=== PATIENT | female | born 1945 | race Two or more races ===

== ENCOUNTER 2020-08-09 09:25 | Outpatient (REF) | payer MEDICARE, SELFPAY ==
[2020-08-09 10:48] LABS: MANUAL DIFF FLAG NO
[2020-08-09 10:53] LABS: Basophils Absolute Auto 0.1 X10*3/uL (0.0-0.2); Basophils Percent Auto 0.5 % (0-2); Eosinophils Absolute Auto 0.1 X10*3/uL (0.0-0.4); Eosinophils Percent Auto 0.8 % (0-4); Hematocrit 32.3 % (37-47); Hemoglobin 10.2 g/dl (12.0-16.0); Imm Gran Abs Auto 0.07 X10*3/uL (0.00-0.03); Imm Gran Pct Auto 0.7 % (0.0-0.4); Lymphocytes Absolute Auto 2.1 X10*3/uL (1.2-4.9); Lymphocytes Percent Auto 21.4 % (20-40); Mean Corpuscular HGB Conc 31.6 g/dl (31.0-35.0); Mean Corpuscular Hemoglobin 29.1 pg (27.0-33.0); Mean Platelet Volume 9.4 fL (9.4-12.3); Monocytes Absolute Auto 0.6 X10*3/uL (0.1-1.2); Monocytes Percent Auto 6.3 % (2-11); Neutrophils Absolute Auto 6.8 X10*3/uL (2.0-8.3); Neutrophils Percent Auto 70.3 % (45-73); Platelet Count 414 X10*3/uL (160-400); Red Blood Count 3.51 X10*6/uL (4.20-5.50); Red Cell Distribution Width 13.2 % (11.0-16.0); White Blood Count 9.7 X10*3/uL (4.8-10.8)
[2020-08-09 11:19] LABS: Alanine Aminotransferase 21 U/L (0-31); Albumin Level 3.9 g/dL (3.5-5.0); Alkaline Phosphatase 67 U/L (39-117); Anion Gap 13 (12-20); Aspartate Amino Transferase 10 U/L (5-31); Bilirubin Total 0.3 mg/dL (0.0-1.0); Blood Urea Nitrogen 35 mg/dL (9-16); Calcium 9.3 mg/dL (8.4-10.2); Carbon Dioxide 24 mmol/L (22-29); Chloride 106 mmol/L (96-108); Cholesterol 153 mg/dL; Estimated Glomerular Filt Rate 41; Glucose Fasting 133 mg/dL (60-99); HDL Cholesterol 50 mg/dL; LDL Cholesterol Calculated 84 mg/dl; Potassium 4.2 mmol/l (3.3-5.1); Sodium 139 mmol/L (135-145); Total Protein 6.2 g/dL (6.5-8.0); Triglycerides 96 mg/dL
[2020-08-09 11:43] LABS: Vitamin D 25-OH Total 44.1 ng/mL (>30)
[2020-08-09 12:07] LABS: Folate > 20.0 ng/mL (> or = 4.0); Vitamin B12 380 pg/mL (200-900)
== END 2020-08-09 09:26 | disposition home or self-care (01) ==
LOC: HO.LAB 09:25
PROVIDERS: PCP Internal Medicine; Visit Provider Internal Medicine Hypertension Specialist
DX: E11.22 Type 2 diabetes mellitus with diabetic chronic kidney disease (principal); I12.9 Hypertensive chronic kidney disease with stage 1 through stage 4 chronic kidney disease, or unspecified chronic kidney disease; N18.30 Chronic kidney disease, stage 3 unspecified; E78.00 Pure hypercholesterolemia, unspecified; E53.8 Deficiency of other specified B group vitamins; E55.9 Vitamin D deficiency, unspecified
CPT/HCPCS: 36415; 80053; 80061; 82306; 82607; 82746; 85025

== ENCOUNTER 2020-08-17 13:29 | Emergency (ER) | payer MEDICARE, SELFPAY ==
[2020-08-17 13:43] VITALS: BP 154/58; BP 176/90; PULSE 104; PULSE 112; RESP 17; TEMP 37.1; BMI 38.9
--- NOTE | 2020-08-17 13:43 | ED_ITS ---
HPI - Chest Pain General Chief Complaint: Chest Pain Stated Complaint: chest pain, anxiety Time Seen by Provider: 08/17/20 13:43 Source: patient and EMS Mode of arrival: ambulatory Limitations: no limitations History of Present Illness HPI narrative: patient with no known coronary artery disease with history of hypertension diabetes, noticed pain in the left chest around 07:00 o'clock when she woke up lasted for 2- 3 minutes without any diaphoresis nausea vomiting or shortness breath patient had similar pain in the past with anxiety today she did not have much anxiety, pain was dull aching pain complaint: chest pain and chest heaviness Onset (ago): hour(s) (7) Prior episodes: Yes Onset: during rest Pain location: left chest Pain radiation: none Severity: mild Quality: aching Relieving factors: nothing Exacerbating factors: nothing Treatment prior to arrival: none Related Data Home Medications Medication Instructions Recorded Confirmed cholecalciferol (vitamin D3) 25 25 mcg PO DAILY 08/07/20 mcg (1,000 unit) tablet furosemide 20 mg tablet 20 mg PO DAILY 08/07/20 linagliptin 5 mg tablet 5 mg PO DAILY 08/07/20 metformin 500 mg tablet,extended 1,000 mg PO BEDTIME 08/07/20 release 24 hr montelukast 10 mg tablet 10 mg PO DAILY 08/07/20 Allergies Allergy/AdvReac Type Severity Reaction Status Date / Time fish derived [FISH] Allergy Unknown RASH, Unverified 07/26/20 15:57 ITCHY linagliptin [Tradjenta] AdvReac Unknown rash Verified 06/21/20 00:00 Review of Systems Review of Systems: REVIEW OF SYSTEMS: Pertinent positives and negatives are stated above in the history. GEN: no fevers, chills, fatigue HEENT: no nasal congestion, sore throat, ear pain NEURO: no headache, dizziness, focal weakness PULM: no cough, shortness of breath CV: no palpitations, LE edema ABD: no abdominal pain, nausea, vomiting, diarrhea : no dysuria, urgency, frequency SKIN: no rash ROS otherwise negative x 10 PMFSH Past Medical History Medical History Anxiety Asthma CHF (congestive heart failure) Depression Diabetes mellitus, type 2 Hypertension Renal insufficiency Surgical History H/O: hysterectomy Family History Family History Father No problems noted. Mother No problems noted. Social History Social History Alcohol intake: never Use of substances other than those prescribed or required for medical reasons: No Any prior treatment program specific to substance use: No Advance Directives: Yes Advance Directives on File: Yes Advance Directives Date on File: 11/09/00 Physical Exam Vital Signs and I&O and Narrative: Vital Signs and I&O: Vital Signs Temp 98.8 F 08/17/20 13:43 Pulse 104 H 08/17/20 13:43 Resp 17 08/17/20 13:43 BP 154/58 H 08/17/20 13:43 Intake & Output 08/16/20 08/17/20 08/17/20 18:59 06:59 18:59 Weight 84.395 kg Body Mass Index 38.9 Appearance: Alert. Oriented X3. No acute distress. Eyes: Pupils equal, round and reactive to light. ENT: Pharynx normal. Neck: Normal inspection. Neck supple. CVS: Normal heart rate and rhythm. Pulses normal. Respiratory: No respiratory distress. Breath sounds normal. Abdomen: Soft and nontender. Skin: Skin warm and dry. Normal skin color. Normal skin turgor. Extremities: No lower extremity edema. No lower extremity edema. Neuro: Oriented X 3. No motor deficit. No sensory deficit. Course Course Course Narrative: patient with history of anxiety and chest pain which happened in the past similar kind of pain came here for left chest pain lasted only for few minutes high sensitive troponin is negative normal EKG. Patient advised to follow-up with her primary care doctor chest pain likely from anxiety MDM - Chest Pain Differential Diagnosis Differential diagnosis: Likely stable angina, atypical chest pain and chest pain Lab Data Result diagrams: 08/17/20 14:17 08/17/20 14:17 Labs: Lab Results 08/17/20 08/17/20 08/17/20 Range/Units 14:17 14:17 14:17 WBC 10.0 (4.8-10.8) X10*3/uL RBC 3.63 L (4.20-5.50) X10*6/uL Hgb 10.5 L (12.0-16.0) g/dl Hct 33.5 L (37-47) % MCV 92.3 (80-98) fL MCH 28.9 (27.0-33.0) pg MCHC 31.3 (31.0-35.0) g/dl RDW 13.0 (11.0-16.0) % Plt Count 406 H (160-400) X10*3/uL MPV 9.2 L (9.4-12.3) fL Immature Gran % (Auto) 0.7 H (0.0-0.4) % Neut % (Auto) 68.8 (45-73) % Lymph % (Auto) 21.0 (20-40) % [place] % (Auto) 8.4 (2-11) % Eos % (Auto) 0.6 (0-4) % Baso % (Auto) 0.5 (0-2) % Lymph # (Auto) 2.1 (1.2-4.9) X10*3/uL [place] # (Auto) 0.8 (0.1-1.2) X10*3/uL Eos # (Auto) 0.1 (0.0-0.4) X10*3/uL Baso # (Auto) 0.1 (0.0-0.2) X10*3/uL Abs Immat Gran (auto) 0.07 H (0.00-0.03) X10*3/uL Absolute Neuts (auto) 6.9 (2.0-8.3) X10*3/uL Absolute Nucleated RBC 0.000 (0.0-0.012) X10*3/uL Nucleated RBC % (auto) 0.0 (0.0-0.2) /100WBC Hold Blue Top SEE NOTE Sodium 139 (135-145) mmol/L Potassium 4.5 (3.3-5.1) mmol/l Chloride 104 (96-108) mmol/L Carbon Dioxide 23 (22-29) mmol/L Anion Gap 17 (12-20) BUN 38 H (9-16) mg/dL Creatinine 1.46 H (0.5-1.4) mg/dL Estim Creat Clear Calc 30.1 Estimated GFR 35 Random Glucose 134 H (60-115) mg/dL Calcium 9.1 (8.4-10.2) mg/dL Troponin I High Sens (<3.5-17.0) ng/L 08/17/20 Range/Units 14:17 WBC (4.8-10.8) X10*3/uL RBC (4.20-5.50) X10*6/uL Hgb (12.0-16.0) g/dl Hct (37-47) % MCV (80-98) fL MCH (27.0-33.0) pg MCHC (31.0-35.0) g/dl RDW (11.0-16.0) % Plt Count (160-400) X10*3/uL MPV (9.4-12.3) fL Immature Gran % (Auto) (0.0-0.4) % Neut % (Auto) (45-73) % Lymph % (Auto) (20-40) % [place] % (Auto) (2-11) % Eos % (Auto) (0-4) % Baso % (Auto) (0-2) % Lymph # (Auto) (1.2-4.9) X10*3/uL [place] # (Auto) (0.1-1.2) X10*3/uL Eos # (Auto) (0.0-0.4) X10*3/uL Baso # (Auto) (0.0-0.2) X10*3/uL Abs Immat Gran (auto) (0.00-0.03) X10*3/uL Absolute Neuts (auto) (2.0-8.3) X10*3/uL Absolute Nucleated RBC (0.0-0.012) X10*3/uL Nucleated RBC % (auto) (0.0-0.2) /100WBC Hold Blue Top Sodium (135-145) mmol/L Potassium (3.3-5.1) mmol/l Chloride (96-108) mmol/L Carbon Dioxide (22-29) mmol/L Anion Gap (12-20) BUN (9-16) mg/dL Creatinine (0.5-1.4) mg/dL Estim Creat Clear Calc Estimated GFR Random Glucose (60-115) mg/dL Calcium (8.4-10.2) mg/dL Troponin I High Sens 7.5 (<3.5-17.0) ng/L ECG Data ECG #1: Attestation: I personally reviewed and interpreted this ECG as follows: ECG interpretation date: 08/17/20 ECG interpretation time: 13:58 Prior ECG tracings: not available for review Interpretation: EKGRate: 96 Rhythm: sinus Moseley: normal Normal P waves. Normal TREE. Normal QRS complex. ST T wave : no acute change qTC: normal normal EKG Scores Heart Score History: -0- slightly suspicious ECG: -0- normal Age: -2- > or = 65 Risk factory: -1- 1 or 2 risk factors ( hypertension, diabetes) Troponin: -0- < or = normal limit Score: 3 Risk: 1.7%
--- NOTE | 2020-08-17 13:44 | XR_ITS ---
EXAMINATION: XR CHEST CLINICAL INFORMATION: Chest pain COMPARISON: None TECHNIQUE: Frontal view of the chest was obtained. FINDINGS: The cardiac and mediastinal contours are normal. The lungs are clear. There is no pleural effusion or pneumothorax. There are degenerative changes of the spine. IMPRESSION: No evidence for acute disease in the chest.
--- NOTE | 2020-08-17 13:45 | ECG_ITS ---
Test Reason : CHEST PAIN Blood Pressure : / mmHG Vent. Rate : 096 BPM Atrial Rate : 096 BPM P-R Int : 148 ms QRS Dur : 074 ms QT Int : 336 ms P-R-T Axes : 059 033 034 degrees QTc Int : 424 ms Normal sinus rhythm Normal ECG When compared with ECG of 02-JUN-2017 08:59, Premature atrial complexes are no longer Present Referred By: Dylan Cosme Electronically Signed By:VISHAL MARQUEZ MD
[2020-08-17 14:21] LABS: MANUAL DIFF FLAG NO
[2020-08-17 14:26] LABS: Basophils Absolute Auto 0.1 X10*3/uL (0.0-0.2); Basophils Percent Auto 0.5 % (0-2); Eosinophils Absolute Auto 0.1 X10*3/uL (0.0-0.4); Eosinophils Percent Auto 0.6 % (0-4); Hematocrit 33.5 % (37-47); Hemoglobin 10.5 g/dl (12.0-16.0); Imm Gran Abs Auto 0.07 X10*3/uL (0.00-0.03); Imm Gran Pct Auto 0.7 % (0.0-0.4); Lymphocytes Absolute Auto 2.1 X10*3/uL (1.2-4.9); Mean Corpuscular HGB Conc 31.3 g/dl (31.0-35.0); Mean Corpuscular Hemoglobin 28.9 pg (27.0-33.0); Mean Corpuscular Volume 92.3 fL (80-98); Mean Platelet Volume 9.2 fL (9.4-12.3); Monocytes Absolute Auto 0.8 X10*3/uL (0.1-1.2); Monocytes Percent Auto 8.4 % (2-11); Neutrophils Absolute Auto 6.9 X10*3/uL (2.0-8.3); Neutrophils Percent Auto 68.8 % (45-73); Platelet Count 406 X10*3/uL (160-400); Red Blood Count 3.63 X10*6/uL (4.20-5.50)
[2020-08-17 14:48] LABS: Anion Gap 17 (12-20); Blood Urea Nitrogen 38 mg/dL (9-16); Calcium 9.1 mg/dL (8.4-10.2); Carbon Dioxide 23 mmol/L (22-29); Chloride 104 mmol/L (96-108); Creatinine Clr Calc Pharmacy 30.1; Estimated Glomerular Filt Rate 35; Glucose Random 134 mg/dL (60-115); Potassium 4.5 mmol/l (3.3-5.1); Sodium 139 mmol/L (135-145)
[2020-08-17 14:55] LABS: Troponin-I High Sensitivity 7.5 ng/L (<3.5-17.0)
[2020-08-17] MEDS: Aspirin 81 MG TAB.CHEW 162 MG PO (14:57)
[2020-08-17 16:36] VITALS: BP 143/59; PULSE 98; RESP 20; O2SAT 99
== END 2020-08-17 16:38 | disposition home or self-care (01) ==
PROVIDERS: Emergency Provider Internal Medicine; PCP Internal Medicine
DX: R07.9 Chest pain, unspecified (principal); F41.1 Generalized anxiety disorder; F43.0 Acute stress reaction; Z79.899 Other long term (current) drug therapy
CPT/HCPCS: 36415; 71045; 80048; 84484; 85025; 93005; 99284

== ENCOUNTER → 2020-08-28 11:28 | Outpatient (BNVA) | payer MEDICARE, SELFPAY | PROVIDERS: PCP Internal Medicine; Referring Provider Internal Medicine; Visit Provider Internal Medicine | DX: J44.9 Chronic obstructive pulmonary disease, unspecified (principal); G47.33 Obstructive sleep apnea (adult) (pediatric); R53.1 Weakness; E66.9 Obesity, unspecified; Z79.899 Other long term (current) drug therapy | CPT/HCPCS: 99213 ==

== ENCOUNTER 2020-10-03 10:01 | Outpatient (REF) | payer MEDICARE, SELFPAY ==
--- NOTE | 2020-10-03 | MM_ITS ---
EXAMINATION: MM SCREENING DIGITAL MAMMOGRAPHY, BILATERAL CLINICAL INFORMATION: Screening. Asymptomatic. The lifetime risk of breast cancer based on the Tyrer-Cuzick Model is 3%. COMPARISON: Mammography: 05/16/2019, 01/22/2017, 07/24/2015 TECHNIQUE: Digital mammography is performed in craniocaudal and mediolateral oblique views along with computer-aided detection (CAD). Additional bilateral exaggerated CC views are provided. FINDINGS: There are scattered areas of fibroglandular density (ACR BI-RADS breast composition Category b). There are no significant masses, abnormal calcifications, or other abnormalities. No developing density. No significant changes from prior studies. MM/MM screening mammo BI IMPRESSION: There are no significant changes from prior exams. ASSESSMENT: BI-RADS 1: Negative RECOMMENDATION: Routine annual mammography screening. This patient's information was entered into a reminder system with a target due date for their next mammogram.
== END 2020-10-03 10:02 | disposition home or self-care (01) ==
LOC: HO.MAMMO 10:01
PROVIDERS: PCP Internal Medicine; Visit Provider Internal Medicine
DX: Z12.31 Encounter for screening mammogram for malignant neoplasm of breast (principal)
CPT/HCPCS: 77067

== ENCOUNTER 2020-10-09 15:02 | Outpatient (REF) | payer MEDICARE, SELFPAY ==
[2020-10-13 14:32] LABS: Triiodothyronine T3 Reverse 22 ng/dL (8-25)
== END 2020-10-09 15:03 | disposition home or self-care (01) ==
LOC: HO.LAB 15:02
PROVIDERS: PCP Internal Medicine; Visit Provider Psychiatry & Neurology Neurology
DX: R25.1 Tremor, unspecified (principal)
CPT/HCPCS: 84436; 84482

== ENCOUNTER → 2020-12-19 11:18 | Outpatient (BNVA) | payer MEDICARE, SELFPAY | PROVIDERS: PCP Internal Medicine; Visit Provider Internal Medicine | DX: Z13.89 Encounter for screening for other disorder (principal) | CPT/HCPCS: Q3014 ==

== ENCOUNTER → 2021-01-31 08:23 | Outpatient (BNVA) | payer MEDICARE, SELFPAY | PROVIDERS: PCP Internal Medicine; Visit Provider Internal Medicine | DX: J44.9 Chronic obstructive pulmonary disease, unspecified (principal); G47.33 Obstructive sleep apnea (adult) (pediatric); E66.9 Obesity, unspecified | CPT/HCPCS: 99212 ==

== ENCOUNTER 2021-03-05 09:00 | Outpatient (RCR) | payer MEDICARE, SELFPAY ==
--- NOTE | 2021-02-12 10:02 | MHC.OT.OEV ---
[address] [phone] F: [phone] Occupational Therapy Evaluation Diagnosis: Left elbow pain s/p contusion Date of Onset: 12/10/20 Date of Surgery: Attending Provider: Dr Jones Prescribed Treatment: Eval and Treat MD Follow Up Appointment: History of Current Condition: Pt bumped her left elbow a couple months ago and presents w/ persistant pain. 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 Living Situation, Family and/or Social Support: Lives alone, family nearby Current Level of Function and Occupation Self Care, Employment, Leisure: Pt limited at baseline w/ minimal active participation in care Still able to cut food and eat, using right hand for most basic tasks Sleep: No change in sleep due to elbow Driving: N/A Vision: Balance: Pain Assessment Pain Score: 8 Pain Scale Used: Numeric (0 - 10) Pain Location and Description: Left posterior elbow, tender, sharp 8/10 resting/constant Aggravating Factors: Moving the arm Alleviating Factors: Tylenol w/ some relief Skin and Soft Tissue Assessment Skin and Soft Tissue: Comments: Edema Excess adipose tissue Nerve assessment Ulnar Nerve: WFL Median Nerve: B/L Impaired Radial Nerve: WFL Comments: Sensory Assessment Temperature: Light Touch: Proprioception: Vibration: Comments: Denies sesnory changes or numbness/tingling Edema Assessment Upper Extremity: Lower Extremity: Comments: Dexterity Assessment Dexterity: Comments: Special Tests Comments: AROM(PROM) Strength Cervical Cervical Flexion: Cervical Extension: Cervical Lateral Flexion: Cervical Rotation: Comments: Shoulder Flexion: R 85 L 75 Extension: Abduction: Internal Rotation: External Rotation: Comments: Flexion: Extension: Abduction: Internal Rotation: External Rotation: Comments: Elbow Flexion: R 150 L 115 Extension: R 0 L 15 Pronation: Supination: Comments: Pulling pain in elbow w/ flexion Flexion: Extension: Pronation: Supination: Comments: Wrist Flexion: Extension: Ulnar Deviation: Radial Deviation: Comments: Flexion: Extension: Ulnar Deviation: Radial Deviation: Comments: Thumb Thumb CMC Flexion: Thumb MCP Flexion: Thumb IP Flexion: Radial Abduction: Palmar Abduction: Perry (Kapandji 0-10): Comments: Digits Index MCP: PIP: DIP: Long MCP: PIP: DIP: Ring MCP: PIP: DIP: Small MCP: PIP: DIP: Comments: WFL Gross Grasp: R 18lb L 15lb Lateral Pinch: Two-Point Pinch: Three-Jaw Anderson: Comments: Patient Education Primary Language: Residential Treatment Specialist Required: Yes Current Knowledge: Understands information with skills for self-management Teaching Method: Demonstration Handouts Verbal Education Needs Identified on Evaluation: ADL's Disease Information Exercise Pain Safety How did patient/family demonstrate learning? Patient verbalizes Barriers to Learning: None Readiness for Learning: Accepting Who was educated? Patient Caregiver Comments: Plan of Care Assessment: 75 yo female presents w/ persistent left elbow pain after bumping her elbow a couple months ago. 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 She reports no significant ADL limitations due to high needs at baseline, but does have decreased elbow ROM. Strength and shoulder ROM are limited bilaterally. She reports high resting pain in posterior elbow, tender to touch and increases w/ elbow range. She will benefit from brief course of OT for HEP to increase range and strength and educate on joint protection to allow for healing elbow s/p contusion. STG Duration: 3 weeks Short Term Goals: Ind w/ HEP B/L shoulder flex >100 degrees B/L gross grasp >20lb Full elbow extension <3/10 resting pain Good awareness of joint protection of left elbow LTG Duration: Coupon Manifest Clerk Goals: Frequency and Duration: The patient will be seen 1x/wk for 3 weeks Treatment Plan: Therapeutic Exercise Therapeutic Activity Home Exercise Program Patient Education Edema Control Ultrasound MHP Cold Packs Soft Tissue Mobilization Electronically Signed By: Korin Arce OTR/L Reviewed/agree with student documentation: N/A Therapist: Please sign and return to therapist, Thank you for your referral.
--- NOTE | 2021-03-05 09:57 | MHC.OT.DC ---
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 Goals met Pt with mild elbow edema and low pain at night, otherwise pt reports being at her prior level of function I anticipate continued improvement with elbow protection techniques and use of Ktape for pain and edema. Pain free during day,low pain at night. Electronically Signed By: Sapna Santos OT CHT CLT Reviewed/agree with student documentation: N/A Therapist: Please Sign and return to therapist, thank you for your referral.
== END 2021-03-05 09:58 | disposition other institution (70) ==
LOC: HO.OT 09:00
PROVIDERS: PCP Internal Medicine; Visit Provider Internal Medicine
DX: M25.522 Pain in left elbow (principal)
CPT/HCPCS: 97035; 97110; 97140; 97165

== ENCOUNTER 2021-04-03 09:00 | Outpatient (RCR) | payer MEDICARE, SELFPAY ==
[2021-03-25 09:00] VITALS: BP 155/67; PULSE 91
--- NOTE | 2021-05-03 10:02 | MHC.PT.DC ---
[facility] [place] Office [place] Office [place] Office [address] [phone] F: [phone] F: [phone] F: [phone] F: [phone] Physical Therapy Discharge Report Diagnosis: LOW BACK PAIN Date of Surgery: NA Date of Evaluation: 03/25/21 Date of Discharge: Treatments to Date: 2 Cancellations to Date: 0 No Shows to Date: 1 Discharge Status: Discharge Summary: AT LAST ATTENDED VISIT, TREATING THERAPIST REPORTS: 04/03/2021 Meena arrived today stating she feels okay. Great difficulty noted with sit -> stand -> sit -> supine. Mat exercises were difficult for Meena, quad sets increased R knee pain. She put forth a lot of effort into the exercises, muscle activation was palpated. Hip ABD and brace marching were best tolerated for mat exercises. Sitting exercises were tolerated much better. PT Called Meena's to discuss the possibility of home PT d/t Meena expressing how difficult coming to outpatient PT was for her. Continue per tolerance. FOLLOWING TREATMENT IT WAS DISCUSSED THAT PERHAPS HOME CARE WOULD BE MORE APPROPRIATE TO WHICH FAMILY AGREED AND HAS PURSUED. SHE IS DCeD FROM OUR SERVICES AT THIS TIME. Electronically signed by: CLARA BECK PT, DPT Please sign and return to therapist. Thank you for your referral.
== END 2021-04-03 15:00 | disposition home or self-care (01) ==
LOC: HO.PT 09:00
PROVIDERS: Visit Provider Internal Medicine
DX: M54.9 Dorsalgia, unspecified (principal)
CPT/HCPCS: 97110; 97161; 97535

== ENCOUNTER → 2021-06-05 09:42 | Outpatient (BNVA) | payer MEDICARE, SELFPAY | PROVIDERS: PCP Internal Medicine; Visit Provider Internal Medicine | DX: J44.9 Chronic obstructive pulmonary disease, unspecified (principal); G47.33 Obstructive sleep apnea (adult) (pediatric); E66.9 Obesity, unspecified; Z79.899 Other long term (current) drug therapy | CPT/HCPCS: 99212 ==

== ENCOUNTER → 2021-10-08 10:16 | Outpatient (BNVA) | payer MEDICARE, SELFPAY | PROVIDERS: PCP Internal Medicine; Visit Provider Internal Medicine | DX: J44.9 Chronic obstructive pulmonary disease, unspecified (principal); R06.02 Shortness of breath; E11.9 Type 2 diabetes mellitus without complications; I10 Essential (primary) hypertension; E78.00 Pure hypercholesterolemia, unspecified; E66.9 Obesity, unspecified; E55.9 Vitamin D deficiency, unspecified; G47.33 Obstructive sleep apnea (adult) (pediatric); F41.8 Other specified anxiety disorders; Z88.8 Allergy status to other drugs, medicaments and biological substances; Z91.013 Allergy to seafood; Z79.84 Long term (current) use of oral hypoglycemic drugs | CPT/HCPCS: 99212 ==

== ENCOUNTER 2022-03-19 09:48 | Outpatient (REF) | payer OTHER, SELFPAY ==
[2022-03-19 10:59] LABS: COVID-19 Test Positive (Negative)
== END 2022-03-19 09:49 | disposition home or self-care (01) ==
LOC: HO.LAB 09:48
PROVIDERS: Visit Provider Internal Medicine
DX: Z20.822 Contact with and (suspected) exposure to COVID-19 (principal)
CPT/HCPCS: 87635; C9803

== ENCOUNTER 2022-03-28 09:08 | Inpatient (IN) | payer OTHER, SELFPAY ==
[2022-03-28] VITALS (9 sets, daily range): BP systolic 143–192; BP diastolic 51–95; PULSE 101–140; RESP 18–32; TEMP 36.4–36.9; O2SAT 93–99; BMI 30.2
--- NOTE | ~2022-03-28 | NM_ITS ---
EXAMINATION: PULMONARY PERFUSION STUDY CLINICAL INFORMATION: Shortness of breath, elevated d-dimer COMPARISON: No previous lung scan is available for comparison. Radiographs of the chest dated 03/28/2022, the same date as this lung scan, are available for comparison. TECHNIQUE: Following the intravenous administration of 3.8 mCi Tc-99m MAA an 8-view perfusion study was performed using a dual detector gamma scintillation camera. No ventilation images were obtained. FINDINGS: Perfusion images: No segmental perfusion defects are present. There is minimal heterogeneity present bilaterally. There is mild blunting of the right costophrenic angle, best visualized on the VILLATORO and LPO views. No additional focal anatomic appearing perfusion defects are present. The cardiac silhouette is mildly dilated. The contemporaneous chest radiographs show bilateral small pleural effusions and pulmonary vascular congestion and cardiomegaly. NM/NM pul perfusion IMPRESSION: Very low probability of pulmonary embolism.
--- NOTE | ~2022-03-28 | XR_ITS ---
EXAMINATION: XR CHEST CLINICAL INFORMATION: Shortness of breath. COMPARISON: 08/17/2020 chest radiograph. TECHNIQUE: 2 views of the chest were obtained. FINDINGS: Increased pulmonary vascular markings with very small bilateral pleural effusions. The heart is mildly enlarged. The mediastinal structures are unremarkable. XR/XR chest 2V IMPRESSION: Mild CHF and very small bilateral pleural effusions.
--- NOTE | 2022-03-28 09:59 | ECG_ITS ---
Test Reason : diff breathing Blood Pressure : / mmHG Vent. Rate : 111 BPM Atrial Rate : 111 BPM P-R Int : 152 ms QRS Dur : 082 ms QT Int : 328 ms P-R-T Axes : 058 065 042 degrees QTc Int : 446 ms Sinus tachycardia Otherwise normal ECG When compared with ECG of 17-AUG-2020 13:58, No significant change was found Referred By: Sofi Anderson Electronically Signed By:MAN HAZEL
--- NOTE | 2022-03-28 09:59 | PC.NURSE ---
provider with nurse and senior wealth advisor at bedside. She ran out of nebulizer 2 days ago and pharm did not have script ready. Unsure if she has high BP.
--- NOTE | 2022-03-28 10:03 | ED.ASTHMA ---
HPI - Asthma General Chief Complaint: Asthma Stated Complaint: Difficulty breathing Time Seen by Provider: 03/28/22 09:59 Source: patient, family (son) and diplomatic interpreter Mode of arrival: ambulatory Limitations: language barrier History of Present Illness HPI Narrative: Patient is a 76 year old female presenting to the emergency department today with increased shortness of breath/difficulty breathing. Patient states that she tested COVID-19 positive 10 days ago and has been having increasing shortness of breath over the last 48 hours. Patient states that she ran out of her nebulizer 2 days ago as well. Patient denies any dizziness, lightheadedness, abdominal pain, nausea, vomiting, fever, chills, blurry vision, double vision, loss of vision, chest pain, back pain, night sweats, pain with urination, increased urinary frequency, increased urinary urgency, blood in her urine or stool, syncope or a near syncopal episode, recent trauma or falls, bowel incontinence, bladder incontinence, bowel retention, bladder retention, or any other complaints at this time. Patient states that she has a history of asthma but denies any cardiac history. MD complaint: shortness of breath Onset (ago): day(s) Severity: mild Context: recent URI (COVID-19) Associated symptoms: none Treatments Prior to Arrival: inhaled bronchodilator Related Data Current Asthma Therapy: inhaled bronchodilator Home Medications Medication Instructions Recorded Confirmed fluticasone 250 mcg-salmeterol 50 ea INHALATION 08/28/20 03/17/22 mcg/dose blistr powdr for inhalation alcohol swabs 0 pad TOPICAL 01/31/21 03/17/22 blood glucose control high and low #1 ea 01/31/21 03/17/22 solution blood sugar diagnostic #10 ea 01/31/21 03/17/22 blood-glucose meter #1 ea 01/31/21 03/17/22 lancets 30 gauge #100 ea 01/31/21 03/17/22 lancing device #1 ea 01/31/21 03/17/22 Previous Rx's Medication Instructions Recorded atorvastatin 80 mg tablet 80 mg PO DAILY 90 Days #90 tab 07/10/21 furosemide 20 mg tablet 20 mg PO DAILY 90 Days #90 tab 07/10/21 lidocaine 5 % topical patch 1 patch TOPICAL DAILY 30 Days #30 09/03/21 ea aspirin 81 mg chewable tablet 81 mg PO DAILY 30 Days #30 tab 10/08/21 lisinopril 10 mg tablet 10 mg PO DAILY 90 Days #90 tab 01/31/22 albuterol sulfate 2.5 mg (3 mL) INHALATION Q6H PRN 02/20/22 30 Days #360 ml cholecalciferol (vitamin D3) 25 25 mcg PO DAILY 90 Days #90 tab 02/24/22 mcg (1,000 unit) tablet montelukast 10 mg tablet 10 mg PO DAILY 90 Days #90 tab 02/24/22 albuterol sulfate 90 mcg/actuation 1 puff PO Q6H 30 Days #8.5 g 03/03/22 aerosol inhaler diphenhydramine HCl 25 mg capsule 25 mg PO TID PRN 30 Days #90 cap 03/25/22 (Banophen) metformin 500 mg tablet,extended 1,000 mg PO BEDTIME 90 Days #180 03/25/22 release 24 hr tab Allergies Allergy/AdvReac Type Severity Reaction Status Date / Time fish derived [FISH] Allergy Mild RASH, Verified 03/28/22 09:22 ITCHY, SWELLING linagliptin [Tradjenta] AdvReac Mild rash Verified 03/28/22 09:22 Review of Systems Constitutional: Constitutional: Reports no additional constitutional complaints, Denies chills, Denies fever(s) and Denies night sweats Eyes: Eyes: Reports no additional eye complaints, Denies blurry vision, Denies change in vision, Denies diplopia, Denies eye discharge, Denies loss of vision and Denies eye pain ENT: Denies dizziness Cardiovascular: Cardiovascular: Reports no additional cardiovascular complaints, Denies chest pain, Denies lightheadedness, Denies Loss of Consciousness, Reports dyspnea and Reports dyspnea on exertion Respiratory: Respiratory: Reports dyspnea and Reports dyspnea on exertion Gastrointestinal: Gastrointestinal: Reports no additional gastrointestinal complaints, Denies abdominal pain, Denies melena, Denies hematochezia, Denies change in bowel habits and Denies change in stool character Genitourinary: Genitourinary: Denies hematuria, Denies urinary frequency, Denies dysuria, Denies urinary incontinence, Denies urinary hesitancy and Denies urinary urgency Musculoskeletal: Musculoskeletal: Reports no additional musculoskeletal complaints, Denies numbness and Denies tingling Neurologic: Denies dizziness, Denies loss of vision, Denies numbness and Denies tingling Psychiatric: Psychiatric: Reports no additional psychiatric complaints Endocrine: Endocrine: Reports no additional endocrine complaints Hematologic/Lymphatic: Hematologic/Lymphatic: Reports no additional hematologic/lymphatic complaints Allergic/Immunologic: Allergic/Immunologic: Reports no additional allergic/immunologic complaints [facility] Past Medical History Attestation statement: The following information was validated with the patient. Source: old records reviewed Medical History Anemia, normocytic normochromic Anxiety Asthma Back pain CHF (congestive heart failure) COPD (chronic obstructive pulmonary disease) Depression Diabetes mellitus Diabetes mellitus, type 2 Essential hypertension Hypertension Hypovitaminosis D Left elbow pain Leg weakness Obesity (BMI 30-39.9) Obstructive sleep apnea syndrome Polyuria Pure hypercholesterolemia Renal insufficiency Tachycardia Wheelchair bound Surgical History H/O: hysterectomy History of tubal ligation Family History Family History Father Cancer Mother Diabetes Daughter Myocardial infarction Social History Social History Housing: Apartment Alcohol intake: never Patient Tobacco Use Status: Never used Tobacco e-Cigarette/Vaping Use: Never Used Second Hand Smoke Exposure: No Advance Directives: Yes Advance Directives Information Provided: Yes Advance Directives on File: No Advance Directives Date on File: 11/09/00 service: No Current occupational status: disabled Cognitive needs: Yes Hearing needs: No Vision needs: No Physical Exam Vital Signs: Vital Signs: Last Vital Signs Temp 97.8 F 03/28/22 11:17 Pulse 124 H 03/28/22 15:41 Resp 32 H 03/28/22 15:41 BP 162/85 H 03/28/22 15:41 Pulse Ox 98 03/28/22 15:51 BMI result Body Mass Index 30.2 Const: General: cooperative, no acute distress, alert and awake Nutritional Appearance: well nourished Orientation/consciousness: patient oriented x3 Limitations: no limitations HEENT: Head: Yes normal to inspection and Yes atraumatic Ears: hearing grossly normal bilaterally and external ears normal General nose exam: Normal external nose present, no nasal discharge noted and no epistaxis Face and sinus: Yes normal facial exam, No abrasion and No laceration Mouth: Normal oral and palatal mucosa present, no drooling and no muffled voice Eyes: General: appearance normal, both eyes and all related structures Periorbital: periorbital findings normal Eyelids: Yes eyelids normal Conjunctivae: conjunctivae normal Pupils: Equal, round and reactive pupils present EOM: EOMs intact bilaterally Neck: Neck: Yes normal visual inspection, Yes full ROM and Yes no lymphadenopathy Chest: Chest palpation & inspection: normal inspection of the chest Resp: Effort & Inspection: able to speak in complete sentences and labored Auscultation: diminished lung sounds Cardio: Rate: tachycardic Rhythm: regular rhythm GI: Inspection: Yes normal to inspection Neuro: General: patient oriented x3 and moves all extremities Cranial nerves: Yes Equal, round and reactive pupils present Cognition (Neuro): normal cognition Motor exam (neuro): 5/5 motor strength present throughout Sensory Exam: Normal double simultaneous stimulation for sensation Coordination: [id number] test normal Extrem: General: Yes normal to inspection, Yes full ROM and Yes capillary refill normal Psych: Appearance: grossly normal Mental Status: mental status grossly normal Affect: normal affect Attitude: cooperative Thought process: Normal thought process present Thought content: Normal thought content present Insight: Good insight present (Psych) MDM - Asthma MDM Narrative Medical decision making narrative: Patient is a 76 year old female presenting to the emergency department today with shortness of breath. Patient's physical exam showed diminished lung sounds throughout with mild labored breathing. Patient's blood work showed an elevated d dimer at 932 and an elevated BNP of 662. Patient's magnesium was somewhat decreased at 1.5. Patient's COVID-19 test was still positive however, she was positive 9 days ago. Patient's EKG was unremarkable. Patient's chest x-ray showed evidence of CHF and very small bilateral pleural effusions. Patient's VQ scan showed low probability of pulmonary embolism. I explained my physical exam findings as well as all test results to the patient and the patient's son. I answered all questions asked by the patient and the patient's son. Patient received IV Lasix, magnesium, a duoneb, and decadron. I spoke to Rosalinda Darling who agreed to hospital admission. Patient and her son verbalized agreement and understanding with this treatment plan and admission. Differential Diagnosis Differential diagnosis: Likely Acute exacerbation and COPD exacerbation Medical Records Attestation: I reviewed the patient's medical records. Lab Data Attestation: I reviewed the patient's lab results. Result diagrams: 03/28/22 11:17 03/28/22 11:17 Labs: Lab Results 03/28/22 03/28/22 03/28/22 Range/Units 10:26 10:26 11:17 WBC 8.2 (4.8-10.8) X10*3/uL RBC 3.13 L (4.20-5.50) X10*6/uL Hgb 9.1 L (12.0-16.0) g/dl Hct 29.0 L (37.0-47.0) % MCV 92.7 (80.0-98.0) fL MCH 29.1 (27.0-33.0) pg MCHC 31.4 (31.0-35.0) g/dl RDW 12.6 (11.0-16.0) % Plt Count 367 (160-400) X10*3/uL MPV 9.2 L (9.4-12.3) fL Immature Gran % (Auto) 1.0 H (0.0-0.4) % Neut % (Auto) 72.9 (45-73) % Lymph % (Auto) 19.8 L (20-40) % [place] % (Auto) 5.4 (2-11) % Eos % (Auto) 0.5 (0-4) % Baso % (Auto) 0.4 (0-2) % Lymph # (Auto) 1.6 (1.2-4.9) X10*3/uL [place] # (Auto) 0.4 (0.1-1.2) X10*3/uL Eos # (Auto) 0.0 (0.0-0.4) X10*3/uL Baso # (Auto) 0.0 (0.0-0.2) X10*3/uL Abs Immat Gran (auto) 0.08 H (0.00-0.03) X10*3/uL Absolute Neuts (auto) 6.0 (2.0-8.3) x10*3/uL Absolute Nucleated RBC 0.000 (0.0-0.012) X10*3/uL Nucleated RBC % (auto) 0.0 (0.0-0.2) /100WBC PT (9.9-13.0) SEC INR (0.9-1.1) APTT (24.1-38.0) SEC D-Dimer High Sensitivty NG/ML VBG pH (7.32-7.43) VBG pCO2 mmHg VBG pO2 mmHg VBG HCO3 (22-26) mmol/L VBG O2 Saturation % VBG Base Excess mmol/L Sodium (135-145) mmol/L Potassium (3.3-5.1) mmol/L Chloride (96-108) mmol/L Carbon Dioxide (22-29) mmol/L Anion Gap (12-20) BUN (9-16) mg/dL Creatinine (0.5-1.4) mg/dL Estim Creat Clear Calc Estimated GFR Random Glucose (60-115) mg/dL Lactic Acid (0.5-2.0) mmol/L Calcium (8.4-10.2) mg/dL Magnesium (1.6-2.6) mg/dL Total Bilirubin (0.0-1.0) mg/dL AST (5-31) U/L ALT (0-31) U/L Alkaline Phosphatase (39-117) U/L Troponin I High Sens (<3.5-17.0) ng/L B-Natriuretic Peptide (<100) pg/mL Total Protein (6.5-8.0) g/dL Albumin (3.5-5.0) g/dL COVID-19 (RUDDY) Positive A (Negative) COVID-19 Clin Com See Note Influenza Type A (NAMRATA) Negative (Negative) Influenza Type B (NAMRATA) Negative (Negative) Influenza A & B Note See Note 03/28/22 03/28/22 03/28/22 Range/Units 11:17 11:17 11:17 WBC (4.8-10.8) X10*3/uL RBC (4.20-5.50) X10*6/uL Hgb (12.0-16.0) g/dl Hct (37.0-47.0) % MCV (80.0-98.0) fL MCH (27.0-33.0) pg MCHC (31.0-35.0) g/dl RDW (11.0-16.0) % Plt Count (160-400) X10*3/uL MPV (9.4-12.3) fL Immature Gran % (Auto) (0.0-0.4) % Neut % (Auto) (45-73) % Lymph % (Auto) (20-40) % [place] % (Auto) (2-11) % Eos % (Auto) (0-4) % Baso % (Auto) (0-2) % Lymph # (Auto) (1.2-4.9) X10*3/uL [place] # (Auto) (0.1-1.2) X10*3/uL Eos # (Auto) (0.0-0.4) X10*3/uL Baso # (Auto) (0.0-0.2) X10*3/uL Abs Immat Gran (auto) (0.00-0.03) X10*3/uL Absolute Neuts (auto) (2.0-8.3) x10*3/uL Absolute Nucleated RBC (0.0-0.012) X10*3/uL Nucleated RBC % (auto) (0.0-0.2) /100WBC PT 11.5 (9.9-13.0) SEC INR 1.0 (0.9-1.1) APTT 30.5 (24.1-38.0) SEC D-Dimer High Sensitivty 932 NG/ML VBG pH (7.32-7.43) VBG pCO2 mmHg VBG pO2 mmHg VBG HCO3 (22-26) mmol/L VBG O2 Saturation % VBG Base Excess mmol/L Sodium 138 (135-145) mmol/L Potassium 4.6 (3.3-5.1) mmol/L Chloride 107 (96-108) mmol/L Carbon Dioxide 24 (22-29) mmol/L Anion Gap 12 (12-20) BUN 34 H (9-16) mg/dL Creatinine 1.63 H (0.5-1.4) mg/dL Estim Creat Clear Calc 24.2 Estimated GFR 31 Random Glucose 144 H (60-115) mg/dL Lactic Acid 1.6 (0.5-2.0) mmol/L Calcium 9.2 (8.4-10.2) mg/dL Magnesium 1.5 L (1.6-2.6) mg/dL Total Bilirubin 0.2 (0.0-1.0) mg/dL AST 13 (5-31) U/L ALT 19 (0-31) U/L Alkaline Phosphatase 69 (39-117) U/L Troponin I High Sens (<3.5-17.0) ng/L B-Natriuretic Peptide (<100) pg/mL Total Protein 6.2 L (6.5-8.0) g/dL Albumin 3.7 (3.5-5.0) g/dL COVID-19 (RUDDY) (Negative) COVID-19 Clin Com Influenza Type A (NAMRATA) (Negative) Influenza Type B (NAMRATA) (Negative) Influenza A & B Note 03/28/22 03/28/22 03/28/22 Range/Units 11:18 11:22 14:16 WBC (4.8-10.8) X10*3/uL RBC (4.20-5.50) X10*6/uL Hgb (12.0-16.0) g/dl Hct (37.0-47.0) % MCV (80.0-98.0) fL MCH (27.0-33.0) pg MCHC (31.0-35.0) g/dl RDW (11.0-16.0) % Plt Count (160-400) X10*3/uL MPV (9.4-12.3) fL Immature Gran % (Auto) (0.0-0.4) % Neut % (Auto) (45-73) % Lymph % (Auto) (20-40) % [place] % (Auto) (2-11) % Eos % (Auto) (0-4) % Baso % (Auto) (0-2) % Lymph # (Auto) (1.2-4.9) X10*3/uL [place] # (Auto) (0.1-1.2) X10*3/uL Eos # (Auto) (0.0-0.4) X10*3/uL Baso # (Auto) (0.0-0.2) X10*3/uL Abs Immat Gran (auto) (0.00-0.03) X10*3/uL Absolute Neuts (auto) (2.0-8.3) x10*3/uL Absolute Nucleated RBC (0.0-0.012) X10*3/uL Nucleated RBC % (auto) (0.0-0.2) /100WBC PT (9.9-13.0) SEC INR (0.9-1.1) APTT (24.1-38.0) SEC D-Dimer High Sensitivty NG/ML VBG pH 7.35 (7.32-7.43) VBG pCO2 41 mmHg VBG pO2 38 mmHg VBG HCO3 22 (22-26) mmol/L VBG O2 Saturation 54.0 % VBG Base Excess -2.5 mmol/L Sodium (135-145) mmol/L Potassium (3.3-5.1) mmol/L Chloride (96-108) mmol/L Carbon Dioxide (22-29) mmol/L Anion Gap (12-20) BUN (9-16) mg/dL Creatinine (0.5-1.4) mg/dL Estim Creat Clear Calc Estimated GFR Random Glucose (60-115) mg/dL Lactic Acid (0.5-2.0) mmol/L Calcium (8.4-10.2) mg/dL Magnesium (1.6-2.6) mg/dL Total Bilirubin (0.0-1.0) mg/dL AST (5-31) U/L ALT (0-31) U/L Alkaline Phosphatase (39-117) U/L Troponin I High Sens 31.4 H 41.3 H (<3.5-17.0) ng/L B-Natriuretic Peptide 662 H (<100) pg/mL Total Protein (6.5-8.0) g/dL Albumin (3.5-5.0) g/dL COVID-19 (RUDDY) (Negative) COVID-19 Clin Com Influenza Type A (NAMRATA) (Negative) Influenza Type B (NAMRATA) (Negative) Influenza A & B Note Imaging Data Chest x-ray: Attestation: I personally reviewed and interpreted this imaging study as follows: My impression: CHF exacerbation. Radiologist's impression: EXAMINATION: XR CHEST CLINICAL INFORMATION: Shortness of breath. COMPARISON: 08/17/2020 chest radiograph. TECHNIQUE: 2 views of the chest were obtained. FINDINGS: Increased pulmonary vascular markings with very small bilateral pleural effusions. The heart is mildly enlarged. The mediastinal structures are unremarkable. XR/XR chest 2V IMPRESSION: Mild CHF and very small bilateral pleural effusions. Dictated By: Bryan Sr MD Signed By: Electronically signed by Bryan Sr MD 03/28/22 1216 VQ Scan: Attestation: I personally reviewed and interpreted this imaging study as follows: Radiologist's impression: EXAMINATION: PULMONARY PERFUSION STUDY CLINICAL INFORMATION: Shortness of breath, elevated d-dimer COMPARISON: No previous lung scan is available for comparison. Radiographs of the chest dated 03/28/2022, the same date as this lung scan, are available for comparison. TECHNIQUE: Following the intravenous administration of 3.8 mCi Tc-99m MAA an 8-view perfusion study was performed using a dual detector gamma scintillation camera. No ventilation images were obtained. FINDINGS: Perfusion images: No segmental perfusion defects are present. There is minimal heterogeneity present bilaterally. There is mild blunting of the right costophrenic angle, best visualized on the VILLATORO and LPO views. No additional focal anatomic appearing perfusion defects are present. The cardiac silhouette is mildly dilated. The contemporaneous chest radiographs show bilateral small pleural effusions and pulmonary vascular congestion and cardiomegaly. NM/NM pul perfusion IMPRESSION: Very low probability of pulmonary embolism. Dictated By: Kameron Bruce MD Signed By: Electronically signed by Kameron Bruce MD 03/28/22 1601 ECG Data Attestation: I personally reviewed and interpreted this ECG as follows: ECG interpretation date: 03/28/22 ECG interpretation time: 10:03 Prior ECG tracings: available for review Interpretation: Vent. Rate: 111 BPM ? ? Atrial Rate: 111 BPM P-R Int: 152 ms? QRS Dur: 082 ms QT Int: 328 ms ? ? ? P-R-T Axes: 058 065 042 degrees QTc Int: 446 ms ? Sinus tachycardia Otherwise normal ECG When compared with ECG of 17-AUG-2020 13:58 No significant change was found Electronically Signed By:MILTON HAZEL Dictated By: Milton Hazel MD Signed By: Electronically signed by Milton Hazel MD 03/28/22 1506 Critical Care Time Critical Care Time Critical Care Time: Yes Total Critical Care Time: 30 Attestation: I spent 30 minutes of Critical Care Time with this patient. This does not include time spent on separately reported billable procedures. Discharge Plan Discharge Clinical Impression: COPD (chronic obstructive pulmonary disease), CHF exacerbation Patient Disposition: Admitted As Inpatient Prescriptions: No Action atorvastatin 80 mg tablet 80 mg PO DAILY 90 Days Qty: 90 3RF furosemide 20 mg tablet 20 mg PO DAILY 90 Days Qty: 90 3RF lidocaine 5 % adhesive patch,medicated 1 patch topical DAILY 30 Days Qty: 30 1RF Rx Instructions: leave on most painful area for up to 12 hrs aspirin 81 mg tablet,chewable 81 mg PO DAILY 30 Days Qty: 30 11RF lisinopril 10 mg tablet 10 mg PO DAILY 90 Days Qty: 90 0RF albuterol sulfate 2.5 mg /3 mL (0.083 %) solution for nebulization 2.5 mg inhalation Q6H PRN (Reason: bronchospasm) 30 Days Qty: 360 0RF montelukast 10 mg tablet 10 mg PO DAILY 90 Days Qty: 90 3RF cholecalciferol (vitamin D3) 25 mcg (1,000 unit) tablet 25 mcg PO DAILY 90 Days Qty: 90 3RF albuterol sulfate 90 mcg/actuation HFA aerosol inhaler 1 puff PO Q6H 30 Days Qty: 8.5 2RF metformin 500 mg tablet extended release 24 hr 1,000 mg PO BEDTIME 90 Days Qty: 180 3RF diphenhydramine HCl [Banophen] 25 mg capsule 25 mg PO TID PRN (Reason: for allergies) 30 Days Qty: 90 1RF fluticasone propion-salmeterol 250-50 mcg/dose blister with device inhalation 0RF (DME) lancets 30 gauge misc See Rx Instructions ea topical BID Qty: 100 0RF Rx Instructions: As directed alcohol swabs Pads, Medicated 0 pad topical 0RF (DME) FreeStyle Lite Strips Strip See Rx Instructions strip Not Applicable BID Qty: 10 0RF Rx Instructions: As directed (DME) blood-glucose meter Kit See Rx Instructions ea .ROUTE .MEDSUPPLY Qty: 1 0RF Rx Instructions: As directed (DME) lancing device Misc See Rx Instructions ea topical .MEDSUPPLY Qty: 1 0RF Rx Instructions: As directed (DME) FreeStyle Control Solution See Rx Instructions ea .ROUTE .MEDSULY Qty: 1 0RF Rx Instructions: As directed Print Language: [place]
[2022-03-28] MEDS: Albuterol/Iprat 2.5/0.5MG 3 ML AMPUL.NEB INHALE (10:29)
[2022-03-28] MEDS: dexAMETHasone sod phosphate 10 MG/ML VIAL IVPUSH (10:41)
[2022-03-28 10:59] LABS: COVID-19 Test Positive (Negative); IDNOW Serial# 16C4AD1C
[2022-03-28 11:19] LABS: IDNOW Serial# 9DB6401D; Influenza A Negative (Negative); Influenza B2 Negative (Negative)
[2022-03-28 11:24] LABS: MANUAL DIFF FLAG NO
[2022-03-28 11:27] LABS: Venous Blood Gas Refer to POC result
[2022-03-28 11:27] LABS: Basophils Percent Auto 0.4 % (0-2); Eosinophils Percent Auto 0.5 % (0-4); Hemoglobin 9.1 g/dl (12.0-16.0); Imm Gran Abs Auto 0.08 X10*3/uL (0.00-0.03); Lymphocytes Absolute Auto 1.6 X10*3/uL (1.2-4.9); Lymphocytes Percent Auto 19.8 % (20-40); Mean Corpuscular HGB Conc 31.4 g/dl (31.0-35.0); Mean Corpuscular Hemoglobin 29.1 pg (27.0-33.0); Mean Corpuscular Volume 92.7 fL (80.0-98.0); Mean Platelet Volume 9.2 fL (9.4-12.3); Monocytes Absolute Auto 0.4 X10*3/uL (0.1-1.2); Monocytes Percent Auto 5.4 % (2-11); Neutrophils Percent Auto 72.9 % (45-73); Platelet Count 367 X10*3/uL (160-400); Red Blood Count 3.13 X10*6/uL (4.20-5.50); Red Cell Distribution Width 12.6 % (11.0-16.0); White Blood Count 8.2 X10*3/uL (4.8-10.8)
[2022-03-28 11:28] LABS: VBG Base Excess -2.5 mmol/L; VBG HCO3 22 mmol/L (22-26); VBG pCO2 41 mmHg; VBG pH 7.35 (7.32-7.43); VBG pO2 38 mmHg
[2022-03-28 11:33] LABS: Prothrombin Time 11.5 SEC (9.9-13.0)
[2022-03-28 11:35] LABS: D Dimer High Sensitivity 932 NG/ML
[2022-03-28 11:36] LABS: Partial Thromboplastin Time 30.5 SEC (24.1-38.0)
[2022-03-28 11:39] LABS: Lactic Acid 1.6 mmol/L (0.5-2.0)
[2022-03-28 11:46] LABS: Alanine Aminotransferase 19 U/L (0-31); Albumin Level 3.7 g/dL (3.5-5.0); Alkaline Phosphatase 69 U/L (39-117); Anion Gap 12 (12-20); Aspartate Amino Transferase 13 U/L (5-31); Bilirubin Total 0.2 mg/dL (0.0-1.0); Blood Urea Nitrogen 34 mg/dL (9-16); Calcium 9.2 mg/dL (8.4-10.2); Carbon Dioxide 24 mmol/L (22-29); Chloride 107 mmol/L (96-108); Creatinine Clr Calc Pharmacy 24.2; Estimated Glomerular Filt Rate 31; Glucose Random 144 mg/dL (60-115); Magnesium 1.5 mg/dL (1.6-2.6); Potassium 4.6 mmol/L (3.3-5.1); Sodium 138 mmol/L (135-145); Total Protein 6.2 g/dL (6.5-8.0)
[2022-03-28 11:48] LABS: B Type Natriuretic Peptide 662 pg/mL (<100); Troponin-I High Sensitivity 31.4 ng/L (<3.5-17.0)
[2022-03-28] MEDS: Magnesium Sulfate/H2O 2 GM/50 ML PIGGYBACK IV (12:06)
[2022-03-28 14:49] LABS: Troponin-I High Sensitivity 41.3 ng/L (<3.5-17.0)
--- NOTE | 2022-03-28 15:42 | PC.NURSE ---
pt a&ox3, tachycardic, dyspnea - RR 29-35, some labored resp effort noted, O2 @ 93% RA. pt denies any pain at this time, c/o sob. no new orders at this time.
[2022-03-28] MEDS: Furosemide 40 MG/4 ML VIAL IVPUSH (16:20)
--- NOTE | 2022-03-28 16:24 | PC.NURSE ---
medicated per provider order.
--- NOTE | 2022-03-28 17:04 | P.HPHOSP_ITS ---
History of Present Illness Date of Service: 03/28/22 Chief Complaint: shortness of breath a 76 years old lady with PMH of CHF, COPD, diabetes, HTN, CKD among others who presents to the hospital complaining of worsening shortness of breath for the last 2 days. The patient reported that she got COVID positive more than 10 days ago and has been feeling of since then with increased weakness but for the last 2 days she has been feeling more short of breath associated with dyspnea on exertion with no fever, chills, chest pain, nausea, vomiting, change in bowel habit or urinary symptoms. The patient reporting that she has been eating fairly okay but less than normal. Had the been taking her medications until she ran out of her nebulizer 2 days ago. In the emergency she was found to have elevated BNP with associated CXR showing increased markings and mild pleural effusions. Admitted for further evaluation and treatment. Review of Systems Review of Systems: No fever, chills But reports generalized weakness No chest pain, palpitation increase shortness of breath and dyspnea on exertion No abdominal pain, nausea or vomiting No urinary symptoms No any rash or wounds [facility] Medical History Anemia, normocytic normochromic Anxiety Asthma Back pain CHF (congestive heart failure) COPD (chronic obstructive pulmonary disease) Depression Diabetes mellitus Diabetes mellitus, type 2 Essential hypertension Hypertension Hypovitaminosis D Left elbow pain Leg weakness Obesity (BMI 30-39.9) Obstructive sleep apnea syndrome Polyuria Pure hypercholesterolemia Renal insufficiency Tachycardia Wheelchair bound Family History Father Cancer Mother Diabetes Daughter Myocardial infarction Surgical History H/O: hysterectomy History of tubal ligation Social History Housing: Apartment Alcohol intake: never Patient Tobacco Use Status: Never used Tobacco e-Cigarette/Vaping Use: Never Used Second Hand Smoke Exposure: No Advance Directives: Yes Advance Directives Information Provided: Yes Advance Directives on File: No Advance Directives Date on File: 11/09/00 service: No Current occupational status: disabled Cognitive needs: Yes Hearing needs: No Vision needs: No Meds Allergies Allergy/AdvReac Type Severity Reaction Status Date / Time fish derived [FISH] Allergy Mild RASH, Verified 03/28/22 09:22 ITCHY, SWELLING linagliptin [Tradjenta] AdvReac Mild rash Verified 03/28/22 09:22 Active Medications: Current Medications Pharmacy Consult (Consult Rx Perform Med Rec) 1 each MISCELLANE ONCE PRN PRN Reason: Consult order Home Medications Medication Instructions Recorded Confirmed Last Taken Type blood glucose control high and low #1 01/31/21 03/17/22 Unknown History solution blood sugar diagnostic #10 01/31/21 03/17/22 Unknown History blood-glucose meter #1 01/31/21 03/17/22 Unknown History lancets 30 gauge #100 01/31/21 03/17/22 Unknown History lancing device #1 01/31/21 03/17/22 Unknown History atorvastatin 80 mg tablet 80 mg PO BEDTIME 03/28/22 03/28/22 03/27/22 History linagliptin 5 mg tablet (Tradjenta) 1 tab PO DAILY 03/28/22 03/28/22 03/28/22 History trazodone 50 mg tablet 1 tab PO BEDTIME 03/28/22 03/28/22 03/27/22 History Physical Exam Vital Signs and Narrative: Vital Signs: Last Vital Signs Temp 97.8 F 03/28/22 11:17 Pulse 124 H 03/28/22 15:41 Resp 32 H 03/28/22 15:41 BP 162/85 H 03/28/22 15:41 Pulse Ox 98 03/28/22 15:51 BMI result Body Mass Index 30.2 Const: Other: Constitutional : Alert, oriented, not in distress Neck : Normal inspection, Supple Cardiovascular : RRR, no JVP, trace bilateral lower extremity edema Respiratory : fair bilateral air entry, basal fine bilateral crackles, scattered wheezes, on oxygen supplement Gastrointestinal: soft, lax, Normal bowel sounds, Non tender Skin : Warm, Dry Neurological : Alert & oriented x3, No focal deficit , CN 2-12 within normal Results Labs CBC and Chem 7: 03/28/22 11:17 03/28/22 11:17 Labs: Laboratory Results - last 24 hr 03/28/22 03/28/22 03/28/22 10:26 10:26 11:17 MCV 92.7 MCH 29.1 MCHC 31.4 RDW 12.6 Plt Count 367 MPV 9.2 L Immature Gran % (Auto) 1.0 H Neut % (Auto) 72.9 Lymph % (Auto) 19.[address] [facility] % (Auto) 5.4 Eos % (Auto) 0.5 Baso % (Auto) 0.4 Lymph # (Auto) 1.6 [facility] # (Auto) 0.4 Eos # (Auto) 0.0 Baso # (Auto) 0.0 Abs Immat Gran (auto) 0.08 H Absolute Neuts (auto) 6.0 Absolute Nucleated RBC 0.000 Nucleated RBC % (auto) 0.0 PT INR APTT D-Dimer High Sensitivty VBG pH VBG pCO2 VBG pO2 VBG HCO3 VBG O2 Saturation VBG Base Excess Anion Gap Estim Creat Clear Calc Estimated GFR Random Glucose Lactic Acid Calcium Magnesium Total Bilirubin AST ALT Alkaline Phosphatase Troponin I High Sens B-Natriuretic Peptide Total Protein Albumin COVID-19 (RUDDY) Positive A COVID-19 Clin Com See Note Influenza Type A (NAMRATA) Negative Influenza Type B (NAMRATA) Negative Influenza A & B Note See Note 03/28/22 03/28/22 03/28/22 11:17 11:17 11:17 MCV MCH MCHC RDW Plt Count MPV Immature Gran % (Auto) Neut % (Auto) Lymph % (Auto) [facility] % (Auto) Eos % (Auto) Baso % (Auto) Lymph # (Auto) [facility] # (Auto) Eos # (Auto) Baso # (Auto) Abs Immat Gran (auto) Absolute Neuts (auto) Absolute Nucleated RBC Nucleated RBC % (auto) PT 11.5 INR 1.0 APTT 30.5 D-Dimer High Sensitivty 932 VBG pH VBG pCO2 VBG pO2 VBG HCO3 VBG O2 Saturation VBG Base Excess Anion Gap 12 Estim Creat Clear Calc 24.2 Estimated GFR 31 Random Glucose 144 H Lactic Acid 1.6 Calcium 9.2 Magnesium 1.5 L Total Bilirubin 0.2 AST 13 ALT 19 Alkaline Phosphatase 69 Troponin I High Sens B-Natriuretic Peptide Total Protein 6.2 L Albumin 3.7 COVID-19 (RUDDY) COVID-19 Clin Com Influenza Type A (NAMRATA) Influenza Type B (NAMRATA) Influenza A & B Note 03/28/22 03/28/22 03/28/22 11:18 11:22 14:16 MCV MCH MCHC RDW Plt Count MPV Immature Gran % (Auto) Neut % (Auto) Lymph % (Auto) [facility] % (Auto) Eos % (Auto) Baso % (Auto) Lymph # (Auto) [facility] # (Auto) Eos # (Auto) Baso # (Auto) Abs Immat Gran (auto) Absolute Neuts (auto) Absolute Nucleated RBC Nucleated RBC % (auto) PT INR APTT D-Dimer High Sensitivty VBG pH 7.35 VBG pCO2 41 VBG pO2 38 VBG HCO3 22 VBG O2 Saturation 54.0 VBG Base Excess -2.5 Anion Gap Estim Creat Clear Calc Estimated GFR Random Glucose Lactic Acid Calcium Magnesium Total Bilirubin AST ALT Alkaline Phosphatase Troponin I High Sens 31.4 H 41.3 H B-Natriuretic Peptide 662 H Total Protein Albumin COVID-19 (RUDDY) COVID-19 Clin Com Influenza Type A (NAMRATA) Influenza Type B (NAMRATA) Influenza A & B Note Imaging Radiologist's Impressions: Impressions Chest X-Ray 03/28/22 11:45 IMPRESSION: Mild CHF and very small bilateral pleural effusions. Pulmonary Perfusion Imaging 03/28/22 15:25 IMPRESSION: Very low probability of pulmonary embolism. Assessment and Plan (1) CHF exacerbation: Status: Acute (2) COPD (chronic obstructive pulmonary disease): Status: Acute (3) COVID-19 virus infection: Status: Acute Plan a 76 years old lady with PMH of CHF, COPD, diabetes, HTN, CKD among others who presents to the hospital complaining of worsening shortness of breath for the last 2 days. acute on chronic diastolic CHF exacerbation Elevated BNP above 600 CXR showing increased lung markings and effusions start Lasix enter intake and output COPD exacerbation 2/2 COVID-19 infection Not a candidate for any viral treatment at this point Start steroids IV Bronchodilators Wean oxygen supplement as tolerated CKD stage 4 Monitor BUN and creatinine Hypomagnesemia Magnesium of 1.5, replacement given to monitor HLD next Lyme continue statin Type 2 diabetes Hold oral medications SSI, diabetic diet DVT PPX Lovenox Patient will need at least 2 overnight hospital stay for treatment of CHF exacerbation and COPD monitoring her kidney function to decrease the chance of possible decompensation in to hypoxic respiratory failure. Quality Stroke Does the patient have a stroke diagnosis?: No VTE Prior VTE?: No VTE Risk Level:: Medical - moderate - high VTE Device Contraindication: Treatment Not Indicated VTE Drug Contraindication: N/A - Med Ordered
--- NOTE | 2022-03-28 17:07 | PHA.MEDREC ---
Pharmacy Consult ? Medication Reconciliation Pharmacy has completed the medication reconciliation. Patient uses [facility]. No longer on lisinopril. Thanks Jay
[2022-03-28] MEDS: Enoxaparin Sodium 30 MG/0.3 ML SYRINGE SUBCUT (17:51)
--- NOTE | 2022-03-28 17:54 | PC.NURSE ---
pt medicated per provider order, improved resp effort visualized and reported by pt.
[2022-03-28 19:44] LABS: Glucose, Whole Blood 153 mg/dL (60-115)
[2022-03-28] MEDS: methylPREDNISolone Sod Succ 40 MG/ML VIAL IVPUSH (19:50)
[2022-03-28] MEDS: traZODone HCL 50 MG TABLET PO (19:50)
[2022-03-28] MEDS: Atorvastatin Calcium 80 MG TABLET PO (19:50)
[2022-03-28] MEDS: Insulin Lispro 100 UNIT/ML 3 ML VIAL SUBCUT (19:51)
[2022-03-29 04:45] VITALS: BP 146/78; PULSE 94; RESP 19; O2SAT 100
[2022-03-29 07:42] LABS: Mean Corpuscular HGB Conc 32.1 g/dl (31.0-35.0); Mean Corpuscular Hemoglobin 29.7 pg (27.0-33.0); Mean Corpuscular Volume 92.4 fL (80.0-98.0); Mean Platelet Volume 9.9 fL (9.4-12.3); Platelet Count 349 X10*3/uL (160-400); Red Blood Count 3.03 X10*6/uL (4.20-5.50); Red Cell Distribution Width 12.3 % (11.0-16.0)
[2022-03-29 07:46] LABS: Glucose, Whole Blood 130 mg/dL (60-115)
[2022-03-29 08:03] LABS: Anion Gap 16 (12-20); Blood Urea Nitrogen 41 mg/dL (9-16); Calcium 9.4 mg/dL (8.4-10.2); Carbon Dioxide 22 mmol/L (22-29); Chloride 105 mmol/L (96-108); Estimated Glomerular Filt Rate 32; Glucose Random 145 mg/dL (60-115); Potassium 4.9 mmol/L (3.3-5.1); Sodium 138 mmol/L (135-145)
[2022-03-29 08:09] LABS: B Type Natriuretic Peptide 1165 pg/mL (<100)
[2022-03-29 08:54] LABS: Magnesium 1.9 mg/dL (1.6-2.6)
[2022-03-29 09:19] VITALS: BP 146/78; PULSE 94; O2SAT 100
[2022-03-29] MEDS: Cholecalciferol (Vitamin D3) 25 MCG TABLET PO (09:21)
[2022-03-29] MEDS: methylPREDNISolone Sod Succ 40 MG/ML VIAL IVPUSH ×2 (09:21→22:17)
[2022-03-29] MEDS: Furosemide 40 MG/4 ML VIAL IVPUSH ×2 (09:21→18:04)
[2022-03-29] MEDS: Aspirin 81 MG TAB.CHEW PO (09:21)
[2022-03-29 10:00] VITALS: BP 134/63; PULSE 103; RESP 28; TEMP 36.4; O2SAT 100
--- NOTE | 2022-03-29 12:15 | HO.PM.IMPN ---
Subjective Subjective Date of Service: 03/29/22 Interval History: seen and evaluated Feels mild improvement Still requiring oxygen supplement BNP increased overnight No other overnight events Review of Systems No fever, chills But reports generalized weakness No chest pain, palpitation still having shortness of breath and dyspnea on exertion No abdominal pain, nausea or vomiting No urinary symptoms No any rash or wounds Physical Exam Vital Signs: Vital Signs: Last Vital Signs Temp 97.5 F 03/29/22 10:00 Pulse 103 H 03/29/22 10:00 Resp 28 H 03/29/22 10:00 BP 134/63 03/29/22 10:00 Pulse Ox 100 03/29/22 10:00 BMI result Body Mass Index 30.2 Const: Other: Constitutional : Alert, oriented, not in distress Neck : Normal inspection, Supple Cardiovascular : RRR, no JVP, trace bilateral lower extremity edema Respiratory : fair bilateral air entry, basal fine bilateral crackles, scattered wheezes, on oxygen supplement Gastrointestinal: soft, lax, Normal bowel sounds, Non tender Skin : Warm, Dry Neurological : Alert & oriented x3, No focal deficit , CN 2-12 within normal Objective Data Active Medications Acetaminophen (Acetaminophen 325 Mg Tablet) 650 mg PO Q6H PRN PRN Reason: Pain, Mild (Pain Scale 1-3) Albuterol Sulfate (Albuterol Sulfate 90 Mcg 8 Gm Inhaler) 4 puff INHALE RQ4H WHILE AWAKE [facility] Last Admin: 03/29/22 11:38 Dose: Not Given Documented by: MARIN Non-Admin Reason: Med Not Available Albuterol Sulfate (Albuterol Sulfate (0.083%) 2.5 Mg/3 Ml Vial.Neb) 2.5 mg INHALE Q6H PRN PRN Reason: bronchospasm Aspirin (Aspirin 81 Mg Tab.Chew) 81 mg PO DAILY [facility] Last Admin: 03/29/22 09:21 Dose: 81 mg Documented by: KURT Atorvastatin Calcium (Atorvastatin Calcium 80 Mg Tablet) 80 mg PO BEDTIME [facility] Last Admin: 03/28/22 19:50 Dose: 80 mg Documented by: PHI Diphenhydramine HCl (Diphenhydramine Hcl 25 Mg Tablet) 25 mg PO TID PRN PRN Reason: for allergies Enoxaparin Sodium (Enoxaparin Sodium 30 Mg/0.3 Ml Syringe) 30 mg SUBCUT Q24H [facility] Last Admin: 03/28/22 17:51 Dose: 30 mg Documented by: NUBIA Furosemide (Furosemide 40 Mg/4 Ml Vial) 40 mg IVPUSH BID@0900,1800 [facility]; Protocol Last Admin: 03/29/22 11:00 Dose: Not Given Documented by: KURT Non-Admin Reason: Duplicate Order Insulin Human Lispro (Insulin Lispro 100 Unit/Ml 3 Ml Vial) 0 unit SUBCUT QIDACHS [facility]; Protocol Last Admin: 03/29/22 09:29 Dose: Not Given Documented by: KURT Non-Admin Reason: No Insulin Coverage Methylprednisolone Sodium Succinate (Methylprednisolone Sod Succ 40 Mg/Ml Vial) 40 mg IVPUSH Q12H [facility] Last Admin: 03/29/22 09:21 Dose: 40 mg Documented by: KURT Montelukast Sodium (Montelukast Sodium 10 Mg Tablet) 10 mg PO BEDTIME VANESSA Ondansetron HCl (Ondansetron Hcl 4 Mg/2 Ml Vial) 4 mg IVPUSH Q8H PRN PRN Reason: Nausea and Vomiting Pharmacy Consult (Consult Rx Perform Med Rec) 1 each MISCELLANE ONCE PRN PRN Reason: Consult order Trazodone HCl (Trazodone Hcl 50 Mg Tablet) 50 mg PO BEDTIME [facility] Last Admin: 03/28/22 19:50 Dose: 50 mg Documented by: PHI Vitamin D (Cholecalciferol (Vitamin D3) 25 Mcg Tablet) 25 mcg PO DAILY [facility] Last Admin: 03/29/22 09:21 Dose: 25 mcg Documented by: KURT Labs CBC & Chem 7: 03/29/22 07:05 03/29/22 07:05 Labs: Laboratory Results - last 24 hr 03/28/22 03/28/22 03/29/22 14:16 19:37 07:05 MCV MCH MCHC RDW Plt Count MPV Absolute Nucleated RBC Nucleated RBC % (auto) Anion Gap Estim Creat Clear Calc Estimated GFR POC Glucose 153 H Random Glucose Calcium Magnesium Troponin I High Sens 41.3 H B-Natriuretic Peptide 1165 H 03/29/22 03/29/22 03/29/22 07:05 07:05 07:39 MCV 92.4 MCH 29.7 MCHC 32.1 RDW 12.3 Plt Count 349 MPV 9.9 Absolute Nucleated RBC 0.000 Nucleated RBC % (auto) 0.0 Anion Gap 16 Estim Creat Clear Calc 25.0 Estimated GFR 32 POC Glucose 130 H Random Glucose 145 H Calcium 9.4 Magnesium 1.9 Troponin I High Sens B-Natriuretic Peptide Assessment and Plan (1) COVID-19 virus infection: Status: Acute (2) CHF exacerbation: Status: Acute (3) COPD (chronic obstructive pulmonary disease): Status: Acute Plan a 76 years old lady with PMH of CHF, COPD, diabetes, HTN, CKD among others who presents to the hospital complaining of worsening shortness of breath for the last 2 days. acute on chronic diastolic CHF exacerbation increased BNP above 1000 CXR showing increased lung markings and effusions increase Lasix to 40 mg b.i.d. enter intake and output COPD exacerbation 2/2 COVID-19 infection Not a candidate for any viral treatment at this point continue steroids IV Bronchodilators Wean oxygen supplement as tolerated CKD stage 4 Monitor BUN and creatinine Hypomagnesemia Magnesium improved to 1.9 to monitor HLD continue statin Type 2 diabetes Hold oral medications SSI, diabetic diet DVT PPX Lovenox Patient will need to stay overnight in hospital for treatment of CHF exacerbation and COPD monitoring her kidney function to decrease the chance of possible decompensation in to hypoxic respiratory failure. Quality Stroke Does the patient have a stroke diagnosis?: No VTE Prior VTE?: No VTE Risk Level:: Medical - moderate - high VTE Device Contraindication: Treatment Not Indicated VTE Drug Contraindication: N/A - Med Ordered
--- NOTE | 2022-03-29 13:22 | PC.NURSE ---
pt alert and oriented, vss, denies pain, pt satting 92-94% on r/a, she denies sob/headache/dizziness. non-productive cough noted. pt assisted to commode, lg bm. meds given as documented, no complaints.
[2022-03-29 13:37] LABS: Glucose, Whole Blood 142 mg/dL (60-115)
[2022-03-29 16:49] VITALS: BP 127/56; PULSE 104; RESP 20; TEMP 36.5
[2022-03-29 17:09] LABS: Glucose, Whole Blood 225 mg/dL (60-115)
[2022-03-29] MEDS: Enoxaparin Sodium 30 MG/0.3 ML SYRINGE SUBCUT (18:03)
[2022-03-29] MEDS: Insulin Lispro 100 UNIT/ML 3 ML VIAL SUBCUT (18:03)
--- NOTE | 2022-03-29 18:38 | PC.NURSE ---
report given to GISELE Recinos pt will be transferred to room 474
[2022-03-29] MEDS: Albuterol Sulfate 90 MCG 8 GM INHALER 4 PUFF INHALE (19:30)
[2022-03-29 19:31] VITALS: PULSE 106; RESP 18; O2SAT 98
[2022-03-29 21:47] VITALS: BP 133/68; PULSE 107; RESP 20; TEMP 36.7; O2SAT 98
[2022-03-29 21:54] LABS: Glucose, Whole Blood 155 mg/dL (60-115)
[2022-03-29] MEDS: Atorvastatin Calcium 80 MG TABLET PO (22:17)
[2022-03-29] MEDS: traZODone HCL 50 MG TABLET PO (22:17)
[2022-03-29] MEDS: Montelukast Sodium 10 MG TABLET PO (22:17)
[2022-03-30 03:22] VITALS: BP 138/69; PULSE 100; RESP 18; TEMP 36.6; O2SAT 96
[2022-03-30 06:57] LABS: Anion Gap 14 (12-20); Blood Urea Nitrogen 57 mg/dL (9-16); Calcium 9.1 mg/dL (8.4-10.2); Carbon Dioxide 23 mmol/L (22-29); Chloride 102 mmol/L (96-108); Creatinine Clr Calc Pharmacy 20.6; Estimated Glomerular Filt Rate 25; Glucose Random 196 mg/dL (60-115); Potassium 5.2 mmol/L (3.3-5.1); Sodium 134 mmol/L (135-145)
[2022-03-30 07:07] LABS: B Type Natriuretic Peptide 549 pg/mL (<100)
[2022-03-30 07:46] VITALS: BP 145/67; PULSE 89; RESP 18; TEMP 36.3; O2SAT 95
[2022-03-30 08:02] LABS: Glucose, Whole Blood 160 mg/dL (60-115)
[2022-03-30] MEDS: Aspirin 81 MG TAB.CHEW PO (09:09)
[2022-03-30] MEDS: Sodium Zirconium Cyclosilicate 10 GM POWD.PACK PO (09:09)
[2022-03-30] MEDS: Cholecalciferol (Vitamin D3) 25 MCG TABLET PO (09:10)
[2022-03-30] MEDS: Insulin Lispro 100 UNIT/ML 3 ML VIAL SUBCUT ×4 (09:14→21:37)
--- NOTE | 2022-03-30 09:14 | MHC.CM.PN ---
Patient is Covid (+) and unreachable by phone at neither room extension [phone] nor cell @ [phone]; CM spoke with Son/HCP/Jack @ [phone] and addressed IMM with him (original will be mailed certified letter to Jack and a copy has been placed on the chart). Patient lives alone in an apartment and she receives services from [facility], including a [employer] 8 hours/day. PT rec home with services; CM has initiated and will follow for dc planning. Patient has received Covid vax X3.Patient has been at [email or web address] [place] in the past for STR and was pleased with her stay there. Patient has a cane, walker and w/c and is about to get a motorized scooter. PCP is DR. Lisa Tadeo.
[2022-03-30] MEDS: methylPREDNISolone Sod Succ 40 MG/ML VIAL IVPUSH ×2 (09:15→21:37)
[2022-03-30 11:20] VITALS: BP 151/69; PULSE 90; RESP 18; TEMP 36.9; O2SAT 98
[2022-03-30 11:40] LABS: Glucose, Whole Blood 202 mg/dL (60-115)
--- NOTE | 2022-03-30 12:46 | HO.PM.IMPN ---
Subjective Subjective Date of Service: 03/30/22 Interval History: seen and evaluated Feels mild improvement Still requiring oxygen supplement BNP improved to 540 overnight Creatinine and potassium increased No other overnight events Review of Systems No fever, chills But reports generalized weakness No chest pain, palpitation improving shortness of breath and dyspnea on exertion No abdominal pain, nausea or vomiting No urinary symptoms No any rash or wounds Physical Exam Vital Signs: Vital Signs: Last Vital Signs Temp 98.4 F 03/30/22 11:20 Pulse 90 03/30/22 11:20 Resp 18 03/30/22 11:20 BP 151/69 H 03/30/22 11:20 Pulse Ox 98 03/30/22 11:20 BMI result Body Mass Index 30.2 Const: Other: Constitutional : Alert, oriented, not in distress Neck : Normal inspection, Supple Cardiovascular : RRR, no JVP, trace bilateral lower extremity edema Respiratory : fair bilateral air entry, basal fine bilateral crackles, scattered wheezes, on oxygen supplement Gastrointestinal: soft, lax, Normal bowel sounds, Non tender Skin : Warm, Dry Neurological : Alert & oriented x3, No focal deficit , CN 2-12 within normal Objective Data Active Medications Acetaminophen (Acetaminophen 325 Mg Tablet) 650 mg PO Q6H PRN PRN Reason: Pain, Mild (Pain Scale 1-3) Albuterol Sulfate (Albuterol Sulfate 90 Mcg 8 Gm Inhaler) 4 puff INHALE RQ4H WHILE AWAKE [facility] Last Admin: 03/30/22 10:43 Dose: Not Given Documented by: MATHIEU Non-Admin Reason: Med Not Available Albuterol Sulfate (Albuterol Sulfate (0.083%) 2.5 Mg/3 Ml Vial.Neb) 2.5 mg INHALE Q6H PRN PRN Reason: bronchospasm Aspirin (Aspirin 81 Mg Tab.Chew) 81 mg PO DAILY [facility] Last Admin: 03/30/22 09:09 Dose: 81 mg Documented by: VIVEK Atorvastatin Calcium (Atorvastatin Calcium 80 Mg Tablet) 80 mg PO BEDTIME [facility] Last Admin: 03/29/22 22:17 Dose: 80 mg Documented by: GARFIELD Diphenhydramine HCl (Diphenhydramine Hcl 25 Mg Tablet) 25 mg PO TID PRN PRN Reason: for allergies Enoxaparin Sodium (Enoxaparin Sodium 30 Mg/0.3 Ml Syringe) 30 mg SUBCUT Q24H [facility] Last Admin: 03/29/22 18:03 Dose: 30 mg Documented by: KURT Insulin Human Lispro (Insulin Lispro 100 Unit/Ml 3 Ml Vial) 0 unit SUBCUT QIDACHS [facility]; Protocol Last Admin: 03/30/22 12:16 Dose: 4 unit Documented by: VIVEK Methylprednisolone Sodium Succinate (Methylprednisolone Sod Succ 40 Mg/Ml Vial) 40 mg IVPUSH Q12H [facility] Last Admin: 03/30/22 09:15 Dose: 40 mg Documented by: VIVEK Montelukast Sodium (Montelukast Sodium 10 Mg Tablet) 10 mg PO BEDTIME [facility] Last Admin: 03/29/22 22:17 Dose: 10 mg Documented by: GARFIELD Ondansetron HCl (Ondansetron Hcl 4 Mg/2 Ml Vial) 4 mg IVPUSH Q8H PRN PRN Reason: Nausea and Vomiting Pharmacy Consult (Consult Rx Perform Med Rec) 1 each MISCELLANE ONCE PRN PRN Reason: Consult order Trazodone HCl (Trazodone Hcl 50 Mg Tablet) 50 mg PO BEDTIME [facility] Last Admin: 03/29/22 22:17 Dose: 50 mg Documented by: GARFIELD Vitamin D (Cholecalciferol (Vitamin D3) 25 Mcg Tablet) 25 mcg PO DAILY [facility] Last Admin: 03/30/22 09:10 Dose: 25 mcg Documented by: VIVEK Labs CBC & Chem 7: 03/29/22 07:05 03/30/22 05:56 Labs: Laboratory Results - last 24 hr 03/28/22 03/29/22 03/29/22 11:22 13:31 17:04 VBG pH 7.35 VBG pCO2 41 VBG pO2 38 VBG HCO3 22 VBG O2 Saturation 54.0 VBG Base Excess -2.5 Anion Gap Estim Creat Clear Calc Estimated GFR POC Glucose 142 H 225 H Random Glucose Calcium B-Natriuretic Peptide 03/29/22 03/30/22 03/30/22 21:51 05:56 05:56 VBG pH VBG pCO2 VBG pO2 VBG HCO3 VBG O2 Saturation VBG Base Excess Anion Gap 14 Estim Creat Clear Calc 20.6 Estimated GFR 25 POC Glucose 155 H Random Glucose 196 H Calcium 9.1 B-Natriuretic Peptide 549 H 03/30/22 03/30/22 07:46 11:35 VBG pH VBG pCO2 VBG pO2 VBG HCO3 VBG O2 Saturation VBG Base Excess Anion Gap Estim Creat Clear Calc Estimated GFR POC Glucose 160 H 202 H Random Glucose Calcium B-Natriuretic Peptide Microbiology Microbiology Results: Microbiology 03/28/22 11:17 Blood Culture - Preliminary Blood - Venous No growth after 24 hours. 03/28/22 11:17 Blood Culture - Preliminary Blood - Venous No growth after 24 hours. Assessment and Plan (1) COVID-19 virus infection: Status: Acute (2) CHF exacerbation: Status: Acute (3) Acute renal failure superimposed on stage 3 chronic kidney disease: Status: Acute Plan a 76 years old lady with PMH of CHF, COPD, diabetes, HTN, CKD among others who presents to the hospital complaining of worsening shortness of breath for the last 2 days. acute on chronic diastolic CHF exacerbation improved BNP to 500 feels better today hold Lasix for Mannie I enter intake and output Mannie I on CKD stage 3, hyperkalemia likely from Lasix usage Creatinine worsened 1.9 Creatinine high at 5.2 Give Kayexalate Hold nephrotoxic medications Monitor intake and output Follow BMP COPD exacerbation 2/ COVID-19 infection Not a candidate for any viral treatment at this point continue steroids IV Bronchodilators Wean oxygen supplement as tolerated CKD stage 4 Monitor BUN and creatinine Hypomagnesemia Magnesium improved to 1.9 to monitor HLD continue statin Type 2 diabetes Hold oral medications SSI, diabetic diet DVT PPX Lovenox Patient will need to stay overnight in hospital for treatment of CHF exacerbation and COPD monitoring her Worsening kidney function to decrease the chance of possible decompensation in to hypoxic respiratory failure and renal failure. Quality Stroke Does the patient have a stroke diagnosis?: No VTE Prior VTE?: No VTE Risk Level:: Medical - moderate - high VTE Device Contraindication: Treatment Not Indicated VTE Drug Contraindication: N/A - Med Ordered
[2022-03-30 13:40] LABS: Anion Gap 17 (12-20); Blood Urea Nitrogen 56 mg/dL (9-16); Calcium 8.8 mg/dL (8.4-10.2); Carbon Dioxide 20 mmol/L (22-29); Chloride 101 mmol/L (96-108); Creatinine Clr Calc Pharmacy 21.7; Estimated Glomerular Filt Rate 27; Glucose Random 236 mg/dL (60-115); Potassium 5.1 mmol/L (3.3-5.1); Sodium 133 mmol/L (135-145)
[2022-03-30 15:08] VITALS: BP 154/64; PULSE 105; RESP 20; TEMP 36.4; O2SAT 98
[2022-03-30] MEDS: Sodium Zirconium Cyclosilicate 5 GM POWD.PACK PO (15:52)
[2022-03-30 16:33] LABS: Glucose, Whole Blood 241 mg/dL (60-115)
[2022-03-30] MEDS: Enoxaparin Sodium 30 MG/0.3 ML SYRINGE SUBCUT (16:57)
[2022-03-30 19:09] VITALS: BP 151/65; PULSE 107; RESP 20; TEMP 36.9; O2SAT 98
[2022-03-30 20:47] LABS: Glucose, Whole Blood 247 mg/dL (60-115)
[2022-03-30] MEDS: traZODone HCL 50 MG TABLET PO (21:38)
[2022-03-30] MEDS: Atorvastatin Calcium 80 MG TABLET PO (21:38)
[2022-03-30] MEDS: Montelukast Sodium 10 MG TABLET PO (21:38)
[2022-03-30 23:17] VITALS: BP 142/75; PULSE 97; RESP 18; TEMP 36.4; O2SAT 96
[2022-03-31 03:00] VITALS: BP 156/82; PULSE 98; RESP 18; TEMP 36.5; O2SAT 98
[2022-03-31 07:32] LABS: Anion Gap 14 (12-20); Blood Urea Nitrogen 54 mg/dL (9-16); Calcium 9.2 mg/dL (8.4-10.2); Carbon Dioxide 23 mmol/L (22-29); Chloride 104 mmol/L (96-108); Creatinine Clr Calc Pharmacy 24.1; Estimated Glomerular Filt Rate 30; Glucose Random 184 mg/dL (60-115); Potassium 4.9 mmol/L (3.3-5.1); Sodium 136 mmol/L (135-145)
[2022-03-31 07:36] VITALS: BP 154/63; PULSE 98; RESP 18; TEMP 36.7; O2SAT 98
[2022-03-31] MEDS: Albuterol Sulfate 90 MCG 8 GM INHALER 4 PUFF INHALE ×2 (08:54→11:57)
[2022-03-31 09:00] VITALS: PULSE 67; RESP 20; O2SAT 95
[2022-03-31] MEDS: Aspirin 81 MG TAB.CHEW PO (10:01)
[2022-03-31] MEDS: Cholecalciferol (Vitamin D3) 25 MCG TABLET PO (10:01)
[2022-03-31] MEDS: Furosemide 40 MG TABLET PO (10:01)
[2022-03-31] MEDS: methylPREDNISolone Sod Succ 40 MG/ML VIAL IVPUSH (10:01)
--- NOTE | 2022-03-31 10:13 | P.CDIC_ITS ---
CDI Concurrent Query Documentation Clarification: PHYSICIAN'S DOCUMENTATION REQUEST Date of Query: 03/31/22 1013 Patient Name: Meena Good Admit Date: 03/28/22 Dear Doctor, A review of the medical record indicates additional documentation may be needed. Please review below and update the documentation accordingly. Clinical Indicators: Risk Factors/Clinical Indicators/Treatments PN: Diabetes Mellitus Type 2 POC glucose 202 247 Humalog SSI, Diabetic diet Please clarify the following regarding Diabetes Mellitus (DM): Specifics: * Hypoglycemia * Hyperglycemia * Uncontrolled, poorly controlled * No complications of DM * Other complication ? please specify * Unable to determine Use of terms such as suspected, likely, concern for, or probable (associated with a specific diagnosis that is being evaluated, monitored, or treated as if it exists) are acceptable and can be coded in the inpatient setting, when documented at the time of discharge. Thank you, Jewels Mari [facility], CDIS Extension: [phone] Please use your independent medical judgment in providing your response. THIS QUERY IS PART OF THE PERMANENT MEDICAL RECORD Provider Response: Other Other Diagnosis: type 2 diabetes with hyperglycemia
[2022-03-31 11:14] VITALS: BP 149/66; PULSE 99; RESP 18; TEMP 36.7; O2SAT 99
[2022-03-31 11:29] LABS: Glucose, Whole Blood 238 mg/dL (60-115)
[2022-03-31 11:42] VITALS: BP 149/66; PULSE 99; O2SAT 99
[2022-03-31 11:59] VITALS: PULSE 102; RESP 18; O2SAT 99
[2022-03-31] MEDS: Insulin Lispro 100 UNIT/ML 3 ML VIAL SUBCUT (12:14)
--- NOTE | 2022-03-31 12:39 | P.DS_ITS ---
DS: Providers Provider Date of Service: 03/31/22 Date of admission: 03/28/22 16:56 Primary care physician: Lisa Rojo MD DS: Diagnosis Discharge Diagnosis (1) COVID-19 virus infection: Status: Acute (2) CHF exacerbation: Status: Acute (3) Acute renal failure superimposed on stage 3 chronic kidney disease: Status: Acute (4) COPD (chronic obstructive pulmonary disease): Status: Acute DS: Summary Hospital Course Hospital Course: admission note HPI ?a 76 years old lady with PMH of CHF, COPD, diabetes, HTN, CKD among others who presents to the hospital complaining of worsening shortness of breath for the last 2 days.? The patient reported that she got COVID positive more than 10 days ago and has been feeling of since then with increased weakness but for the last 2 days she has been feeling more short of breath associated with dyspnea on exertion with no fever, chills, chest pain, nausea, vomiting, change in bowel habit or urinary symptoms. The patient reporting that she has been eating fairly okay but less than normal.? Had the been taking her medications until she ran out of her nebulizer 2 days ago. In the emergency she was found to have elevated BNP with associated CXR showing increased markings and mild pleural effusions.? Admitted for further evaluation and treatment. Hospital course The patient was admitted for evaluation of difficulty breathing. Treated for picture of CHF exacerbation with IV Lasix with good response as she was weaned down the oxygen supplement but developed mild worsening of kidney function With mild hyperkalemia that was monitored and followed with improvement back to baseline after holding the IV Lasix. She was also treated with bronchodilators and steroids for COPD exacerbation that was believed to be secondary to recent COVID-19 infection as the wheezes improved significantly and the patient was able to be taken off oxygen maintaining her O2 sat around 96%. to be discharged home on 3 more days of prednisone Advised to use her home nebulizer for the next 3 days around the clock To follow-up with PCP for further monitoring and adjustments of her heart failure medications. Time Spent with Patient Time attestation: Total time spent providing and/or coordinating discharge services: Discharge coordination time: Greater than 30 minutes Quality: Safe Use of Opioids Does Pt have an Active Cancer Diagnosis on the Problem List?: No Quality: Stroke Does the patient have a stroke diagnosis?: No Physical Exam Vital Signs: Vital Signs: Last Vital Signs Temp 98.1 F 03/31/22 11:14 Pulse 102 H 03/31/22 11:59 Resp 18 03/31/22 11:59 BP 149/66 H 03/31/22 11:42 Pulse Ox 99 03/31/22 11:42 BMI result Body Mass Index 30.2 Const: Other: Constitutional : Alert, oriented, not in distress Neck : Normal inspection, Supple Cardiovascular : RRR, no JVP, Nol lower extremity edema Respiratory : fair bilateral air entry, no crackles, clear with scattered wheezes, on room air Gastrointestinal: soft, lax, Normal bowel sounds, Non tender Skin : Warm, Dry Neurological : Alert & oriented x3, No focal deficit , CN 2-12 within normal DS: Data Data Completed and Pending Labs on day of discharge: Laboratory Results - last 24 hr 03/30/22 03/30/22 03/30/22 13:02 16:30 20:44 Sodium 133 L Potassium 5.1 Chloride 101 Carbon Dioxide 20 L Anion Gap 17 BUN 56 H Creatinine 1.82 H Estim Creat Clear Calc 21.7 Estimated GFR 27 POC Glucose 241 H 247 H Random Glucose 236 H Calcium 8.8 03/31/22 03/31/22 06:41 11:17 Sodium 136 Potassium 4.9 Chloride 104 Carbon Dioxide 23 Anion Gap 14 BUN 54 H Creatinine 1.64 H Estim Creat Clear Calc 24.1 Estimated GFR 30 POC Glucose 238 H Random Glucose 184 H Calcium 9.2 Preliminary micro results at discharge 03/28/22 11:17 Blood Culture - Preliminary Blood - Venous No growth after 48 hours. 03/28/22 11:17 Blood Culture - Preliminary Blood - Venous No growth after 48 hours. Discharge Plan Discharge Patient Disposition: Home Health Service Discharge Diagnosis: heart failure exacerbation COVID-19 infection kidney injury Referrals: [facility] [Other] - 1 Week Lisa Todd MD [Primary Care Provider] - 1 Week Discharge Medications: New prednisone 20 mg tablet 40 mg PO DAILY Qty: 6 0RF Continued furosemide 20 mg tablet 20 mg PO DAILY 90 Days Qty: 90 3RF aspirin 81 mg tablet,chewable 81 mg PO DAILY 30 Days Qty: 30 11RF montelukast 10 mg tablet 10 mg PO DAILY 90 Days Qty: 90 3RF cholecalciferol (vitamin D3) 25 mcg (1,000 unit) tablet 25 mcg PO DAILY 90 Days Qty: 90 3RF metformin 500 mg tablet extended release 24 hr 1,000 mg PO BEDTIME 90 Days Qty: 180 3RF diphenhydramine HCl [Banophen] 25 mg capsule 25 mg PO TID PRN (Reason: for allergies) 30 Days Qty: 90 1RF atorvastatin 80 mg tablet 80 mg PO BEDTIME 0RF trazodone 50 mg tablet 1 tab PO BEDTIME 0RF Tradjenta 5 mg tablet 1 tab PO DAILY 0RF albuterol sulfate 2.5 mg /3 mL (0.083 %) solution for nebulization 2.5 mg inhalation Q6H PRN (Reason: bronchospasm) 30 Days Qty: 360 0RF (DME) lancets 30 gauge misc See Rx Instructions ea topical BID Qty: 100 0RF Rx Instructions: As directed (DME) blood sugar diagnostic Strip See Rx Instructions strip Not Applicable BID Qty: 10 0RF Rx Instructions: As directed (DME) blood-glucose meter Kit See Rx Instructions ea .ROUTE .MEDSUPPLY Qty: 1 0RF Rx Instructions: As directed (DME) lancing device Misc See Rx Instructions ea topical .MEDSUPPLY Qty: 1 0RF Rx Instructions: As directed (DME) blood glucose control high,low Solution See Rx Instructions ea .ROUTE .MEDSUPPLY Qty: 1 0RF Rx Instructions: As directed Discharge Orders: Discharge Order (Routine); Ordered 03/31/22 Ordered By: Brenna Griffith Diet: advance to usual diet and low salt diet Activity on Discharge: As tolerated Stand Alone Forms: Patient Portal Discharge page Print Language: [place]anian Care Plan Goals: Read below Health Concerns: Read below Plan of Treatment: Read below Assessment: you were admitted to the hospital for evaluation of difficulty breathing. Treated for heart failure and COPD exacerbation with steroids, inhalers and water pills with good response over the course of hospital stay as your kidney function improved back to baseline. Continue prednisone for the next 3 days Use your nebulizers 4 times a day for the next 3 days Monitor your weight at home and report any changes to your PCP
--- NOTE | 2022-03-31 12:42 | MHC.CM.PN ---
IMM 03/31/22 FEMALE 76 DX SHORTNESS OF BREATH Per MD rounds discharge today. [facility] has been notified of discharge. They will resume services tomorrow. [facility] is not in [facility] [place] info has been faxed to the agency. Patient has arranged for transportation home.
== END 2022-03-31 14:00 | disposition home health service (06) | DRG 291 ==
LOC: HO.ED 16:35 → HO.EDOVER 17:06 → HO.IMC 03-29 18:15
PROVIDERS: Physician Assistant Medical; Admitting Provider Student in an Organized Health Care Education/Training Program; Emergency Provider Internal Medicine; PCP Internal Medicine; Visit Provider Student in an Organized Health Care Education/Training Program
DX: I13.0 Hypertensive heart and chronic kidney disease with heart failure and stage 1 through stage 4 chronic kidney disease, or unspecified chronic kidney disease (principal); I50.33 Acute on chronic diastolic (congestive) heart failure; U07.1 COVID-19; N18.4 Chronic kidney disease, stage 4 (severe); J44.1 Chronic obstructive pulmonary disease with (acute) exacerbation; E11.22 Type 2 diabetes mellitus with diabetic chronic kidney disease; E11.65 Type 2 diabetes mellitus with hyperglycemia; E83.42 Hypomagnesemia; E78.5 Hyperlipidemia, unspecified; Z99.3 Dependence on wheelchair; E87.5 Hyperkalemia; Z91.013 Allergy to seafood; Z88.8 Allergy status to other drugs, medicaments and biological substances; Z79.82 Long term (current) use of aspirin; Z79.51 Long term (current) use of inhaled steroids; Z79.84 Long term (current) use of oral hypoglycemic drugs; Z79.52 Long term (current) use of systemic steroids; Z79.899 Other long term (current) drug therapy
CPT/HCPCS: 36415; 71046; 78580; 80048; 80053; 82803; 82947; 83605; 83735; 83880; 84484; 85025; 85027; 85379; 85610; 85730; 87040; 87502; 87635; 93005; 94640; 96365; 96366; 96375; 97110; 97161; 99285; A9540; J1100; J1650; J1940; J2920; J3475

== ENCOUNTER → 2022-04-02 09:56 | Outpatient (BNVA) | payer OTHER, SELFPAY | PROVIDERS: PCP Internal Medicine; Visit Provider Internal Medicine | DX: J44.9 Chronic obstructive pulmonary disease, unspecified (principal); G47.33 Obstructive sleep apnea (adult) (pediatric); R29.898 Other symptoms and signs involving the musculoskeletal system; Z79.899 Other long term (current) drug therapy; Z86.16 Personal history of COVID-19 | CPT/HCPCS: 99212 ==

== ENCOUNTER → 2022-04-11 13:23 | Outpatient (REF) | payer OTHER, SELFPAY ==
--- NOTE | 2022-04-11 13:26 | ECG_ITS ---
Hook-up date: 2022-04-11 12:34:00 Duration: 47:59:00 Test Indications: TACHYCARDIA Medications: 882211 QRS complexes 4842 Ventricular ectopics which represent 1 % of total QRS comp. 70300 Supraventricular ectopics which represent 8 % of total QRS comp. * Paced QRS complexs which represent % of total QRS comp. VENTRICULAR ECTOPY 4797 Isolated 6 Bigeminal Cycles 21 Couplets 1 Runs 3 Beats in Runs 3 Beats LONGEST at 223 BPM at 10:25:09 2022-04-13 3 Beats FASTEST at 223 BPM at 10:25:09 2022-04-13 SUPRAVENTRICULAR ECTOPY 76087 Isolated 1272 Couplets 437 Runs 8658 Beats in Runs 1306 Beats LONGEST at 139 BPM at 21:54:50 2022-04-12 3 Beats FASTEST at 211 BPM at 16:09:12 2022-04-11 HEART RATES 81 MIN at 03:55:44 2022-04-12 104 AVG 221 MAX at 08:32:31 2022-04-13 LONGEST RR 0.8640 secs at 09:31:26 2022-04-13 S-T LEVELS Channel 1 - 128 mm at 12:34:00 2022-04-11 - 128 mm at 12:34:00 2022-04-11 Channel 2 - 128 mm at 12:34:00 2022-04-11 - 128 mm at 12:34:00 2022-04-11 Channel 3 - 128 mm at 03:15:31 -- - 128 mm at 03:15:31 Basic rhythm Normal sinus rhythm No long pause or profound bradycardia Frequent Premature ventricular complexes , 2% of total beats Frequent Premature atrial complexes Frequent bursts of SVEs, longest 1300 beats, could represnet AF No diary submitted Referred By: Lisa Rojo Overread By: MATRÍN ENCISO MD
== END ==
LOC: HO.CARD 13:23
PROVIDERS: PCP Internal Medicine; Visit Provider Internal Medicine
DX: R07.9 Chest pain, unspecified (principal); R00.0 Tachycardia, unspecified
CPT/HCPCS: 93225; 93226

== ENCOUNTER → 2022-04-29 13:17 | Outpatient (BNVA) | payer OTHER, SELFPAY | PROVIDERS: PCP Internal Medicine; Visit Provider Internal Medicine | DX: J44.9 Chronic obstructive pulmonary disease, unspecified (principal); G47.33 Obstructive sleep apnea (adult) (pediatric); E66.9 Obesity, unspecified | CPT/HCPCS: 99212 ==

== ENCOUNTER 2022-05-01 09:22 | Inpatient (IN) | payer OTHER, SELFPAY ==
[2022-05-01] VITALS (7 sets, daily range): BP systolic 104–157; BP diastolic 35–88; PULSE 105–122; RESP 17–26; TEMP 36.7–36.9; O2SAT 96–98; BMI 36.6
--- NOTE | ~2022-05-01 | XR_ITS ---
EXAMINATION: XR CHEST CLINICAL INFORMATION: Shortness of breath COMPARISON: 03/28/2022 and 08/17/2020 TECHNIQUE: 2 views of the chest were obtained. FINDINGS: Again seen are mild changes of CHF with interstitial prominence and tiny pleural effusions with improvement when compared to the 03/28/2022 study. No gross consolidations. Mild cardiac enlargement. XR/XR chest 2V IMPRESSION: Mild CHF, however improved when compared to 03/28/2022. On 08/17/2020, chest radiograph was essentially normal.
--- NOTE | ~2022-05-01 | NM_ITS ---
EXAMINATION: PULMONARY PERFUSION STUDY CLINICAL INFORMATION: Shortness of breath, elevated d-dimer. COMPARISON: The previous lung scan dated 03/28/2022 is available for comparison. Radiographs of the chest dated 05/01/2022, the same date as this lung scan, are available for comparison. TECHNIQUE: Following the intravenous injection of 4.0 mCi Tc-99m MAA, the lungs were imaged in the anterior and posterior, left and right lateral and HELDER, VILLATORO, LPO, and RPO projections using a gamma scintillation camera. FINDINGS: No segmental perfusion defects are present. There is very minimal heterogeneity in the distribution of activity in the lower lobes bilaterally. No focal anatomic appearing perfusion defects are present. The cardiac silhouette is prominent but probably not outside the limits of normal. Compared to the previous lung scan dated 03/28/2022, there has not been a significant change. The contemporaneous chest radiograph shows mild congestive heart failure and cardiomegaly. NM/NM pul perfusion IMPRESSION: Very low probability of pulmonary embolism.
--- NOTE | 2022-05-01 09:30 | ED_ITS ---
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 Patient states that over the last couple of days, she has had increasing shortness of breath. Patient states that she was admitted for this same problem last month. Patient's son states that the patient was seen by her PCP but was not given the steroids they said they'd give her. Patient denies any dizziness, lightheadedness, abdominal pain, nausea, vomiting, fever, chills, blurry vision, double vision, loss of vision, chest pain, back pain, night sweats, pain with urination, increased urinary frequency, increased urinary urgency, blood in her urine or stool, syncope or a near syncopal episode, recent trauma or falls, bowel incontinence, bladder incontinence, bowel retention, bladder retention, or any other complaints at this time. Onset (ago): day(s) Severity: moderate Severity scale (1-10): 5 Relieving factors: none Exacerbating factors: none Associated symptoms: shortness of breath Treatments prior to arrival: aspirin (from EMS) Related Data Home Medications Medication Instructions Recorded Confirmed blood glucose control high and low #1 01/31/21 04/02/22 solution blood sugar diagnostic #10 01/31/21 04/02/22 blood-glucose meter #1 01/31/21 04/02/22 lancets 30 gauge #100 01/31/21 04/02/22 lancing device #1 01/31/21 04/02/22 atorvastatin 80 mg tablet 80 mg PO BEDTIME 03/28/22 04/02/22 linagliptin 5 mg tablet (Tradjenta) 1 tab PO DAILY 03/28/22 04/02/22 trazodone 50 mg tablet 1 tab PO BEDTIME 03/28/22 04/02/22 fluticasone 250 mcg-salmeterol 50 1 inh inhalation BID 04/02/22 04/02/22 mcg/dose blistr powdr for inhalation (Advair Diskus) Previous Rx's Medication Instructions Recorded furosemide 20 mg tablet 20 mg PO DAILY 90 days #90 tabs 07/10/21 cholecalciferol (vitamin D3) 25 25 mcg PO DAILY 90 days #90 tabs 02/24/22 mcg (1,000 unit) tablet diphenhydramine HCl 25 mg capsule 25 mg PO TID PRN for allergies 30 03/25/22 (Banophen) days #90 caps albuterol sulfate 2.5 mg (3 mL) inhalation Q6H PRN 03/31/22 bronchospasm 30 days #360 mL metformin 500 mg tablet,extended 1,000 mg PO BEDTIME 90 days #180 04/21/22 release 24 hr tabs montelukast 10 mg tablet 10 mg PO DAILY 90 days #90 tabs 04/21/22 Allergies Allergy/AdvReac Type Severity Reaction Status Date / Time fish derived [FISH] Allergy Mild RASH, Verified 04/29/22 14:06 ITCHY, SWELLING linagliptin [Tradjenta] AdvReac Mild rash Verified 04/29/22 14:06 Review of Systems Constitutional: Constitutional: Reports no additional constitutional comp laints, Denies chills, Denies fever(s) and Denies night sweats Eyes: Eyes: Reports no additional eye complaints, Denies blurry vision, Denies change in vision, Denies diplopia, Denies eye discharge, Denies loss of vision and Denies eye pain ENT: Denies dizziness Cardiovascular: Cardiovascular: Reports no additional cardiovascular complaints, Denies chest pain, Denies lightheadedness, Denies Loss of Consciousness and Reports dyspnea Respiratory: Respiratory: Reports no additional respiratory complaints and Reports dyspnea Gastrointestinal: Gastrointestinal: Reports no additional gastrointestinal complaints, Denies abdominal pain, Denies melena, Denies hematochezia, Denies change in bowel habits and Denies change in stool character Genitourinary: Genitourinary: Denies hematuria, Denies urinary frequency, Denies dysuria, Denies urinary incontinence, Denies urinary hesitancy and Denies urinary urgency Musculoskeletal: Musculoskeletal: Reports no additional musculoskeletal complaints, Denies numbness and Denies tingling Neurologic: Denies dizziness, Denies loss of vision, Denies numbness and Denies tingling Psychiatric: Psychiatric: Reports no additional psychiatric complaints Endocrine: Endocrine: Reports no additional endocrine complaints Hematologic/Lymphatic: Hematologic/Lymphatic: Reports no additional hematologic/lymphatic complaints Allergic/Immunologic: Allergic/Immunologic: Reports no additional allergic/immunologic complaints PMFSH Past Medical History Attestation statement: The following information was validated with the patient. Source: old records reviewed Medical History Anxiety Asthma CHF (congestive heart failure) COPD (chronic obstructive pulmonary disease) Depression Diabetes mellitus, type 2 Hypertension Renal insufficiency Surgical History H/O: hysterectomy History of tubal ligation Family History Family History Father Cancer Mother Diabetes Daughter Myocardial infarction Social History Social History Household Members: None Housing: House Do you presently have visiting nurse or other home services: No Alcohol intake: never Patient Tobacco Use Status: Never used Tobacco e-Cigarette/Vaping Use: Never Used Second Hand Smoke Exposure: No Use of substances other than those prescribed or required for medical reasons: No Advance Directives: Yes Advance Directives on File: Yes Advance Directives Date on File: 11/09/00 service: No Current occupational status: disabled Cognitive needs: Yes Hearing needs: No Vision needs: No Physical Exam ED Vital Signs: Vital Signs - 24 hr 05/01/22 09:33 05/01/22 10:15 05/01/22 11:16 Temperature 98.2 F Pulse Rate 111 H 109 H 108 H Respiratory Rate 26 H 18 18 Blood Pressure 154/52 H 104/35 L Pulse Oximetry 98 98 Oxygen Delivery Method Room Air Room Air 05/01/22 14:03 Temperature 98.5 F Pulse Rate 108 H Respiratory Rate 20 Blood Pressure 124/46 L Pulse Oximetry 96 Oxygen Delivery Method Room Air BMI result Body Mass Index 36.6 Const General: cooperative, no acute distress, alert and awake Nutritional Appearance: well nourished Orientation/consciousness: patient oriented x3 Limitations: no limitations HENMT Head: Yes normal to inspection and Yes atraumatic Ears: hearing grossly normal bilaterally and external ears normal General nose exam: Normal external nose present, no nasal discharge noted and no epistaxis Face and sinus: Yes normal facial exam, No abrasion and No laceration Mouth: Normal oral and palatal mucosa present, no drooling and no muffled voice Eyes General: appearance normal, both eyes and all related structures Periorbital: periorbital findings normal Eyelids: Yes eyelids normal Conjunctivae: conjunctivae normal Pupils: Equal, round and reactive pupils present EOM: EOMs intact bilaterally Neck Neck: Yes normal visual inspection, Yes full ROM and Yes no lymphadenopathy Chest Chest palpation & inspection: normal inspection of the chest Resp Effort & Inspection: normal respiratory effort and able to speak in complete sentences Auscultation: diminished lung sounds Cardio Rate: tachycardic Rhythm: regular rhythm GI Inspection: Yes normal to inspection Neuro General: patient oriented x3 and moves all extremities Cranial nerves: Yes Equal, round and reactive pupils present Cognition (Neuro): normal cognition Motor exam (neuro): 5/5 motor strength present throughout Sensory Exam: Normal double simultaneous stimulation for sensation Coordination: [id number] test normal Extrem General: Yes normal to inspection, Yes full ROM and Yes capillary refill normal Psych Appearance: grossly normal Mental Status: mental status grossly normal Affect: normal affect Attitude: cooperative Thought process: Normal thought process present Thought content: Normal thought content present Insight: Good insight present (Psych) Medical Decision Making [facility] Narrative Medical decision making narrative: Patient is a 76 year old female presenting to the emergency department today with increased shortness of breath. Patient's physical exam showed bilateral diminished lung sounds and tachycardia. Patient's blood work showed an elevated BNP and d dimer with a decreased HGB of 8. Patient's kidney function is chronically poor, and thus her creatinine is chronically elevated. Patient's EKG was unremarkable. Patient's chest x-ray showed CHF. Patient's VQ scan was unremarkable. I explained my physical exam findings as well as all test results to the patient and the patient's son. I answered all questions asked by the patient and the patient's son. I spoke to Dr. Andino who agreed to hospital admission. Patient and the patient's son verbalized agreement and understanding with this treatment plan and admission. Differential Diagnosis Differential Diagnosis: SOB, CHF, anemia Medical Records Medical records reviewed: Yes I reviewed the patient's medical records. Lab Data Lab results reviewed: Yes I reviewed the patient's lab results. Result diagrams: 05/01/22 11:01 05/01/22 11:01 Labs: Lab Results 05/01/22 05/01/22 05/01/22 Range/Units 11:01 11:01 11:01 WBC 8.8 (4.8-10.8) X10*3/uL RBC 2.74 L (4.20-5.50) X10*6/uL Hgb 8.0 L (12.0-16.0) g/dl Hct 25.8 L (37.0-47.0) % MCV 94.2 (80.0-98.0) fL MCH 29.2 (27.0-33.0) pg MCHC 31.0 (31.0-35.0) g/dl RDW 13.3 (11.0-16.0) % Plt Count 367 (160-400) X10*3/uL MPV 9.5 (9.4-12.3) fL Immature Gran % (Auto) 1.1 H (0.0-0.4) % Neut % (Auto) 75.8 H (45-73) % Lymph % (Auto) 14.1 L (20-40) % [place] % (Auto) 7.7 (2-11) % Eos % (Auto) 0.7 (0-4) % Baso % (Auto) 0.6 (0-2) % Lymph # (Auto) 1.2 (1.2-4.9) X10*3/uL [place] # (Auto) 0.7 (0.1-1.2) X10*3/uL Eos # (Auto) 0.1 (0.0-0.4) X10*3/uL Baso # (Auto) 0.1 (0.0-0.2) X10*3/uL Abs Immat Gran (auto) 0.10 H (0.00-0.03) X10*3/uL Absolute Neuts (auto) 6.6 (2.0-8.3) x10*3/uL Absolute Nucleated RBC 0.000 (0.0-0.012) X10*3/uL Nucleated RBC % (auto) 0.0 (0.0-0.2) /100WBC D-Dimer High Sensitivty 1425 NG/ML VBG pH (7.32-7.43) VBG pCO2 mmHg VBG pO2 mmHg VBG HCO3 (22-26) mmol/L VBG O2 Saturation % VBG Base Excess mmol/L Sodium 136 (135-145) mmol/L Potassium 4.7 (3.3-5.1) mmol/L Chloride 108 (96-108) mmol/L Carbon Dioxide 19 L (22-29) mmol/L Anion Gap 14 (12-20) BUN 37 H (9-16) mg/dL Creatinine 1.60 H (0.5-1.4) mg/dL Estim Creat Clear Calc 27.3 Estimated GFR 31 Random Glucose 139 H (60-115) mg/dL Calcium 8.8 (8.4-10.2) mg/dL Magnesium 1.6 (1.6-2.6) mg/dL Total Bilirubin 0.2 (0.0-1.0) mg/dL AST 25 D (5-31) U/L ALT 28 (0-31) U/L Alkaline Phosphatase 60 (39-117) U/L Troponin I High Sens (<3.5-17.0) ng/L B-Natriuretic Peptide (<100) pg/mL Total Protein 6.3 L (6.5-8.0) g/dL Albumin 3.5 (3.5-5.0) g/dL Respiratory Panel Santos Adenovirus (Rapid PCR) (Not Detect.) B.pert (TEM-PCR) (Not Detect.) B.parapertussis DNA PCR (Not Detect.) C. pneumoniae DNA (PCR) (Not Detect.) Coronavirus OC43 (PCR) (Not Detect.) Coronavirus HKU1 (PCR) (Not Detect.) Coronavirus 229E (PCR) (Not Detect.) Coronavirus NL63 (PCR) (Not Detect.) Human Metapneumovir PCR (Not Detect.) Influenza A (RT-PCR) (Not Detect.) Influenza B (RT-PCR) (Not Detect.) M. pneumoniae (PCR) (Not Detect.) Parainfluenza 1 (PCR) (Not Detect.) Parainfluenza 2 (PCR) (Not Detect.) Parainfluenza 3 (PCR) (Not Detect.) Parainfluenza 4 (PCR) (Not Detect.) RSV (PCR) (Not Detect.) Entero/Rhino (PCR) (Not Detect.) SARS-CoV-2 RNA (RT-PCR) (Not Detect.) 05/01/22 05/01/22 05/01/22 Range/Units 11:01 11:01 11:40 WBC (4.8-10.8) X10*3/uL RBC (4.20-5.50) X10*6/uL Hgb (12.0-16.0) g/dl Hct (37.0-47.0) % MCV (80.0-98.0) fL MCH (27.0-33.0) pg MCHC (31.0-35.0) g/dl RDW (11.0-16.0) % Plt Count (160-400) X10*3/uL MPV (9.4-12.3) fL Immature Gran % (Auto) (0.0-0.4) % Neut % (Auto) (45-73) % Lymph % (Auto) (20-40) % [place] % (Auto) (2-11) % Eos % (Auto) (0-4) % Baso % (Auto) (0-2) % Lymph # (Auto) (1.2-4.9) X10*3/uL [place] # (Auto) (0.1-1.2) X10*3/uL Eos # (Auto) (0.0-0.4) X10*3/uL Baso # (Auto) (0.0-0.2) X10*3/uL Abs Immat Gran (auto) (0.00-0.03) X10*3/uL Absolute Neuts (auto) (2.0-8.3) x10*3/uL Absolute Nucleated RBC (0.0-0.012) X10*3/uL Nucleated RBC % (auto) (0.0-0.2) /100WBC D-Dimer High Sensitivty NG/ML VBG pH 7.41 (7.32-7.43) VBG pCO2 32 mmHg VBG pO2 58 mmHg VBG HCO3 21 L (22-26) mmol/L VBG O2 Saturation 87.0 % VBG Base Excess -2.9 mmol/L Sodium (135-145) mmol/L Potassium (3.3-5.1) mmol/L Chloride (96-108) mmol/L Carbon Dioxide (22-29) mmol/L Anion Gap (12-20) BUN (9-16) mg/dL Creatinine (0.5-1.4) mg/dL Estim Creat Clear Calc Estimated GFR Random Glucose (60-115) mg/dL Calcium (8.4-10.2) mg/dL Magnesium (1.6-2.6) mg/dL Total Bilirubin (0.0-1.0) mg/dL AST (5-31) U/L ALT (0-31) U/L Alkaline Phosphatase (39-117) U/L Troponin I High Sens 28.8 H (<3.5-17.0) ng/L B-Natriuretic Peptide 659 H (<100) pg/mL Total Protein (6.5-8.0) g/dL Albumin (3.5-5.0) g/dL Respiratory Panel Santos See Note Adenovirus (Rapid PCR) Not Detected (Not Detect.) B.pert (TEM-PCR) Not Detected (Not Detect.) B.parapertussis DNA PCR Not Detected (Not Detect.) C. pneumoniae DNA (PCR) Not Detected (Not Detect.) Coronavirus OC43 (PCR) Not Detected (Not Detect.) Coronavirus HKU1 (PCR) Not Detected (Not Detect.) Coronavirus 229E (PCR) Not Detected (Not Detect.) Coronavirus NL63 (PCR) Not Detected (Not Detect.) Human Metapneumovir PCR Not Detected (Not Detect.) Influenza A (RT-PCR) Not Detected (Not Detect.) Influenza B (RT-PCR) Not Detected (Not Detect.) M. pneumoniae (PCR) Not Detected (Not Detect.) Parainfluenza 1 (PCR) Not Detected (Not Detect.) Parainfluenza 2 (PCR) Not Detected (Not Detect.) Parainfluenza 3 (PCR) Not Detected (Not Detect.) Parainfluenza 4 (PCR) Not Detected (Not Detect.) RSV (PCR) Not Detected (Not Detect.) Entero/Rhino (PCR) Not Detected (Not Detect.) SARS-CoV-2 RNA (RT-PCR) Not Detected (Not Detect.) Imaging Data Chest x-ray: Attestation: I personally reviewed and interpreted this imaging study as follows: My impression: Evidence of CHF. Radiologist's impression: EXAMINATION: XR CHEST CLINICAL INFORMATION: Shortness of breath COMPARISON: 03/28/2022 and 08/17/2020 TECHNIQUE: 2 views of the chest were obtained. FINDINGS: Again seen are mild changes of CHF with interstitial prominence and tiny pleural effusions with improvement when compared to the 03/28/2022 study. No gross consolidations. Mild cardiac enlargement. XR/XR chest 2V IMPRESSION: Mild CHF, however improved when compared to 03/28/2022. On 08/17/2020, chest radiograph was essentially normal. Dictated By: Doc Estrada MD Signed By: Electronically signed by oDc Estrada MD 05/01/22 1058 Pulmonary Perfusion Imaging: Attestation: I personally reviewed and interpreted this imaging study as follows: My impression: No evidence of PE. Radiologist's impression: EXAMINATION: PULMONARY PERFUSION STUDY CLINICAL INFORMATION: Shortness of breath, elevated d-dimer. COMPARISON: The previous lung scan dated 03/28/2022 is available for comparison. Radiographs of the chest dated 05/01/2022, the same date as this lung scan, are available for comparison. TECHNIQUE: Following the intravenous injection of 4.0 mCi Tc-99m MAA, the lungs were imaged in the anterior and posterior, left and right lateral and KINYARWANDA, VILLATORO, LPO, and RPO projections using a gamma scintillation camera. FINDINGS: No segmental perfusion defects are present. There is very minimal heterogeneity in the distribution of activity in the lower lobes bilaterally. No focal anatomic appearing perfusion defects are present. The cardiac silhouette is prominent but probably not outside the limits of normal. Compared to the previous lung scan dated 03/28/2022, there has not been a significant change. The contemporaneous chest radiograph shows mild congestive heart failure and cardiomegaly. NM/NM pul perfusion IMPRESSION: Very low probability of pulmonary embolism. Dictated By: Kameron Bruce MD Signed By: Electronically signed by Kameron Bruce MD 05/01/22 1411 ECG Data Attestation: I personally reviewed and interpreted this ECG as follows: Prior ECG tracings: available for review Interpretation: Vent. Rate: 109 BPM ? ? Atrial Rate: 109 BPM P-R Int: 176 ms? QRS Dur: 080 ms QT Int: 338 ms ? ? ? P-R-T Axes: 058 061 049 degrees QTc Int: 455 ms ? Sinus tachycardia with occasional Premature ventricular complexes Otherwise normal ECG When compared with ECG of 28-MAR-2022 10:03, Premature ventricular complexes are now Present ? Electronically Signed By:FLORIAN ENCISO MD Dictated By: Florian Enciso MD Signed By: Electronically signed by Florian Enciso MD 05/01/22 1526 Discharge Plan Discharge Clinical Impression: CHF (congestive heart failure), COPD (chronic obstructive pulmonary disease), A nemia Patient Disposition: Admitted As Inpatient
--- NOTE | 2022-05-01 09:32 | ECG_ITS ---
Test Reason : chest pain Blood Pressure : / mmHG Vent. Rate : 109 BPM Atrial Rate : 109 BPM P-R Int : 176 ms QRS Dur : 080 ms QT Int : 338 ms P-R-T Axes : 058 061 049 degrees QTc Int : 455 ms Sinus tachycardia with occasional Premature ventricular complexes Otherwise normal ECG When compared with ECG of 28-MAR-2022 10:03, Premature ventricular complexes are now Present Referred By: Sofi Anderson Electronically Signed By:MARTÍN ENCISO MD
[2022-05-01] MEDS: dexAMETHasone sod phosphate 10 MG/ML VIAL IVPUSH (09:53)
[2022-05-01] MEDS: Albuterol/Iprat 2.5/0.5MG 3 ML AMPUL.NEB INHALE ×3 (10:13→23:28)
[2022-05-01 11:19] LABS: MANUAL DIFF FLAG NO
[2022-05-01 11:22] LABS: Basophils Absolute Auto 0.1 X10*3/uL (0.0-0.2); Basophils Percent Auto 0.6 % (0-2); Eosinophils Absolute Auto 0.1 X10*3/uL (0.0-0.4); Eosinophils Percent Auto 0.7 % (0-4); Hematocrit 25.8 % (37.0-47.0); Imm Gran Pct Auto 1.1 % (0.0-0.4); Lymphocytes Absolute Auto 1.2 X10*3/uL (1.2-4.9); Lymphocytes Percent Auto 14.1 % (20-40); Mean Corpuscular Hemoglobin 29.2 pg (27.0-33.0); Mean Corpuscular Volume 94.2 fL (80.0-98.0); Mean Platelet Volume 9.5 fL (9.4-12.3); Monocytes Absolute Auto 0.7 X10*3/uL (0.1-1.2); Monocytes Percent Auto 7.7 % (2-11); Neutrophils Absolute Auto 6.6 x10*3/uL (2.0-8.3); Neutrophils Percent Auto 75.8 % (45-73); Platelet Count 367 X10*3/uL (160-400); Red Blood Count 2.74 X10*6/uL (4.20-5.50); Red Cell Distribution Width 13.3 % (11.0-16.0); White Blood Count 8.8 X10*3/uL (4.8-10.8)
[2022-05-01 11:36] LABS: D Dimer High Sensitivity 1425 NG/ML
[2022-05-01 11:42] LABS: Venous Blood Gas Refer to POC result
[2022-05-01 11:43] LABS: B Type Natriuretic Peptide 659 pg/mL (<100); Troponin-I High Sensitivity 28.8 ng/L (<3.5-17.0)
[2022-05-01 11:44] LABS: Alanine Aminotransferase 28 U/L (0-31); Albumin Level 3.5 g/dL (3.5-5.0); Alkaline Phosphatase 60 U/L (39-117); Anion Gap 14 (12-20); Aspartate Amino Transferase 25 U/L (5-31); Bilirubin Total 0.2 mg/dL (0.0-1.0); Blood Urea Nitrogen 37 mg/dL (9-16); Calcium 8.8 mg/dL (8.4-10.2); Carbon Dioxide 19 mmol/L (22-29); Chloride 108 mmol/L (96-108); Creatinine Clr Calc Pharmacy 27.3; Estimated Glomerular Filt Rate 31; Glucose Random 139 mg/dL (60-115); Magnesium 1.6 mg/dL (1.6-2.6); Potassium 4.7 mmol/L (3.3-5.1); Sodium 136 mmol/L (135-145); Total Protein 6.3 g/dL (6.5-8.0)
[2022-05-01 11:44] LABS: VBG Base Excess -2.9 mmol/L; VBG HCO3 21 mmol/L (22-26); VBG pCO2 32 mmHg; VBG pH 7.41 (7.32-7.43); VBG pO2 58 mmHg
[2022-05-01 12:55] LABS: Adenovirus PCR Not Detected (Not Detect.); Bordetella parapertussis PCR Not Detected (Not Detect.); Bordetella pertussis PCR Not Detected (Not Detect.); Chlamydia pneumoniae PCR Not Detected (Not Detect.); Coronavirus 229E PCR Not Detected (Not Detect.); Coronavirus HKU1 PCR Not Detected (Not Detect.); Coronavirus NL63 PCR Not Detected (Not Detect.); Coronavirus OC43 PCR Not Detected (Not Detect.); Human metapneumovirus PCR Not Detected (Not Detect.); Influenza A PCR Not Detected (Not Detect.); Influenza B PCR Not Detected (Not Detect.); Mycoplasma pneumoniae PCR Not Detected (Not Detect.); Parainfluenza 1 PCR Not Detected (Not Detect.); Parainfluenza 2 PCR Not Detected (Not Detect.); Parainfluenza 3 PCR Not Detected (Not Detect.); Parainfluenza 4 PCR Not Detected (Not Detect.); RSV PCR Not Detected (Not Detect.); Rhino/Enterovirus PCR Not Detected (Not Detect.); SARS-CoV-2 PCR Not Detected (Not Detect.)
--- NOTE | 2022-05-01 16:19 | P.HPHOSP_ITS ---
History of Present Illness Date of Service: 05/01/22 Attending physician on admission: Carroll Andino Chief Complaint: shortness of breath 76-year-old female with past medical history of diastolic congestive heart failure, COPD, diabetes, hypertension, chronic kidney disease stage 3 presented to [facility] due to shortness of breath of few days duration patient was admitted to [facility] on March of 2022 and diagnosed to have COVID infection, patient was treated with steroids and bronchodilators with good response, as per patient shortness of breath started see since 4 days ago she described it as chest congestion associated with 1 episode of chest discomfort that occurred while resting and resolved no recurrence , c/o orthopnea, leg swelling,cough productive of yellow phlegm, she denies associated fever chills, she denies recent travel, no sick contacts, she is compliant with home medications, denies hematemesis, no melena in the emergency room noted to have hematocrit of 25.8 hemoglobin 8, stable kidney function blood sugar 1389 troponin 28.8 and BNP of 659 chest x-ray shows mild congestive heart failure , chronic since last admission, in the emergency room patient treated with 1 dose of Decadron and updraft, and now being admitted due to acute CHF exacerbation, Mild COPD exacerbation, worsening chronic anemia of inflammatory disease. Review of Systems Review of Systems: General no headache, no dizziness no fever chills. CVS no chest pain, no palpitation. Respiratory shortness of breath, productive cough Gastrointestinal no nausea no vomiting, no abdominal pain no urgency, no hematuria skin no rash Yes all other systems are reviewed and are negative [facility] Medical History Anxiety Asthma CHF (congestive heart failure) COPD (chronic obstructive pulmonary disease) Depression Diabetes mellitus, type 2 Hypertension Renal insufficiency Family History Father Cancer Mother Diabetes Daughter Myocardial infarction Surgical History H/O: hysterectomy History of tubal ligation Social History Household Members: None Housing: House Do you presently have visiting nurse or other home services: No Alcohol intake: never Patient Tobacco Use Status: Never used Tobacco e-Cigarette/Vaping Use: Never Used Second Hand Smoke Exposure: No Use of substances other than those prescribed or required for medical reasons: No Advance Directives: Yes Advance Directives on File: Yes Advance Directives Date on File: 11/09/00 service: No Current occupational status: disabled Cognitive needs: Yes Hearing needs: No Vision needs: No Meds Allergies Allergy/AdvReac Type Severity Reaction Status Date / Time fish derived [FISH] Allergy Mild RASH, Verified 04/29/22 14:06 ITCHY, SWELLING linagliptin [Tradjenta] AdvReac Mild rash Verified 04/29/22 14:06 Active Medications: Current Medications Acetaminophen (Acetaminophen 325 Mg Tablet) 650 mg PO Q6H PRN PRN Reason: Pain, Mild (Pain Scale 1-3) Albuterol/Ipratropium (Albuterol/Iprat 2.5/0.5mg 3 Ml Ampul.Neb) 3 ml INHALE RQ6H WHILE AWAKE VANESSA Epoetin Lee (Epoetin Lee 10,000 Unit/Ml Vial) 10,000 unit SUBCUT ONCE ONE Stop: 05/01/22 16:19 Guaifenesin/Dextromethorphan (Guaifenesin Dm 100/10/5 Ml 5 Ml Syrup) 10 ml PO Q8H VANESSA Heparin Sodium (Porcine) (Heparin Sodium,Porcine 5,000 Unit/Ml Vial) 5,000 unit SUBCUT Q8H COUNT INCLUDES THE [facility] Melatonin (Melatonin 3 Mg Tablet) 3 mg PO BEDTIME PRN PRN Reason: Insomnia Ondansetron HCl (Ondansetron Hcl 4 Mg/2 Ml Vial) 4 mg IVPUSH Q8H PRN PRN Reason: Nausea and Vomiting Sodium Chloride (0.9 % Sodium Chloride Flush 3 Ml Syringe) 3 ml IVFLUSH QSHIFT COUNT INCLUDES THE [facility] Home Medications Medication Instructions Recorded Confirmed Last Taken Type blood glucose control high and low #1 ea 01/31/21 04/02/22 03/28/22 History solution blood sugar diagnostic #10 ea 01/31/21 04/02/22 03/28/22 History blood-glucose meter #1 ea 01/31/21 04/02/22 03/28/22 History lancets 30 gauge #100 ea 01/31/21 04/02/22 03/28/22 History lancing device #1 ea 01/31/21 04/02/22 03/28/22 History atorvastatin 80 mg tablet 80 mg PO BEDTIME 03/28/22 04/02/22 03/27/22 History linagliptin 5 mg tablet (Tradjenta) 1 tab PO DAILY 03/28/22 04/02/22 03/28/22 History trazodone 50 mg tablet 1 tab PO BEDTIME 03/28/22 04/02/22 03/27/22 History fluticasone 250 mcg-salmeterol 50 1 inh inhalation BID 04/02/22 04/02/22 Unknown History mcg/dose blistr powdr for inhalation (Advair Diskus) aspirin 81 mg tablet,delayed 81 mg PO DAILY 05/01/22 05/01/22 Unknown History release montelukast 10 mg tablet 10 mg PO BEDTIME 05/01/22 05/01/22 Unknown History Physical Exam Vital Signs and Narrative: Vital Signs: Last Vital Signs Temp 98.5 F 05/01/22 14:03 Pulse 108 H 05/01/22 14:03 Resp 20 05/01/22 14:03 BP 124/46 L 05/01/22 14:03 Pulse Ox 96 05/01/22 14:03 O2 Del Method 05/01/22 14:03 BMI result Body Mass Index 36.6 Const: Other: General awake alert x3, no acute distress. HEENT;PERRLA, anicteric sclerae Neck supple no JVD. CVS regular rate rhythm, Respiratory lungs bibasilar crackles, few expiratory wheeze no use of accessory muscles Gastrointestinal abdomen soft, nontender, bowel sounds audible, no guarding , no rigidity. Extremities no pitting edema. Neuro nonfocal Skin no rash psych appropriate affect Results Labs CBC and Chem 7: 05/01/22 11:01 05/01/22 11:01 Labs: Laboratory Results - last 24 hr 05/01/22 05/01/22 05/01/22 11:01 11:01 11:01 MCV 94.2 MCH 29.2 MCHC 31.0 RDW 13.3 Plt Count 367 MPV 9.5 Immature Gran % (Auto) 1.1 H Neut % (Auto) 75.8 H Lymph % (Auto) 14.1 L [place] % (Auto) 7.7 Eos % (Auto) 0.7 Baso % (Auto) 0.6 Lymph # (Auto) 1.2 [place] # (Auto) 0.7 Eos # (Auto) 0.1 Baso # (Auto) 0.1 Abs Immat Gran (auto) 0.10 H Absolute Neuts (auto) 6.6 Absolute Nucleated RBC 0.000 Nucleated RBC % (auto) 0.0 D-Dimer High Sensitivty 1425 VBG pH VBG pCO2 VBG pO2 VBG HCO3 VBG O2 Saturation VBG Base Excess Anion Gap 14 Estim Creat Clear Calc 27.3 Estimated GFR 31 Random Glucose 139 H Calcium 8.8 Magnesium 1.6 Total Bilirubin 0.2 AST 25 D ALT 28 Alkaline Phosphatase 60 Troponin I High Sens B-Natriuretic Peptide Total Protein 6.3 L Albumin 3.5 Respiratory Panel [place] Adenovirus (Rapid PCR) B.pert (TEM-PCR) B.parapertussis DNA PCR C. pneumoniae DNA (PCR) Coronavirus OC43 (PCR) Coronavirus HKU1 (PCR) Coronavirus 229E (PCR) Coronavirus NL63 (PCR) Human Metapneumovir PCR Influenza A (RT-PCR) Influenza B (RT-PCR) M. pneumoniae (PCR) Parainfluenza 1 (PCR) Parainfluenza 2 (PCR) Parainfluenza 3 (PCR) Parainfluenza 4 (PCR) RSV (PCR) Entero/Rhino (PCR) SARS-CoV-2 RNA (RT-PCR) 05/01/22 05/01/22 05/01/22 11:01 11:01 11:40 MCV MCH MCHC RDW Plt Count MPV Immature Gran % (Auto) Neut % (Auto) Lymph % (Auto) [place] % (Auto) Eos % (Auto) Baso % (Auto) Lymph # (Auto) [place] # (Auto) Eos # (Auto) Baso # (Auto) Abs Immat Gran (auto) Absolute Neuts (auto) Absolute Nucleated RBC Nucleated RBC % (auto) D-Dimer High Sensitivty VBG pH 7.41 VBG pCO2 32 VBG pO2 58 VBG HCO3 21 L VBG O2 Saturation 87.0 VBG Base Excess -2.9 Anion Gap Estim Creat Clear Calc Estimated GFR Random Glucose Calcium Magnesium Total Bilirubin AST ALT Alkaline Phosphatase Troponin I High Sens 28.8 H B-Natriuretic Peptide 659 H Total Protein Albumin Respiratory Panel [place] See Note Adenovirus (Rapid PCR) Not Detected B.pert (TEM-PCR) Not Detected B.parapertussis DNA PCR Not Detected C. pneumoniae DNA (PCR) Not Detected Coronavirus OC43 (PCR) Not Detected Coronavirus HKU1 (PCR) Not Detected Coronavirus 229E (PCR) Not Detected Coronavirus NL63 (PCR) Not Detected Human Metapneumovir PCR Not Detected Influenza A (RT-PCR) Not Detected Influenza B (RT-PCR) Not Detected M. pneumoniae (PCR) Not Detected Parainfluenza 1 (PCR) Not Detected Parainfluenza 2 (PCR) Not Detected Parainfluenza 3 (PCR) Not Detected Parainfluenza 4 (PCR) Not Detected RSV (PCR) Not Detected Entero/Rhino (PCR) Not Detected SARS-CoV-2 RNA (RT-PCR) Not Detected Imaging Radiologist's Impressions: Impressions Chest X-Ray 05/01/22 09:53 IMPRESSION: Mild CHF, however improved when compared to 03/28/2022. On 08/17/2020, chest radiograph was essentially normal. Pulmonary Perfusion Imaging 05/01/22 13:40 IMPRESSION: Very low probability of pulmonary embolism. Assessment and Plan (1) Diabetes mellitus: Qualifiers: Chronic kidney disease stage: stage 3 (moderate) Chronic kidney disease stage 3 subtype: stage 3b (GFR 30-44) Diabetes mellitus complication detail: with chronic kidney disease Diabetes mellitus complication status: with kidney complications Diabetes mellitus rn long term care insulin use: without rn long term care use Diabetes mellitus type: type 2 Qualified Code(s): E11.21 - Type 2 diabetes mellitus with diabetic nephropathy; N18.32 - Chronic kidney disease, stage 3b Status: Acute (2) COPD exacerbation: Status: Acute (3) Acute diastolic CHF (congestive heart failure): Status: Acute (4) Obesity (BMI 30-39.9): Status: Acute (5) Essential hypertension: Status: Acute (6) Pure hypercholesterolemia: Status: Acute Plan 76-year-old female patient with past medical history of CHF, normocytic normochromic anemia, hypertension, chronic kidney disease stage 3 presented to [facility] due to symptoms of shortness of breath of few days duration associated with cough productive of yellow phlegm orthopnea and leg swelling. Acute on chronic diastolic CHF exacerbation patient noted to have elevated BNP and mild CHF on chest x-ray will treat with IV Lasix 40 mg follow BNP, BMP and magnesium Daily weight lilian/os , patient declined low salt /cardiac diet obtain echocardiogram/ cardiology input elevated troponin with 1 episode of chest pain EKG showed no acute ischemic changes will repeat troponin, check echo acute COPD exacerbation place on scheduled and as needed duoneb updraft treatment cough medication and low-dose steroid continue home inhalers acute on chronic normocytic anemia likely anemia of kidney disease will place on Procrit, check stool guaiac, previous iron studies within normal range. obesity bmi 31-36 recommend low-calorie diet, since contributing to other medical issues like diabetes, hyperlipidemia and CHF diabetes mellitus hold metformin place on insulin sliding scale patient refu sing to follow diabetic or low-salt diet will place on regular diet Hyperlipidemia resume statin chronic kidney disease stage 3 code status full code DVT prophylaxis with heparin subQ patient need two night inpatient stay due to acute on chronic diastolic heart failure requiring IV diuretics require further workup including echocardiogram and cardiology follow up. Quality Stroke Does the patient have a stroke diagnosis?: No VTE Prior VTE?: No VTE Risk Level:: Medical - moderate - high VTE Device Contraindication: Treatment Not Indicated VTE Drug Contraindication: N/A - Med Ordered
--- NOTE | 2022-05-01 16:50 | PHA.MEDREC ---
med rec complete based on last discharge note and pharmacy claim history, patient does not know her meds, son will try to bring in a list of her meds Pharmacy Consult ? Medication Reconciliation Pharmacy has completed the medication reconciliation.
[2022-05-01] MEDS: guaiFENesin DM 100/10/5 ML 5 ML SYRUP 10 ML PO (17:56)
[2022-05-01] MEDS: Furosemide 40 MG/4 ML VIAL IVPUSH (17:56)
[2022-05-01 18:44] LABS: Troponin-I High Sensitivity 24.5 ng/L (<3.5-17.0)
[2022-05-01] MEDS: Atorvastatin Calcium 80 MG TABLET PO (22:56)
[2022-05-01] MEDS: traZODone HCL 50 MG TABLET PO (22:56)
[2022-05-01] MEDS: Montelukast Sodium 10 MG TABLET PO (22:56)
[2022-05-01] MEDS: Insulin Lispro 100 UNIT/ML 3 ML VIAL SUBCUT (22:57)
[2022-05-01 23:04] LABS: Glucose, Whole Blood 166 mg/dL (60-115)
[2022-05-02] VITALS (12 sets, daily range): BP systolic 113–162; BP diastolic 49–65; PULSE 95–129; RESP 18–20; TEMP 36.2–36.9; O2SAT 97–99; BMI 37.5
[2022-05-02] MEDS: Heparin Sodium,Porcine 5,000 UNIT/ML VIAL 5000 UNIT SUBCUT ×4 (00:29→22:18)
--- NOTE | 2022-05-02 07:00 | CA_ITS ---
Transthoracic Echocardiogram Patient (Last, First, Middle): Meena Good, Gender: Female Date of : 1945 Age: 76 Procedure Date: 05/02/2022 Procedure Type: Transthoracic Echocardiogram Location: [facility] [place] Height: 149.86 cm Weight: 83.92 kg BSA: 1.78 m2 Heart Rate: bpm BP: 132 / 60 mmHg City Maintenance Manager: KAMRAN Arnold MD: Carroll Andino MD Lion Trainer: Florian Tolliver MD Symptoms: chf Study Quality: Technically Difficult/contrast ECG Rhythm: Sinus with extra beats Conclusions: - 1. Moderate to severe LV systolic dysfunction 2. Severely dilated left atrium 3. Moderate to severe mitral regurgitation 4. Mildly elevated right ventricular systolic pressure with significantly elevated right atrial pressures Findings Procedure Information Contrast agent, definity, is being given per protocol without apparent complications. Left Ventricle Normal left ventricular cavity size. There is normal left ventricular wall thickness. The left ventricular systolic function is moderate to severely decreased. The visually estimated ejection fraction is between 30-35%. Diastolic function is indeterminate on the basis of available data. Right Ventricle Normal right ventricular cavity size. Atria The left atrium is severely dilated. Interatrial shunt cannot be excluded. The right atrium was not well visualized. Aortic Valve The aortic valve was not well visualized. There is no aortic valve stenosis. The mean gradient is 3 mmHg. There is no aortic valve regurgitation. Mitral Valve There is moderate anterior and mild posterior mitral leaflet thickening. There is moderate to severe mitral valve regurgitation. There is no mitral valve stenosis. Pulmonic Valve The pulmonic valve was not well visualized. Tricuspid Valve There is trace tricuspid valve regurgitation. Significantly elevated right atrial pressure. Mild pulmonary hypertension is present. Great Vessels All visible segments of the aorta are normal in size. The pulmonary artery was not well visualized. Venous The inferior vena cava is mildly dilated and does not collapse with inspiration. Pericardium/Pleural The pericardium was not well visualized. Prior Study Comparison Changes noted compared to prior study dated: 05/18/2018. LV systolic function is significantly reduced. There is also mitral regurgitation noted. Right atrial pressures are significantly elevated Measurements 2D Linear Measurements IVSd: 0.86 0.6-0.9/0.6-1.0 cm LVIDd: 5.27 3.9-5.3/4.2-5.9 cm LVIDd Index: 2.96 2.4-3.2/2.2-3.1 cm/m2 LVIDs: 4.40 2.0-3.6 cm LVPWd: 0.88 0.7-1.1 cm LA Diam: 4.00 2.7-3.8/3.0-4.0 cm LAIDs Index: 2.25 1.5-2.3 cm/m2 LV Mass: 204.81 67-162/88-224 g LV Mass Index: 115.06 43-95/49-115 g/m2 LVOT Diam: 2.00 3.0+(-)1.3 cm 2D Systolic Function EF 4C: 40.10 >55% EF 2C: 29.70 >55% EF BiP: 34.50 >55% Mitral Valve MR Vol - PW Dopp: 43.21 MR VTI: 1.49 MR ERO: 29.00 MR Alias Abe: 0.47 MR RAD: 0.70 Aortic Valve AoV Pk Abe: 1.29 AoV Mn Abe: 0.80 AoV VTI: 0.23 AoV Pk Grad: 7.00 Aov Mn Grad: 3.00 JERRY Cont.VTI: 1.69 LVOT LVOT Pk Abe: 0.68 LVOT Mn Abe: 0.43 LVOT VTI: 0.12 LVOT Pk Grad: 2.00 LVOT Mn Grad: 1.00 LVOT Diam: 2.00 LVOT Area: 3.14 Right Ventricle TAPSE (mm): 22.60 TVS' Abe: 9.57 Tricuspid Valve TR Pk Abe: 2.57 TR Pk Grad: 26.00 RA Press: 15.00 RVSP: 41.00 Great Vessels Aorta Sinus of Valsalva: 2.84 2.0-3.5 cm Ao Asc: 3.00 2.1-3.4 cm Updated in Other Vendor System with Status of Final Florian Tolliver MD electronically signed on 05/02/2022 12:03:32 PM with status of Final
[2022-05-02 07:03] LABS: Anion Gap 14 (12-20); Blood Urea Nitrogen 42 mg/dL (9-16); Calcium 9.1 mg/dL (8.4-10.2); Carbon Dioxide 22 mmol/L (22-29); Chloride 107 mmol/L (96-108); Creatinine Clr Calc Pharmacy 25.3; Estimated Glomerular Filt Rate 28; Glucose Random 146 mg/dL (60-115); Magnesium 1.6 mg/dL (1.6-2.6); Potassium 4.7 mmol/L (3.3-5.1); Sodium 138 mmol/L (135-145)
[2022-05-02 07:05] LABS: B Type Natriuretic Peptide 1110 pg/mL (<100)
[2022-05-02] MEDS: Albuterol/Iprat 2.5/0.5MG 3 ML AMPUL.NEB INHALE (07:39)
[2022-05-02] MEDS: Fluticasone/Vilanterol 100/25 BLST.W.DEV 1 PUFF INHALE (07:45)
[2022-05-02 09:11] LABS: Glucose, Whole Blood 122 mg/dL (60-115)
--- NOTE | 2022-05-02 10:28 | ECG_ITS ---
Test Reason : sinus tach to afib Blood Pressure : / mmHG Vent. Rate : 137 BPM Atrial Rate : 000 BPM P-R Int : 000 ms QRS Dur : 078 ms QT Int : 312 ms P-R-T Axes : 000 059 013 degrees QTc Int : 471 ms Sinus tachycardia with Premature atrial complexes with Paroxysmal atrial tachycardia Nonspecific T wave abnormality Abnormal ECG When compared with ECG of 01-MAY-2022 09:58, Nonspecific T wave abnormality, worse in Inferior leads Referred By: Florian Tolliver Electronically Signed By:FLORIAN TOLLIVER MD
--- NOTE | 2022-05-02 10:47 | HO.PM.IMPN ---
Subjective Subjective Date of Service: 05/02/22 Interval History: feeling better this morning complaining of less shortness of breath, denies chest pain, no palpitation no other acute issues overnight tele monitor shows sinus tachycardia with frequent PACs. Review of Systems [employer] no headache, no dizziness GI no nausea no vomiting no dysuria, no frequency Review of Systems: Yes all other systems are reviewed and are negative Physical Exam Vital Signs: Vital Signs: Last Vital Signs Temp 97.5 F 05/02/22 08:00 Pulse 105 H 05/02/22 08:00 Resp 20 05/02/22 08:00 BP 135/57 L 05/02/22 08:00 Pulse Ox 98 05/02/22 08:00 O2 Del Method 05/02/22 08:00 BMI result Body Mass Index 37.5 Const: Other: General? awake kanika rt x3, no acute di stress.? HEENT;PER RLA, anicteric scl erae Neck? supple no JVD. CVS? regul ar rate rhythm, Re spiratory lungs? b ibasilar crackles, few expiratory wh eeze no use of acc essory muscles Gas trointestinal abdo men soft, nontende r, bowel sounds au dible, no guarding , no rigidity. Ex tremities no? yaw ing edema. Neuro n onfocal Skin no ra sh psych appropria te affect Objective Data Active Medications Acetaminophen (Acetaminophen 325 Mg Tablet) 650 mg PO Q6H PRN PRN Reason: Pain, Mild (Pain Scale 1-3) Albuterol/Ipratropium (Albuterol/Iprat 2.5/0.5mg 3 Ml Ampul.Neb) 3 ml INHALE RQ4H PRN PRN Reason: Shortness of Breath/Wheezing Last Admin: 05/01/22 23:28 Dose: 3 ml Documented By: EZRA Aspirin (Aspirin Enteric Coated 81 Mg Tablet.) 81 mg PO DAILY VANESSA Atorvastatin Calcium (Atorvastatin Calcium 80 Mg Tablet) 80 mg PO BEDTIME VANESSA Last Admin: 05/01/22 22:56 Dose: 80 mg Documented By: JOHNATHON Dextrose (Dextrose 50 % 25 Gm/50 Ml Syringe) 25 gm IVPUSH Q15M PRN; Protocol PRN Reason: per Hypoglycemia Standing Ord. Fluticasone/Vilanterol (Fluticasone/Vilanterol 100/25 Blst.W.Dev) 1 puff INHALE RDAILY [facility] [place] Last Admin: 05/02/22 07:45 Dose: 1 puff Documented By: MATHIEU Furosemide (Furosemide 40 Mg/4 Ml Vial) 40 mg IVPUSH BID@0900,1800 [facility] [place]; Protocol Glucose (Glucose Gel 15 Gm Gel..Gram.) 15 gm PO Q15M PRN; Protocol PRN Reason: per Hypoglycemia Standing Ord. Guaifenesin/Dextromethorphan (Guaifenesin Dm 100/10/5 Ml 5 Ml Syrup) 10 ml PO Q8H [facility] [place] Last Admin: 05/02/22 03:06 Dose: Not Given Documented By: ALBERTO Non-Admin Reason: Patient Asleep Heparin Sodium (Porcine) (Heparin Sodium,Porcine 5,000 Unit/Ml Vial) 5,000 unit SUBCUT Q8H [facility] [place] Last Admin: 05/02/22 06:15 Dose: 5,000 unit Documented By: ALBERTO Insulin Human Lispro (Insulin Lispro 100 Unit/Ml 3 Ml Vial) 0 unit SUBCUT QIDACHS [facility] [place]; Protocol Last Admin: 05/02/22 09:20 Dose: Not Given Documented By: JALIL Non-Admin Reason: No Insulin Coverage Levalbuterol HCl (Levalbuterol Hcl 1.25 Mg/0.5 Ml Vial.Neb) 1.25 mg INHALE Q6H [facility] [place] Last Admin: 05/02/22 08:16 Dose: Not Given Documented By: MATHIEU Non-Admin Reason: duo already given Melatonin (Melatonin 3 Mg Tablet) 3 mg PO BEDTIME PRN PRN Reason: Insomnia Montelukast Sodium (Montelukast Sodium 10 Mg Tablet) 10 mg PO BEDTIME [facility] [place] Last Admin: 05/01/22 22:56 Dose: 10 mg Documented By: JOHNATHON Non-Formulary Medication (Linagliptin [Tradjenta]) 1 tab PO DAILY [facility] [place] Ondansetron HCl (Ondansetron Hcl 4 Mg/2 Ml Vial) 4 mg IVPUSH Q8H PRN PRN Reason: Nausea and Vomiting Pharmacy Consult (Consult Rx Perform Med Rec) 1 each MISCELLANE ONCE PRN PRN Reason: Consult order Sodium Chloride (0.9 % Sodium Chloride Flush 3 Ml Syringe) 3 ml IVFLUSH QSHIFT [facility] [place] Last Admin: 05/02/22 00:39 Dose: Not Given Documented By: ALBERTO Non-Admin Reason: Previously Administered Trazodone HCl (Trazodone Hcl 50 Mg Tablet) 50 mg PO BEDTIME [facility] [place] Last Admin: 05/01/22 22:56 Dose: 50 mg Documented By: JOHNATHON Vitamin D (Cholecalciferol (Vitamin D3) 25 Mcg Tablet) 25 mcg PO DAILY [facility] [place] Labs CBC & Chem 7: 05/01/22 11:01 05/02/22 06:28 Labs: Laboratory Results - last 24 hr 05/01/22 05/01/22 05/01/22 11:01 11:01 11:01 MCV 94.2 MCH 29.2 MCHC 31.0 RDW 13.3 Plt Count 367 MPV 9.5 Immature Gran % (Auto) 1.1 H Neut % (Auto) 75.8 H Lymph % (Auto) 14.1 L Morton % (Auto) 7.7 Eos % (Auto) 0.7 Baso % (Auto) 0.6 Lymph # (Auto) 1.2 Morton # (Auto) 0.7 Eos # (Auto) 0.1 Baso # (Auto) 0.1 Abs Immat Gran (auto) 0.10 H Absolute Neuts (auto) 6.6 Absolute Nucleated RBC 0.000 Nucleated RBC % (auto) 0.0 D-Dimer High Sensitivty 1425 VBG pH VBG pCO2 VBG pO2 VBG HCO3 VBG O2 Saturation VBG Base Excess Anion Gap 14 Estim Creat Clear Calc 27.3 Estimated GFR 31 POC Glucose Random Glucose 139 H Calcium 8.8 Magnesium 1.6 Total Bilirubin 0.2 AST 25 D ALT 28 Alkaline Phosphatase 60 Troponin I High Sens B-Natriuretic Peptide Total Protein 6.3 L Albumin 3.5 Respiratory Panel Santos Adenovirus (Rapid PCR) B.pert (TEM-PCR) B.parapertussis DNA PCR C. pneumoniae DNA (PCR) Coronavirus OC43 (PCR) Coronavirus HKU1 (PCR) Coronavirus 229E (PCR) Coronavirus NL63 (PCR) Human Metapneumovir PCR Influenza A (RT-PCR) Influenza B (RT-PCR) M. pneumoniae (PCR) Parainfluenza 1 (PCR) Parainfluenza 2 (PCR) Parainfluenza 3 (PCR) Parainfluenza 4 (PCR) RSV (PCR) Entero/Rhino (PCR) SARS-CoV-2 RNA (RT-PCR) 05/01/22 05/01/22 05/01/22 11:01 11:01 11:40 MCV MCH MCHC RDW Plt Count MPV Immature Gran % (Auto) Neut % (Auto) Lymph % (Auto) Morton % (Auto) Eos % (Auto) Baso % (Auto) Lymph # (Auto) Morton # (Auto) Eos # (Auto) Baso # (Auto) Abs Immat Gran (auto) Absolute Neuts (auto) Absolute Nucleated RBC Nucleated RBC % (auto) D-Dimer High Sensitivty VBG pH 7.41 VBG pCO2 32 VBG pO2 58 VBG HCO3 21 L VBG O2 Saturation 87.0 VBG Base Excess -2.9 Anion Gap Estim Creat Clear Calc Estimated GFR POC Glucose Random Glucose Calcium Magnesium Total Bilirubin AST ALT Alkaline Phosphatase Troponin I High Sens 28.8 H B-Natriuretic Peptide 659 H Total Protein Albumin Respiratory Panel Santos See Note Adenovirus (Rapid PCR) Not Detected B.pert (TEM-PCR) Not Detected B.parapertussis DNA PCR Not Detected C. pneumoniae DNA (PCR) Not Detected Coronavirus OC43 (PCR) Not Detected Coronavirus HKU1 (PCR) Not Detected Coronavirus 229E (PCR) Not Detected Coronavirus NL63 (PCR) Not Detected Human Metapneumovir PCR Not Detected Influenza A (RT-PCR) Not Detected Influenza B (RT-PCR) Not Detected M. pneumoniae (PCR) Not Detected Parainfluenza 1 (PCR) Not Detected Parainfluenza 2 (PCR) Not Detected Parainfluenza 3 (PCR) Not Detected Parainfluenza 4 (PCR) Not Detected RSV (PCR) Not Detected Entero/Rhino (PCR) Not Detected SARS-CoV-2 RNA (RT-PCR) Not Detected 05/01/22 05/01/22 05/02/22 18:19 22:56 06:28 MCV MCH MCHC RDW Plt Count MPV Immature Gran % (Auto) Neut % (Auto) Lymph % (Auto) Morton % (Auto) Eos % (Auto) Baso % (Auto) Lymph # (Auto) Morton # (Auto) Eos # (Auto) Baso # (Auto) Abs Immat Gran (auto) Absolute Neuts (auto) Absolute Nucleated RBC Nucleated RBC % (auto) D-Dimer High Sensitivty VBG pH VBG pCO2 VBG pO2 VBG HCO3 VBG O2 Saturation VBG Base Excess Anion Gap 14 Estim Creat Clear Calc 25.3 Estimated GFR 28 POC Glucose 166 H Random Glucose 146 H Calcium 9.1 Magnesium 1.6 Total Bilirubin AST ALT Alkaline Phosphatase Troponin I High Sens 24.5 H B-Natriuretic Peptide Total Protein Albumin Respiratory Panel Santos Adenovirus (Rapid PCR) B.pert (TEM-PCR) B.parapertussis DNA PCR C. pneumoniae DNA (PCR) Coronavirus OC43 (PCR) Coronavirus HKU1 (PCR) Coronavirus 229E (PCR) Coronavirus NL63 (PCR) Human Metapneumovir PCR Influenza A (RT-PCR) Influenza B (RT-PCR) M. pneumoniae (PCR) Parainfluenza 1 (PCR) Parainfluenza 2 (PCR) Parainfluenza 3 (PCR) Parainfluenza 4 (PCR) RSV (PCR) Entero/Rhino (PCR) SARS-CoV-2 RNA (RT-PCR) 05/02/22 05/02/22 06:28 09:08 MCV MCH MCHC RDW Plt Count MPV Immature Gran % (Auto) Neut % (Auto) Lymph % (Auto) Morton % (Auto) Eos % (Auto) Baso % (Auto) Lymph # (Auto) Morton # (Auto) Eos # (Auto) Baso # (Auto) Abs Immat Gran (auto) Absolute Neuts (auto) Absolute Nucleated RBC Nucleated RBC % (auto) D-Dimer High Sensitivty VBG pH VBG pCO2 VBG pO2 VBG HCO3 VBG O2 Saturation VBG Base Excess Anion Gap Estim Creat Clear Calc Estimated GFR POC Glucose 122 H Random Glucose Calcium Magnesium Total Bilirubin AST ALT Alkaline Phosphatase Troponin I High Sens B-Natriuretic Peptide 1110 H Total Protein Albumin Respiratory Panel Santos Adenovirus (Rapid PCR) B.pert (TEM-PCR) B.parapertussis DNA PCR C. pneumoniae DNA (PCR) Coronavirus OC43 (PCR) Coronavirus HKU1 (PCR) Coronavirus 229E (PCR) Coronavirus NL63 (PCR) Human Metapneumovir PCR Influenza A (RT-PCR) Influenza B (RT-PCR) M. pneumoniae (PCR) Parainfluenza 1 (PCR) Parainfluenza 2 (PCR) Parainfluenza 3 (PCR) Parainfluenza 4 (PCR) RSV (PCR) Entero/Rhino (PCR) SARS-CoV-2 RNA (RT-PCR) Assessment and Plan (1) COPD (chronic obstructive pulmonary disease): Status: Acute (2) Anemia: Status: Acute (3) Acute diastolic CHF (congestive heart failure): Status: Acute Plan 76-year-old female patient with past medical history of CHF, normocytic normochromic anemia, hypertension, chronic kidney disease stage 3 presented to [facility] due to symptoms of shortness of breath of few days duration associated with cough productive of yellow phlegm orthopnea and leg swelling. ?Acute on chronic diastolic CHF exacerbation ?feels better this a.m. less shortness of breath,mild CHF on chest x-ray,neg 400 ml bnp bumped to 1110 from 659 ?cont IV Lasix 40 mg bid follow BNP, BMP and magnesium ?Daily weight lilian/os , patient declined low salt /cardiac diet ?follow echocardiogram/ cardiology input sinus tachycardia with frequent PACs, 1 dose of metoprolol 5 mg IV given will discuss with Cardiology place patient on low-dose beta-blockers, had recent Holter monitor that showed no long arrhythmia but showed PACs and PVCs seen by Cardiology and it appears that patient has paroxysmal bursts of atrial fibrillation Dr. Ayala recommends metoprolol 12.5 mg q.6 hours and maximize as tolerated, will place on anticoagulation Eliquis 5 mg b.i.d. ?elevated troponin but flat no cp, follow echo ?acute COPD exacerbation ?sob improved change duoneb updraft to xopenex due to sinus tachycardia,cont. cough medication and low-dose steroid ?continue home inhalers ?acute on chronic normocytic anemia likely anemia of kidney disease, Procrit given ,follow stool guaiac, previous iron studies within normal range. ?obesity bmi 31-36 recommend low-calorie diet, since contributing to other medical issues like diabetes, hyperlipidemia and CHF ?diabetes mellitus stable blood sugar,hold metformin , on insulin sliding scale, patient refusing to follow diabetic or low-salt diet will place on regular diet ?Hyperlipidemia on statin ? chronic kidney disease stage 3 creat around baseline ?code status full code ?DVT prophylaxis with heparin subQ ?patient need continued inpatient hospitalization due to acute on chronic diastolic heart failure requiring IV diuretics require further workup including echocardiogram and cardiology follow up. Quality Stroke Does the patient have a stroke diagnosis?: No VTE Prior VTE?: No VTE Risk Level:: Medical - moderate - high VTE Device Contraindication: Treatment Not Indicated VTE Drug Contraindication: N/A - Med Ordered
[2022-05-02] MEDS: 0.9 % Sodium Chloride Flush 3 ML SYRINGE IVFLUSH ×3 (10:50→22:18)
--- NOTE | 2022-05-02 10:53 | P.CONCA_ITS ---
History of Present Illness History of Present Illness Date of Service: 05/02/22 Requesting physician: Carroll Andino Consult reason: congestive heart failure Chief complaint: Shortness of breath Narrative: I was requested to see Meena in cardiology consultation today for decompensated congestive heart failure. Com minute a 76-year-old woman with prior history of COPD, wheelchair-bound, recent admission with COVID. For need about 2 weeks ago she started noticing increasing shortness of breath along with symptoms suggestive of orthopnea and bilateral leg swelling. She came to the hospital and was noted to have some bronchospastic airway disease but also noted to have elevated BNP and findings consistent with congestive heart failure. She was diuresed and since yesterday has a negative balance charted about -400 cc. She says she feels about 30% better since yesterday. She also has some chest pressure. She carries a diagnosis of prior heart failure, chronic anemia, chronic kidney disease, obstructive sleep apnea, hypertension and diabetes. No history of coronary artery disease. Patient noted to have tachycardia and appe ars to have a runs of sinus tachycardia with PACs were also short burst of atrial fibrillation by telemetry and by EKG. Review of Systems Constitutional: Constitutional: Reports lethargy and Reports weakness Eyes: Eyes: Reports no additional eye complaints Cardiovascular: Cardiovascular: Reports chest pain at rest, Denies syncope, Reports leg edema, Denies lightheadedness, Denies Loss of Consciousness, Denies palpitations, Reports dyspnea and Reports orthopnea Respiratory: Respiratory: Reports dyspnea Gastrointestinal: Gastrointestinal: Reports bloating Genitourinary: Genitourinary: Reports no additional female genitourinary complaints Musculoskeletal: Musculoskeletal: Reports no additional musculoskeletal complaints Integumentary/Breasts: Skin/Breast: Reports system reviewed and no additional complaints, except as docu Neurologic: Reports system reviewed and no additional complaints, except as documented, Denies syncope and Reports weakness Psychiatric: Psychiatric: Reports no additional psychiatric complaints Endocrine: Endocrine: Denies palpitations Hematologic/Lymphatic: Hematologic/Lymphatic: Reports no additional hematologic/lymphatic complaints Allergic/Immunologic: Allergic/Immunologic: Reports no additional allergic/immunologic complaints [facility] Past Medical History Medical History Anxiety Asthma CHF (congestive heart failure) COPD (chronic obstructive pulmonary disease) Depression Diabetes mellitus, type 2 Hypertension Renal insufficiency Family History Family History Father Cancer Mother Diabetes Daughter Myocardial infarction Surgical History Surgical History H/O: hysterectomy History of tubal ligation Social History Social History Household Members: None Housing: Apartment Do you presently have visiting nurse or other home services: No Alcohol intake: never Patient Tobacco Use Status: Never used Tobacco e-Cigarette/Vaping Use: Never Used Second Hand Smoke Exposure: No Advance Directives Date on File: 11/09/00 service: No Current occupational status: disabled Cognitive needs: Yes Hearing needs: No Vision needs: No Meds Allergies Allergy/AdvReac Type Severity Reaction Status Date / Time fish derived [FISH] Allergy Mild RASH, Verified 04/29/22 14:06 ITCHY, SWELLING linagliptin [Tradjenta] AdvReac Mild rash Verified 04/29/22 14:06 Active Medications: Current Medications Acetaminophen (Acetaminophen 325 Mg Tablet) 650 mg PO Q6H PRN PRN Reason: Pain, Mild (Pain Scale 1-3) Albuterol/Ipratropium (Albuterol/Iprat 2.5/0.5mg 3 Ml Ampul.Neb) 3 ml INHALE RQ4H PRN PRN Reason: Shortness of Breath/Wheezing Last Admin: 05/01/22 23:28 Dose: 3 ml Aspirin (Aspirin Enteric Coated 81 Mg Tablet.) 81 mg PO DAILY [facility] Atorvastatin Calcium (Atorvastatin Calcium 80 Mg Tablet) 80 mg PO BEDTIME [facility] Last Admin: 05/01/22 22:56 Dose: 80 mg Dextrose (Dextrose 50 % 25 Gm/50 Ml Syringe) 25 gm IVPUSH Q15M PRN; Protocol PRN Reason: per Hypoglycemia Standing Ord. Fluticasone/Vilanterol (Fluticasone/Vilanterol 100/25 Blst.W.Dev) 1 puff INHALE RDAILY [facility] Last Admin: 05/02/22 07:45 Dose: 1 puff Furosemide (Furosemide 40 Mg/4 Ml Vial) 40 mg IVPUSH BID@0900,1800 [facility]; Protocol Glucose (Glucose Gel 15 Gm Gel..Gram.) 15 gm PO Q15M PRN; Protocol PRN Reason: per Hypoglycemia Standing Ord. Guaifenesin/Dextromethorphan (Guaifenesin Dm 100/10/5 Ml 5 Ml Syrup) 10 ml PO Q8H [facility] Last Admin: 05/02/22 03:06 Dose: Not Given Heparin Sodium (Porcine) (Heparin Sodium,Porcine 5,000 Unit/Ml Vial) 5,000 unit SUBCUT Q8H [facility] Last Admin: 05/02/22 06:15 Dose: 5,000 unit Insulin Human Lispro (Insulin Lispro 100 Unit/Ml 3 Ml Vial) 0 unit SUBCUT QIDACHS [facility]; Protocol Last Admin: 05/02/22 09:20 Dose: Not Given Levalbuterol HCl (Levalbuterol Hcl 1.25 Mg/0.5 Ml Vial.Neb) 1.25 mg INHALE Q6H [facility] Last Admin: 05/02/22 08:16 Dose: Not Given Melatonin (Melatonin 3 Mg Tablet) 3 mg PO BEDTIME PRN PRN Reason: Insomnia Montelukast Sodium (Montelukast Sodium 10 Mg Tablet) 10 mg PO BEDTIME [facility] Last Admin: 05/01/22 22:56 Dose: 10 mg Non-Formulary Medication (Linagliptin [Tradjenta]) 1 tab PO DAILY [facility] Ondansetron HCl (Ondansetron Hcl 4 Mg/2 Ml Vial) 4 mg IVPUSH Q8H PRN PRN Reason: Nausea and Vomiting Pharmacy Consult (Consult Rx Perform Med Rec) 1 each MISCELLANE ONCE PRN PRN Reason: Consult order Sodium Chloride (0.9 % Sodium Chloride Flush 3 Ml Syringe) 3 ml IVFLUSH QSHIFT [facility] Last Admin: 05/02/22 10:50 Dose: 3 ml Trazodone HCl (Trazodone Hcl 50 Mg Tablet) 50 mg PO BEDTIME [facility] Last Admin: 05/01/22 22:56 Dose: 50 mg Vitamin D (Cholecalciferol (Vitamin D3) 25 Mcg Tablet) 25 mcg PO DAILY [facility] Home Medications Medication Instructions Recorded Confirmed Last Taken Type blood glucose control high and low #1 ea 01/31/21 04/02/22 03/28/22 History solution blood sugar diagnostic #10 ea 01/31/21 04/02/22 03/28/22 History blood-glucose meter #1 ea 01/31/21 04/02/22 03/28/22 History lancets 30 gauge #100 ea 01/31/21 04/02/22 03/28/22 History lancing device #1 ea 01/31/21 04/02/22 03/28/22 History atorvastatin 80 mg tablet 80 mg PO BEDTIME 03/28/22 05/01/22 03/27/22 History linagliptin 5 mg tablet (Tradjenta) 1 tab PO DAILY 03/28/22 05/01/22 03/28/22 History trazodone 50 mg tablet 1 tab PO BEDTIME 03/28/22 05/01/22 03/27/22 History fluticasone 250 mcg-salmeterol 50 1 inh inhalation BID 04/02/22 05/01/22 Unknown History mcg/dose blistr powdr for inhalation (Advair Diskus) aspirin 81 mg tablet,delayed 81 mg PO DAILY 05/01/22 05/01/22 Unknown History release montelukast 10 mg tablet 10 mg PO BEDTIME 05/01/22 05/01/22 Unknown History Physical Exam Vital Signs: Vital Signs: Last Vital Signs Temp 97.5 F 05/02/22 08:00 Pulse 112 H 05/02/22 10:51 Resp 20 05/02/22 08:00 BP 140/65 H 05/02/22 10:51 Pulse Ox 98 05/02/22 08:00 O2 Del Method 05/02/22 08:00 BMI result Body Mass Index 37.5 Const: General: cooperative, alert, awake and in distress mild and respiratory Nutritional Appearance: obese Orientation/consciousness: patient oriented x3 HEENT: Head: Yes normocephalic and Yes atraumatic Neck: Neck: Yes trachea midline, Yes supple and Yes JVD Resp: Effort & Inspection: normal respiratory effort Auscultation: crackles bilateral at the base and diminished lung sounds Cardio: Jugular venous distension: JVD Rate: tachycardic Rhythm: abnormal rhythm irregularly irregular Heart sounds: S1 normal heart sound present, S2 normal heart sound present, no click, no gallops and no murmurs GI: Inspection: Yes distended Auscultation: normal bowel sounds Skin: General skin exam: no rashes or lesions noted Neuro: General: patient oriented x3 and no focal motor deficits Extrem: General: No clubbing, No cyanosis and Yes edema Objective Labs and Meds Result diagrams: 05/01/22 11:01 05/02/22 06:28 Lab results: Laboratory Results - last 24 hr 05/01/22 05/01/22 05/01/22 11:01 11:01 11:01 WBC 8.8 RBC 2.74 L Hgb 8.0 L Hct 25.8 L MCV 94.2 MCH 29.2 MCHC 31.0 RDW 13.3 Plt Count 367 MPV 9.5 Immature Gran % (Auto) 1.1 H Neut % (Auto) 75.8 H Lymph % (Auto) 14.1 L Calloway % (Auto) 7.7 Eos % (Auto) 0.7 Baso % (Auto) 0.6 Lymph # (Auto) 1.2 Calloway # (Auto) 0.7 Eos # (Auto) 0.1 Baso # (Auto) 0.1 Abs Immat Gran (auto) 0.10 H Absolute Neuts (auto) 6.6 Absolute Nucleated RBC 0.000 Nucleated RBC % (auto) 0.0 D-Dimer High Sensitivty 1425 VBG pH VBG pCO2 VBG pO2 VBG HCO3 VBG O2 Saturation VBG Base Excess Sodium 136 Potassium 4.7 Chloride 108 Carbon Dioxide 19 L Anion Gap 14 BUN 37 H Creatinine 1.60 H Estim Creat Clear Calc 27.3 Estimated GFR 31 POC Glucose Random Glucose 139 H Calcium 8.8 Magnesium 1.6 Total Bilirubin 0.2 AST 25 D ALT 28 Alkaline Phosphatase 60 Troponin I High Sens B-Natriuretic Peptide Total Protein 6.3 L Albumin 3.5 Respiratory Panel Santos Adenovirus (Rapid PCR) B.pert (TEM-PCR) B.parapertussis DNA PCR C. pneumoniae DNA (PCR) Coronavirus OC43 (PCR) Coronavirus HKU1 (PCR) Coronavirus 229E (PCR) Coronavirus NL63 (PCR) Human Metapneumovir PCR Influenza A (RT-PCR) Influenza B (RT-PCR) M. pneumoniae (PCR) Parainfluenza 1 (PCR) Parainfluenza 2 (PCR) Parainfluenza 3 (PCR) Parainfluenza 4 (PCR) RSV (PCR) Entero/Rhino (PCR) SARS-CoV-2 RNA (RT-PCR) 05/01/22 05/01/22 05/01/22 11:01 11:01 11:40 WBC RBC Hgb Hct MCV MCH MCHC RDW Plt Count MPV Immature Gran % (Auto) Neut % (Auto) Lymph % (Auto) Calloway % (Auto) Eos % (Auto) Baso % (Auto) Lymph # (Auto) Calloway # (Auto) Eos # (Auto) Baso # (Auto) Abs Immat Gran (auto) Absolute Neuts (auto) Absolute Nucleated RBC Nucleated RBC % (auto) D-Dimer High Sensitivty VBG pH 7.41 VBG pCO2 32 VBG pO2 58 VBG HCO3 21 L VBG O2 Saturation 87.0 VBG Base Excess -2.9 Sodium Potassium Chloride Carbon Dioxide Anion Gap BUN Creatinine Estim Creat Clear Calc Estimated GFR POC Glucose Random Glucose Calcium Magnesium Total Bilirubin AST ALT Alkaline Phosphatase Troponin I High Sens 28.8 H B-Natriuretic Peptide 659 H Total Protein Albumin Respiratory Panel Santos See Note Adenovirus (Rapid PCR) Not Detected B.pert (TEM-PCR) Not Detected B.parapertussis DNA PCR Not Detected C. pneumoniae DNA (PCR) Not Detected Coronavirus OC43 (PCR) Not Detected Coronavirus HKU1 (PCR) Not Detected Coronavirus 229E (PCR) Not Detected Coronavirus NL63 (PCR) Not Detected Human Metapneumovir PCR Not Detected Influenza A (RT-PCR) Not Detected Influenza B (RT-PCR) Not Detected M. pneumoniae (PCR) Not Detected Parainfluenza 1 (PCR) Not Detected Parainfluenza 2 (PCR) Not Detected Parainfluenza 3 (PCR) Not Detected Parainfluenza 4 (PCR) Not Detected RSV (PCR) Not Detected Entero/Rhino (PCR) Not Detected SARS-CoV-2 RNA (RT-PCR) Not Detected 05/01/22 05/01/22 05/02/22 18:19 22:56 06:28 WBC RBC Hgb Hct MCV MCH MCHC RDW Plt Count MPV Immature Gran % (Auto) Neut % (Auto) Lymph % (Auto) Calloway % (Auto) Eos % (Auto) Baso % (Auto) Lymph # (Auto) Calloway # (Auto) Eos # (Auto) Baso # (Auto) Abs Immat Gran (auto) Absolute Neuts (auto) Absolute Nucleated RBC Nucleated RBC % (auto) D-Dimer High Sensitivty VBG pH VBG pCO2 VBG pO2 VBG HCO3 VBG O2 Saturation VBG Base Excess Sodium 138 Potassium 4.7 Chloride 107 Carbon Dioxide 22 Anion Gap 14 BUN 42 H Creatinine 1.75 H Estim Creat Clear Calc 25.3 Estimated GFR 28 POC Glucose 166 H Random Glucose 146 H Calcium 9.1 Magnesium 1.6 Total Bilirubin AST ALT Alkaline Phosphatase Troponin I High Sens 24.5 H B-Natriuretic Peptide Total Protein Albumin Respiratory Panel Santos Adenovirus (Rapid PCR) B.pert (TEM-PCR) B.parapertussis DNA PCR C. pneumoniae DNA (PCR) Coronavirus OC43 (PCR) Coronavirus HKU1 (PCR) Coronavirus 229E (PCR) Coronavirus NL63 (PCR) Human Metapneumovir PCR Influenza A (RT-PCR) Influenza B (RT-PCR) M. pneumoniae (PCR) Parainfluenza 1 (PCR) Parainfluenza 2 (PCR) Parainfluenza 3 (PCR) Parainfluenza 4 (PCR) RSV (PCR) Entero/Rhino (PCR) SARS-CoV-2 RNA (RT-PCR) 05/02/22 05/02/22 06:28 09:08 WBC RBC Hgb Hct MCV MCH MCHC RDW Plt Count MPV Immature Gran % (Auto) Neut % (Auto) Lymph % (Auto) Calloway % (Auto) Eos % (Auto) Baso % (Auto) Lymph # (Auto) Calloway # (Auto) Eos # (Auto) Baso # (Auto) Abs Immat Gran (auto) Absolute Neuts (auto) Absolute Nucleated RBC Nucleated RBC % (auto) D-Dimer High Sensitivty VBG pH VBG pCO2 VBG pO2 VBG HCO3 VBG O2 Saturation VBG Base Excess Sodium Potassium Chloride Carbon Dioxide Anion Gap BUN Creatinine Estim Creat Clear Calc Estimated GFR POC Glucose 122 H Random Glucose Calcium Magnesium Total Bilirubin AST ALT Alkaline Phosphatase Troponin I High Sens B-Natriuretic Peptide 1110 H Total Protein Albumin Respiratory Panel Santos Adenovirus (Rapid PCR) B.pert (TEM-PCR) B.parapertussis DNA PCR C. pneumoniae DNA (PCR) Coronavirus OC43 (PCR) Coronavirus HKU1 (PCR) Coronavirus 229E (PCR) Coronavirus NL63 (PCR) Human Metapneumovir PCR Influenza A (RT-PCR) Influenza B (RT-PCR) M. pneumoniae (PCR) Parainfluenza 1 (PCR) Parainfluenza 2 (PCR) Parainfluenza 3 (PCR) Parainfluenza 4 (PCR) RSV (PCR) Entero/Rhino (PCR) SARS-CoV-2 RNA (RT-PCR) Imaging Radiologist's impression: Impressions Chest X-Ray 05/01/22 09:53 IMPRESSION: Mild CHF, however improved when compared to 03/28/2022. On 08/17/2020, chest radiograph was essentially normal. Pulmonary Perfusion Imaging 05/01/22 13:40 IMPRESSION: Very low probability of pulmonary embolism. Assessment and Plan (1) Acute diastolic CHF (congestive heart failure): Status: Acute Acute decompensated heart failure. Unclear whether this is diastolic or systolic. Will need an echocardiogram for now. Continue IV diuresis, clinically still appears to be fluid overloaded as well as having pulmonary rales. Strict intake and output chart needs to be pursued. Continue current diuretic regimen with 40 b.i.d. of Lasix IV push. Low-salt diet. Blood pressure is optimized at this point time. Will control of fast heart rate. Render renal function as well as BNP. Add Jardiance 10 mg to her regimen. Continue supportive care with oxygen supplementation. Continue treat her COPD exacerbation. Will continue to monitor and follow her. Consider transfusing her to maintain hematocrit over 30, followed by IV Lasix 20 mg. (2) Paroxysmal atrial fibrillation: Status: Acute Episodes of tachycardia noted on telemetry monitoring. It appeared to be paroxysmal burst of atrial fibrillation at this point time. Start on metoprolol 12.5 mg q.6 hours and maximize as tolerated. Given her risk factor should also be on oral anticoagulation therapy unless there obvious contraindication. Consider Eliquis 5 mg b.i.d. Will follow with you Procedures Date of Service Date of Service: 05/02/22
[2022-05-02] MEDS: Furosemide 40 MG/4 ML VIAL IVPUSH ×2 (10:58→16:57)
[2022-05-02] MEDS: guaiFENesin DM 100/10/5 ML 5 ML SYRUP 10 ML PO ×2 (10:58→16:57)
[2022-05-02] MEDS: Cholecalciferol (Vitamin D3) 25 MCG TABLET PO (10:58)
[2022-05-02] MEDS: Aspirin Enteric Coated 81 MG TABLET.DR PO (10:58)
[2022-05-02] MEDS: Metoprolol Tartrate 5 MG/5 ML VIAL IVPUSH (10:58)
[2022-05-02 11:21] LABS: Glucose, Whole Blood 151 mg/dL (60-115)
--- NOTE | 2022-05-02 11:49 | MHC.CLN ---
RE: CONSULT PT WITH INCREASED NUTRITION RISK R/T PRESSURE INJURY DIET RX: REGULAR-PT REFUSES TO FOLLOW 2GM NA DIABETIC DIET DESPITE DISCUSSION WITH MD RECOMMEND MONITOR PO INTAKE IF POOR; RECOMMEND ADDING GLUCERNA BID TO INCREASE KCALS AND PROMOTE WOUND HEALING SEE ALSO FULL CLINICAL NUTRITION ASSESSMENT
[2022-05-02] MEDS: predniSONE 10 MG TABLET PO (12:27)
[2022-05-02] MEDS: Insulin Lispro 100 UNIT/ML 3 ML VIAL SUBCUT ×3 (12:28→22:17)
[2022-05-02 15:57] LABS: Glucose, Whole Blood 163 mg/dL (60-115)
--- NOTE | 2022-05-02 16:21 | MHC.CM.PN ---
IMM 05/02/22 Female 76 DX SOB. She lives with her son. She states that she has a HCP. She is documented as having a HCP but t/w was not able to locate the document in her EMR. She uses a walker in the home. A transport wc for out of the home. 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 DP home with resumption of [employer]. Her son will provide transportation.
[2022-05-02 20:01] LABS: Glucose, Whole Blood 199 mg/dL (60-115)
[2022-05-02] MEDS: traZODone HCL 50 MG TABLET PO (22:18)
[2022-05-02] MEDS: Atorvastatin Calcium 80 MG TABLET PO (22:18)
[2022-05-02] MEDS: Montelukast Sodium 10 MG TABLET PO (22:18)
[2022-05-03] VITALS (8 sets, daily range): BP systolic 117–140; BP diastolic 57–79; PULSE 86–100; RESP 18–20; TEMP 36.4–36.9; O2SAT 92–99
[2022-05-03] MEDS: guaiFENesin DM 100/10/5 ML 5 ML SYRUP 10 ML PO ×3 (02:24→18:30)
[2022-05-03] MEDS: Heparin Sodium,Porcine 5,000 UNIT/ML VIAL 5000 UNIT SUBCUT ×3 (05:57→20:42)
[2022-05-03 07:12] LABS: Hematocrit 24.8 % (37.0-47.0); Hemoglobin 7.7 g/dl (12.0-16.0); Mean Corpuscular Hemoglobin 28.7 pg (27.0-33.0); Mean Corpuscular Volume 92.5 fL (80.0-98.0); Mean Platelet Volume 9.6 fL (9.4-12.3); NRBC Pct Auto 0.3 /100WBC (0.0-0.2); Platelet Count 383 X10*3/uL (160-400); Red Blood Count 2.68 X10*6/uL (4.20-5.50); Red Cell Distribution Width 13.3 % (11.0-16.0)
[2022-05-03 07:31] LABS: Anion Gap 14 (12-20); Blood Urea Nitrogen 50 mg/dL (9-16); Carbon Dioxide 23 mmol/L (22-29); Chloride 107 mmol/L (96-108); Creatinine Clr Calc Pharmacy 26.9; Estimated Glomerular Filt Rate 30; Glucose Random 103 mg/dL (60-115); Potassium 4.5 mmol/L (3.3-5.1); Sodium 139 mmol/L (135-145)
[2022-05-03 07:36] LABS: B Type Natriuretic Peptide 606 pg/mL (<100)
[2022-05-03 07:57] LABS: Glucose, Whole Blood 90 mg/dL (60-115)
[2022-05-03] MEDS: 0.9 % Sodium Chloride Flush 3 ML SYRINGE IVFLUSH ×3 (09:17→20:43)
[2022-05-03] MEDS: Cholecalciferol (Vitamin D3) 25 MCG TABLET PO (09:17)
[2022-05-03] MEDS: Furosemide 40 MG/4 ML VIAL IVPUSH ×2 (09:17→18:30)
[2022-05-03] MEDS: Metoprolol Tartrate 25 MG TABLET PO ×2 (09:18→20:42)
[2022-05-03] MEDS: Aspirin Enteric Coated 81 MG TABLET.DR PO (09:18)
[2022-05-03] MEDS: predniSONE 10 MG TABLET PO (09:18)
[2022-05-03 11:26] LABS: Glucose, Whole Blood 153 mg/dL (60-115)
[2022-05-03] MEDS: Insulin Lispro 100 UNIT/ML 3 ML VIAL SUBCUT ×2 (11:54→16:48)
--- NOTE | 2022-05-03 12:24 | P.PNIM_ITS ---
Subjective Subjective Date of Service: 05/03/22 <Coral Harris NP - Last Filed: 05/03/22 12:30> 06/03/22 <Carroll Andino MD - Last Filed: 06/03/22 08:50> Review of Systems Follow up SOB still sob but better <Coral Harris NP - Last Filed: 05/03/22 12:30> Physical Exam Vital Signs: Vital Signs: Last Vital Signs Temp 98.5 F 05/03/22 11:45 Pulse 92 05/03/22 11:45 Resp 18 05/03/22 11:45 BP 117/65 05/03/22 11:45 Pulse Ox 98 05/03/22 11:45 O2 Del Method 05/03/22 11:45 BMI result Body Mass Index 37.5 <Coral Harris NP - Last Filed: 05/03/22 12:30> Appearing in no acute distress no JVD noted lung sounds rales bilateral heart regular rate rhythm, clear S1, S2 positive bowel sounds, abdomen is soft, nontender neuro patient is alert x3, no focal deficits <Coral Harris NP - Last Filed: 05/03/22 12:30> Objective Data Active Medications Acetaminophen (Acetaminophen 325 Mg Tablet) 650 mg PO Q6H PRN PRN Reason: Pain, Mild (Pain Scale 1-3) Albuterol/Ipratropium (Albuterol/Iprat 2.5/0.5mg 3 Ml Ampul.Neb) 3 ml INHALE RQ4H PRN PRN Reason: Shortness of Breath/Wheezing Last Admin: 05/01/22 23:28 Dose: 3 ml Documented By: EZRA Aspirin (Aspirin Enteric Coated 81 Mg Tablet.Dr) 81 mg PO DAILY [facility] Last Admin: 05/03/22 09:18 Dose: 81 mg Documented By: KYLER Atorvastatin Calcium (Atorvastatin Calcium 80 Mg Tablet) 80 mg PO BEDTIME [facility] Last Admin: 05/02/22 22:18 Dose: 80 mg Documented By: MICHAEL Dextrose (Dextrose 50 % 25 Gm/50 Ml Syringe) 25 gm IVPUSH Q15M PRN; Protocol PRN Reason: per Hypoglycemia Standing Ord. Fluticasone/Vilanterol (Fluticasone/Vilanterol 100/25 Blst.W.Dev) 1 puff INHALE RDAILY [facility] Last Admin: 05/03/22 07:35 Dose: Not Given Documented By: MATHIEU Non-Admin Reason: Med Not Available Furosemide (Furosemide 40 Mg/4 Ml Vial) 40 mg IVPUSH BID@0900,1800 [facility]; Protocol Last Admin: 05/03/22 09:17 Dose: 40 mg Documented By: KYLER Glucose (Glucose Gel 15 Gm Gel..Gram.) 15 gm PO Q15M PRN; Protocol PRN Reason: per Hypoglycemia Standing Ord. Guaifenesin/Dextromethorphan (Guaifenesin Dm 100/10/5 Ml 5 Ml Syrup) 10 ml PO Q8H [facility] Last Admin: 05/03/22 09:17 Dose: 10 ml Documented By: KYLER Heparin Sodium (Porcine) (Heparin Sodium,Porcine 5,000 Unit/Ml Vial) 5,000 unit SUBCUT Q8H [facility] Last Admin: 05/03/22 05:57 Dose: 5,000 unit Documented By: MICHAEL Insulin Human Lispro (Insulin Lispro 100 Unit/Ml 3 Ml Vial) 0 unit SUBCUT QIDACHS [facility]; Protocol Last Admin: 05/03/22 11:54 Dose: 2 unit Documented By: KYLER Levalbuterol HCl (Levalbuterol Hcl 1.25 Mg/0.5 Ml Vial.Neb) 1.25 mg INHALE Q6H [facility] Last Admin: 05/03/22 07:34 Dose: 1.25 mg Documented By: MATHIEU Melatonin (Melatonin 3 Mg Tablet) 3 mg PO BEDTIME PRN PRN Reason: Insomnia Metoprolol Tartrate (Metoprolol Tartrate 25 Mg Tablet) 25 mg PO BID [facility]; Protocol Last Admin: 05/03/22 09:18 Dose: 25 mg Documented By: KYLER Montelukast Sodium (Montelukast Sodium 10 Mg Tablet) 10 mg PO BEDTIME [facility] Last Admin: 05/02/22 22:18 Dose: 10 mg Documented By: MICHAEL Non-Formulary Medication (Linagliptin [Tradjenta]) 1 tab PO DAILY [facility] Ondansetron HCl (Ondansetron Hcl 4 Mg/2 Ml Vial) 4 mg IVPUSH Q8H PRN PRN Reason: Nausea and Vomiting Pharmacy Consult (Consult Rx Perform Med Rec) 1 each MISCELLANE ONCE PRN PRN Reason: Consult order Prednisone (Prednisone 10 Mg Tablet) 10 mg PO DAILY [facility] Last Admin: 05/03/22 09:18 Dose: 10 mg Documented By: KYLER Sodium Chloride (0.9 % Sodium Chloride Flush 3 Ml Syringe) 3 ml IVFLUSH QSHIFT [facility] Last Admin: 05/03/22 09:17 Dose: 3 ml Documented By: KYLER Trazodone HCl (Trazodone Hcl 50 Mg Tablet) 50 mg PO BEDTIME [facility] Last Admin: 05/02/22 22:18 Dose: 50 mg Documented By: MICHAEL Vitamin D (Cholecalciferol (Vitamin D3) 25 Mcg Tablet) 25 mcg PO DAILY [facility] Last Admin: 05/03/22 09:17 Dose: 25 mcg Documented By: KYLER <Coral Harris NP - Last Filed: 05/03/22 12:30> Labs CBC & Chem 7: : 05/05/22 06:33 05/05/22 06:33 <Coral Harris NP - Last Filed: 05/03/22 12:30> Labs: Laboratory Results - last 24 hr 05/02/22 05/02/22 05/03/22 15:44 19:18 06:34 MCV 92.5 MCH 28.7 MCHC 31.0 RDW 13.3 Plt Count 383 MPV 9.6 Absolute Nucleated RBC 0.030 H Nucleated RBC % (auto) 0.3 H Anion Gap Estim Creat Clear Calc Estimated GFR POC Glucose 163 H 199 H Random Glucose Calcium B-Natriuretic Peptide 05/03/22 05/03/22 05/03/22 06:34 06:34 07:43 MCV MCH MCHC RDW Plt Count MPV Absolute Nucleated RBC Nucleated RBC % (auto) Anion Gap 14 Estim Creat Clear Calc 26.9 Estimated GFR 30 POC Glucose 90 Random Glucose 103 Calcium 9.0 B-Natriuretic Peptide 606 H 05/03/22 11:08 MCV MCH MCHC RDW Plt Count MPV Absolute Nucleated RBC Nucleated RBC % (auto) Anion Gap Estim Creat Clear Calc Estimated GFR POC Glucose 153 H Random Glucose Calcium B-Natriuretic Peptide <Coral Harris NP - Last Filed: 05/03/22 12:30> Assessment and Plan (1) COPD (chronic obstructive pulmonary disease): Status: Acute <Coral Harris NP - Last Filed: 05/03/22 12:30> (2) Anemia: Status: Acute <Coral Harris NP - Last Filed: 05/03/22 12:30> (3) Acute diastolic CHF (congestive heart failure): Status: Acute <Coral Harris NP - Last Filed: 05/03/22 12:30> Assessment and Plan: 76-year-old female patient with past medical history of CHF, normocytic normochromic anemia, hypertension, chronic kidney disease stage 3 presented to [facility] due to symptoms of shortness of breath of few days duration associated with cough productive of yellow phlegm orthopnea and leg swelling. ?Acute on chronic diastolic CHF exacerbation ?feels better this a.m. less shortness of breath,mild CHF on chest x-ray bnp bumped to 1110 from 659 ?cont IV Lasix 40 mg bid follow BNP, BMP and magnesium ?Daily weight lilian/os , patient declined low salt /cardiac diet ?follow echocardiogram/ Discussed with cardiology agree with above tx sinus tachycardia with frequent PACs, 1 dose of metoprolol 5 mg IV given will discuss with Cardiology place patient on low-dose beta-blockers, had recent Holter monitor that showed no long arrhythmia but showed PACs and PVCs seen by Cardiology and it appears that patient has paroxysmal bursts of atrial fibrillation Dr. Ayala recommends metoprolol 25 mg q.12 hours and maximize as tolerated Hold eliquis due to hx of fall PT eval elevated troponin but flat no cp, follow echo ?acute COPD exacerbation continue xopenex, steroids ?continue home inhalers ?acute on chronic normocytic anemia likely anemia of kidney disease, Procrit given ,follow stool guaiac, previous iron studies within normal range. 1 unit PRBC today due to drop goal of HCT <30 ?obesity bmi 31-36 recommend low-calorie diet, since contributing to other medical issues like diabetes, hyperlipidemia and CHF diabetes mellitus start jardiance 10 mg as per cardiology will stop Januvia ?Hyperlipidemia on statin ? chronic kidney disease stage 3 creat around baseline ?code status full code DVT prophylaxis with heparin subQ ?patient need continued inpatient hospitalization due to acute on chronic diastolic heart failure requiring IV diuretics require further workup including echocardiogram and cardiology follow up. <Coral Harris NP - Last Filed: 05/03/22 12:30> Quality Stroke Does the patient have a stroke diagnosis?: No <Coral Harris NP - Last Filed: 05/03/22 12:30> VTE Prior VTE?: No <Coral Harris NP - Last Filed: 05/03/22 12:30> VTE Risk Level:: Medical - moderate - high <Coral Harris NP - Last Filed: 05/03/22 12:30> VTE Device Contraindication: Treatment Not Indicated <Coral Harris NP - Last Filed: 05/03/22 12:30> VTE Drug Contraindication: N/A - Med Ordered <Coral Harris NP - Last Filed: 05/03/22 12:30>
--- NOTE | 2022-05-03 13:30 | P.PNCA_ITS ---
Subjective Subjective Date of Service: 05/03/22 Principal diagnosis: CHF Interval history: Echocardiogram shows moderate to severe LV systolic dysfunction with moderate to severe mitral regurgitation. She continues to have short runs of supraventricular tachycardia which is most consistent with atrial fibrillation. She says her breathing is improved. She has diureseds however the intake output chart appear to be unreliable. She denies any palpitations. Taking all medications. Creatinine is improved marginally. Hematocrit is further down. No overt bleeding issues Review of Systems Constitutional: Reports lethargy Eyes: Reports no additional eye complaints Cardiovascular: Denies chest pain, Denies leg edema, Denies lightheadedness, Denies palpitations and Reports dyspnea Respiratory: Reports no additional respiratory complaints and Reports dyspnea Gastrointestinal: Reports no additional gastrointestinal complaints Musculoskeletal: Reports no additional musculoskeletal complaints Psychiatric: Reports no additional psychiatric complaints Endocrine: Reports no additional endocrine complaints and Denies palpitations Hematologic/Lymphatic: Reports no additional hematologic/lymphatic complaints Allergic/Immunologic: Reports no additional allergic/immunologic complaints Physical Exam Vital Signs: Last Vital Signs Temp 98.5 F 05/03/22 11:45 Pulse 92 05/03/22 11:45 Resp 18 05/03/22 11:45 BP 117/65 05/03/22 11:45 Pulse Ox 98 05/03/22 11:45 O2 Del Method 05/03/22 11:45 BMI result Body Mass Index 37.5 Const General: cooperative, comfortable and no acute distress Nutritional Appearance: obese Orientation/consciousness: patient oriented x3 Limitations: no limitations Neck Neck: Yes trachea midline, Yes supple and Yes no JVD Resp Effort & Inspection: normal respiratory effort Auscultation: no rales and diminished lung sounds Cardio Jugular venous distension: no JVD Palpation: normal PMI Rate: regular rate Rhythm: regular rhythm Heart sounds: S1 normal heart sound present, S2 normal heart sound present, no click, no gallops, no murmurs and no rubs GI Auscultation: normal bowel sounds Skin General skin exam: no rashes or lesions noted Neuro General: patient oriented x3 and no focal motor deficits Extrem General: Yes no clubbing, cyanosis or edema Psych Appearance: grossly normal Objective Labs and Meds Result diagrams: 05/03/22 06:34 05/03/22 06:34 Lab results: Laboratory Results - last 24 hr 05/02/22 05/02/22 05/03/22 15:44 19:18 06:34 WBC 10.0 RBC 2.68 L Hgb 7.7 L Hct 24.8 L MCV 92.5 MCH 28.7 MCHC 31.0 RDW 13.3 Plt Count 383 MPV 9.6 Absolute Nucleated RBC 0.030 H Nucleated RBC % (auto) 0.3 H Sodium Potassium Chloride Carbon Dioxide Anion Gap BUN Creatinine Estim Creat Clear Calc Estimated GFR POC Glucose 163 H 199 H Random Glucose Calcium B-Natriuretic Peptide 05/03/22 05/03/22 05/03/22 06:34 06:34 07:43 WBC RBC Hgb Hct MCV MCH MCHC RDW Plt Count MPV Absolute Nucleated RBC Nucleated RBC % (auto) Sodium 139 Potassium 4.5 Chloride 107 Carbon Dioxide 23 Anion Gap 14 BUN 50 H Creatinine 1.65 H Estim Creat Clear Calc 26.9 Estimated GFR 30 POC Glucose 90 Random Glucose 103 Calcium 9.0 B-Natriuretic Peptide 606 H 05/03/22 11:08 WBC RBC Hgb Hct MCV MCH MCHC RDW Plt Count MPV Absolute Nucleated RBC Nucleated RBC % (auto) Sodium Potassium Chloride Carbon Dioxide Anion Gap BUN Creatinine Estim Creat Clear Calc Estimated GFR POC Glucose 153 H Random Glucose Calcium B-Natriuretic Peptide Progress Note: A&P Assessment and plan (1) CHF (congestive heart failure): Status: Acute Assessment and Plan: CHF with systolic dysfunction. Has done well with diuresis. Continue 1 more day of IV diuresis. Check BNP and BMP tomorrow. Continue with metoprolol for neurohormonal modulation. Given a kidney function will hold off on addition of renin angiotensin antagonist at this point time. Will require ischemic workup as outpatient. Heart failure management was discussed with her. Continue to optimize her pulmonary function. Progressively anemic and this needs to be worked up. Question bleeding. May benefit with 1 unit of transfusion to maintain macro 30. Workup for anemia. (2) Paroxysmal atrial fibrillation: Status: Acute Assessment and Plan: Paroxysmal atrial fibrillation which is stable. Continue metoprolol therapy. Given her significant anemia renal dysfunction would hold off on oral antic oagulation therapy till workup and cause for anemia is known. Continue metoprolol and avoidance of stimulants. High risk of stroke was discussed with her. Will follow with her as outpatient. Thank you for allowing us to partake in the care. Will sign of the care today Time Spent With Patient Time: Total time spent is greater than 50% in coordination of care (as documented) at patient's floor/unit and/or counseling patient: Progress Note: Quality Stroke Does the patient have a stroke diagnosis?: No Procedures Date of Service Date of Service: 05/03/22
[2022-05-03 13:43] LABS: OBS Int Ctl Valid YES; OBS1 NEGATIVE (NEGATIVE)
[2022-05-03 16:04] LABS: Glucose, Whole Blood 167 mg/dL (60-115)
[2022-05-03 19:47] LABS: Glucose, Whole Blood 137 mg/dL (60-115)
[2022-05-03] MEDS: traZODone HCL 50 MG TABLET PO (20:41)
[2022-05-03] MEDS: Atorvastatin Calcium 80 MG TABLET PO (20:42)
[2022-05-03] MEDS: Montelukast Sodium 10 MG TABLET PO (20:42)
[2022-05-04] VITALS (9 sets, daily range): BP systolic 105–141; BP diastolic 48–65; PULSE 79–94; RESP 18–20; TEMP 36.3–36.9; O2SAT 96–100
[2022-05-04] MEDS: Heparin Sodium,Porcine 5,000 UNIT/ML VIAL 5000 UNIT SUBCUT (05:06)
[2022-05-04 06:56] LABS: Hematocrit 27.1 % (37.0-47.0); Hemoglobin 8.5 g/dl (12.0-16.0); Mean Corpuscular HGB Conc 31.4 g/dl (31.0-35.0); Mean Corpuscular Hemoglobin 28.9 pg (27.0-33.0); Mean Corpuscular Volume 92.2 fL (80.0-98.0); NRBC Pct Auto 0.4 /100WBC (0.0-0.2); Platelet Count 408 X10*3/uL (160-400); Red Blood Count 2.94 X10*6/uL (4.20-5.50); Red Cell Distribution Width 13.3 % (11.0-16.0); White Blood Count 10.9 X10*3/uL (4.8-10.8)
[2022-05-04 07:12] LABS: Anion Gap 14 (12-20); Blood Urea Nitrogen 54 mg/dL (9-16); Calcium 9.1 mg/dL (8.4-10.2); Carbon Dioxide 25 mmol/L (22-29); Chloride 103 mmol/L (96-108); Estimated Glomerular Filt Rate 29; Glucose Random 100 mg/dL (60-115); Potassium 4.3 mmol/L (3.3-5.1); Sodium 138 mmol/L (135-145)
[2022-05-04 07:17] LABS: B Type Natriuretic Peptide 814 pg/mL (<100)
[2022-05-04 07:26] LABS: Glucose, Whole Blood 104 mg/dL (60-115)
[2022-05-04 09:05] LABS: Iron 41 mcg/dL (30-160); Percent Iron Saturation 14 % (15-50); Total Iron Binding Capacity 288 mcg/dL (228-428); Unsaturated Iron Binding 247 ug/dL
[2022-05-04 09:25] LABS: Ferritin 47 ng/mL (10-250)
[2022-05-04] MEDS: 0.9 % Sodium Chloride Flush 3 ML SYRINGE IVFLUSH ×3 (09:25→20:26)
[2022-05-04] MEDS: guaiFENesin DM 100/10/5 ML 5 ML SYRUP 10 ML PO ×2 (09:25→18:25)
[2022-05-04] MEDS: Aspirin Enteric Coated 81 MG TABLET.DR PO (09:25)
[2022-05-04] MEDS: predniSONE 10 MG TABLET PO (09:25)
[2022-05-04] MEDS: Empagliflozin 10 MG TABLET PO (09:25)
[2022-05-04] MEDS: Metoprolol Tartrate 25 MG TABLET PO ×2 (09:25→20:25)
[2022-05-04] MEDS: Cholecalciferol (Vitamin D3) 25 MCG TABLET PO (09:25)
[2022-05-04] MEDS: Furosemide 40 MG/4 ML VIAL IVPUSH ×2 (09:25→18:25)
--- NOTE | 2022-05-04 11:29 | P.PNCA_ITS ---
Subjective Subjective Date of Service: 05/04/22 Principal diagnosis: CHF Interval history: Patient says she is breathing better. No significant episodes of atrial f ibrillation of fast heart rate noted on metoprolol. Hematocrit is marginally improved. No overt signs of bleeding. Blood pressure is stable. Renal function stable. Review of Systems Constitutional: Reports no additional constitutional complaints Cardiovascular: Denies chest pain, Denies lightheadedness, Denies Loss of Consciousness and Denies palpitations Respiratory: Reports no additional respiratory complaints Gastrointestinal: Reports no additional gastrointestinal complaints Genitourinary: Reports no additional female genitourinary complaints Musculoskeletal: Reports no additional musculoskeletal complaints Endocrine: Denies palpitations Physical Exam Vital Signs: Last Vital Signs Temp 97.6 F 05/04/22 11:06 Pulse 90 05/04/22 11:06 Resp 20 05/04/22 11:06 BP 130/61 05/04/22 11:06 Pulse Ox 97 05/04/22 11:06 O2 Del Method 05/04/22 11:06 O2 Flow Rate 5 05/04/22 07:34 BMI result Body Mass Index 37.5 Const General: cooperative, comfortable and no acute distress Nutritional Appearance: obese Orientation/consciousness: patient oriented x3 Limitations: no limitations Neck Neck: Yes trachea midline, Yes supple and Yes no JVD Resp Effort & Inspection: normal respiratory effort Auscultation: no rales and diminished lung sounds Cardio Jugular venous distension: no JVD Palpation: normal PMI Rate: regular rate Rhythm: regular rhythm Heart sounds: S1 normal heart sound present, S2 normal heart sound present, no click, no gallops, no murmurs and no rubs GI Auscultation: normal bowel sounds Skin General skin exam: no rashes or lesions noted Neuro General: patient oriented x3 and no focal motor deficits Extrem General: Yes no clubbing, cyanosis or edema Psych Appearance: grossly normal Objective Labs and Meds Result diagrams: 05/04/22 05:50 05/04/22 05:50 Lab results: Laboratory Results - last 24 hr 05/03/22 05/03/22 05/03/22 13:25 16:00 19:44 WBC RBC Hgb Hct MCV MCH MCHC RDW Plt Count MPV Absolute Nucleated RBC Nucleated RBC % (auto) Sodium Potassium Chloride Carbon Dioxide Anion Gap BUN Creatinine Estim Creat Clear Calc Estimated GFR POC Glucose 167 H 137 H Random Glucose Calcium Iron TIBC % Saturation Unsat Iron Binding Ferritin B-Natriuretic Peptide Stool Occult Blood NEGATIVE 05/04/22 05/04/22 05/04/22 05:50 05:50 05:50 WBC 10.9 H RBC 2.94 L Hgb 8.5 L Hct 27.1 L MCV 92.2 MCH 28.9 MCHC 31.4 RDW 13.3 Plt Count 408 H MPV 10.0 Absolute Nucleated RBC 0.040 H Nucleated RBC % (auto) 0.4 H Sodium 138 Potassium 4.3 Chloride 103 Carbon Dioxide 25 Anion Gap 14 BUN 54 H Creatinine 1.70 H Estim Creat Clear Calc 26.0 Estimated GFR 29 POC Glucose Random Glucose 100 Calcium 9.1 Iron 41 TIBC 288 % Saturation 14 L Unsat Iron Binding 247 Ferritin 47 B-Natriuretic Peptide 814 H Stool Occult Blood 05/04/22 07:12 WBC RBC Hgb Hct MCV MCH MCHC RDW Plt Count MPV Absolute Nucleated RBC Nucleated RBC % (auto) Sodium Potassium Chloride Carbon Dioxide Anion Gap BUN Creatinine Estim Creat Clear Calc Estimated GFR POC Glucose 104 Random Glucose Calcium Iron TIBC % Saturation Unsat Iron Binding Ferritin B-Natriuretic Peptide Stool Occult Blood Progress Note: A&P Assessment and plan (1) CHF exacerbation: Status: Acute Assessment and Plan: Patient with CHF exacerbation, clinically is improved. BNP is however higher. Will diurese Lasix IV push 40 mg b.i.d. x1 more day. Strict intake and output chart needs to be pursued. Continue to monitor renal function and BNP tomorrow. Continue metoprolol for neurohormonal modulation. Please add valsartan 40 mg b.i.d. to her regimen for afterload reduction as well as neurohormonal modulation. Follow renal function as well as potassium levels. Eventually require ischemic workup if follows up in the clinic. (2) Paroxysmal atrial fibrillation: Status: Acute Assessment and Plan: Paroxysmal atrial fibrillation with brief episodes. No recurrence at this point time. Will continue monitor by cardiac telemetry. Continue metoprolol therapy. Anemia is improved. Consider addition of Eliquis if there is no obvious bleeding source. Will follow with you Time Spent With Patient Time: Total time spent is greater than 50% in coordination of care (as documented) at patient's floor/unit and/or counseling patient: Progress Note: Quality Stroke Does the patient have a stroke diagnosis?: No Procedures Date of Service Date of Service: 05/04/22
[2022-05-04 11:33] LABS: Glucose, Whole Blood 187 mg/dL (60-115)
[2022-05-04] MEDS: Insulin Lispro 100 UNIT/ML 3 ML VIAL SUBCUT ×3 (12:28→21:21)
--- NOTE | 2022-05-04 13:05 | P.PNIM_ITS ---
Subjective Subjective Date of Service: 05/04/22 Interval History: cc: sob interval history:improving Cardiovascular Cardiovascular: Reports no additional cardiovascular complaints Respiratory Respiratory: Reports no additional respiratory complaints Physical Exam Vital Signs: Vital Signs: Last Vital Signs Temp 97.6 F 05/04/22 11:06 Pulse 90 05/04/22 11:06 Resp 20 05/04/22 11:06 BP 130/61 05/04/22 11:06 Pulse Ox 97 05/04/22 11:06 O2 Del Method 05/04/22 11:06 O2 Flow Rate 5 05/04/22 07:34 BMI result Body Mass Index 37.5 General: AO X 3, no acute distress Resp: CTA bilateral, no accessory muscles used CVS: S1,S2,RRR, 2+ edema GI: soft, non tender, non distended Neuro: motor grossly intact, alert Psych: appropriate affect, appropriate insight Objective Data Active Medications Acetaminophen (Acetaminophen 325 Mg Tablet) 650 mg PO Q6H PRN PRN Reason: Pain, Mild (Pain Scale 1-3) Albuterol/Ipratropium (Albuterol/Iprat 2.5/0.5mg 3 Ml Ampul.Neb) 3 ml INHALE RQ4H PRN PRN Reason: Shortness of Breath/Wheezing Last Admin: 05/01/22 23:28 Dose: 3 ml Documented By: EZRA Aspirin (Aspirin Enteric Coated 81 Mg Tablet.Dr) 81 mg PO DAILY [facility] Last Admin: 05/04/22 09:25 Dose: 81 mg Documented By: ODILIA Atorvastatin Calcium (Atorvastatin Calcium 80 Mg Tablet) 80 mg PO BEDTIME [facility] Last Admin: 05/03/22 20:42 Dose: 80 mg Documented By: FRANCHESCA Dextrose (Dextrose 50 % 25 Gm/50 Ml Syringe) 25 gm IVPUSH Q15M PRN; Protocol PRN Reason: per Hypoglycemia Standing Ord. Empagliflozin (Empagliflozin 10 Mg Tablet) 10 mg PO DAILY [facility] Last Admin: 05/04/22 09:25 Dose: 10 mg Documented By: ODILIA Fluticasone/Vilanterol (Fluticasone/Vilanterol 100/25 Blst.W.Dev) 1 puff INHALE RDAILY [facility] Last Admin: 05/04/22 07:32 Dose: Not Given Documented By: MATHIEU Non-Admin Reason: Med Not Available Furosemide (Furosemide 40 Mg/4 Ml Vial) 40 mg IVPUSH BID@0900,1800 [facility]; Protocol Last Admin: 05/04/22 09:25 Dose: 40 mg Documented By: ODILIA Glucose (Glucose Gel 15 Gm Gel..Gram.) 15 gm PO Q15M PRN; Protocol PRN Reason: per Hypoglycemia Standing Ord. Guaifenesin/Dextromethorphan (Guaifenesin Dm 100/10/5 Ml 5 Ml Syrup) 10 ml PO Q8H [facility] Last Admin: 05/04/22 09:25 Dose: 10 ml Documented By: ODILIA Heparin Sodium (Porcine) (Heparin Sodium,Porcine 5,000 Unit/Ml Vial) 5,000 unit SUBCUT Q8H [facility] Last Admin: 05/04/22 05:06 Dose: 5,000 unit Documented By: FRANCHESCA Insulin Human Lispro (Insulin Lispro 100 Unit/Ml 3 Ml Vial) 0 unit SUBCUT QIDACHS [facility]; Protocol Last Admin: 05/04/22 12:28 Dose: 2 unit Documented By: ODILIA Levalbuterol HCl (Levalbuterol Hcl 1.25 Mg/0.5 Ml Vial.Neb) 1.25 mg INHALE Q6H [facility] Last Admin: 05/04/22 07:30 Dose: 1.25 mg Documented By: MATHIEU Melatonin (Melatonin 3 Mg Tablet) 3 mg PO BEDTIME PRN PRN Reason: Insomnia Metoprolol Tartrate (Metoprolol Tartrate 25 Mg Tablet) 25 mg PO BID [facility]; Protocol Last Admin: 05/04/22 09:25 Dose: 25 mg Documented By: ODILIA Montelukast Sodium (Montelukast Sodium 10 Mg Tablet) 10 mg PO BEDTIME [facility] Last Admin: 05/03/22 20:42 Dose: 10 mg Documented By: FRANCHESCA Non-Formulary Medication (Linagliptin [Tradjenta]) 1 tab PO DAILY [facility] Ondansetron HCl (Ondansetron Hcl 4 Mg/2 Ml Vial) 4 mg IVPUSH Q8H PRN PRN Reason: Nausea and Vomiting Pharmacy Consult (Consult Rx Perform Med Rec) 1 each MISCELLANE ONCE PRN PRN Reason: Consult order Prednisone (Prednisone 10 Mg Tablet) 10 mg PO DAILY [facility] Last Admin: 05/04/22 09:25 Dose: 10 mg Documented By: ODILIA Sodium Chloride (0.9 % Sodium Chloride Flush 3 Ml Syringe) 3 ml IVFLUSH QSHIFT [facility] Last Admin: 05/04/22 09:25 Dose: 3 ml Documented By: ODILIA Trazodone HCl (Trazodone Hcl 50 Mg Tablet) 50 mg PO BEDTIME [facility] Last Admin: 05/03/22 20:41 Dose: 50 mg Documented By: FRANCHESCA Valsartan (Valsartan 40 Mg Tablet) 40 mg PO BID [facility]; Protocol Vitamin D (Cholecalciferol (Vitamin D3) 25 Mcg Tablet) 25 mcg PO DAILY [facility] Last Admin: 05/04/22 09:25 Dose: 25 mcg Documented By: ODILIA Labs CBC & Chem 7: 05/04/22 05:50 05/04/22 05:50 Labs: Laboratory Results - last 24 hr 05/03/22 05/03/22 05/03/22 13:25 16:00 19:44 MCV MCH MCHC RDW Plt Count MPV Absolute Nucleated RBC Nucleated RBC % (auto) Anion Gap Estim Creat Clear Calc Estimated GFR POC Glucose 167 H 137 H Random Glucose Calcium Iron TIBC % Saturation Unsat Iron Binding Ferritin B-Natriuretic Peptide Stool Occult Blood NEGATIVE 05/04/22 05/04/22 05/04/22 05:50 05:50 05:50 MCV 92.2 MCH 28.9 MCHC 31.4 RDW 13.3 Plt Count 408 H MPV 10.0 Absolute Nucleated RBC 0.040 H Nucleated RBC % (auto) 0.4 H Anion Gap 14 Estim Creat Clear Calc 26.0 Estimated GFR 29 POC Glucose Random Glucose 100 Calcium 9.1 Iron 41 TIBC 288 % Saturation 14 L Unsat Iron Binding 247 Ferritin 47 B-Natriuretic Peptide 814 H Stool Occult Blood 05/04/22 05/04/22 07:12 11:11 MCV MCH MCHC RDW Plt Count MPV Absolute Nucleated RBC Nucleated RBC % (auto) Anion Gap Estim Creat Clear Calc Estimated GFR POC Glucose 104 187 H Random Glucose Calcium Iron TIBC % Saturation Unsat Iron Binding Ferritin B-Natriuretic Peptide Stool Occult Blood Assessment and Plan (1) COPD (chronic obstructive pulmonary disease): Status: Acute (2) Anemia: Status: Acute (3) Acute diastolic CHF (congestive heart failure): Status: Acute Plan 76-year-old female patient with past medical history of CHF, normocytic normochromic anemia, hypertension, chronic kidney disease stage 3 presented to [facility] due to symptoms of shortness of breath of few days duration associated with cough productive of yellow phlegm orthopnea and leg swelling. ?Acute on chronic systolic CHF exacerbation continues to improve ?cont IV Lasix 40 mg bid follow labs ?Daily weight lilian/os , patient declined low salt /cardiac diet added valsartan 40mg bid, eventual ischemic work up paroxsymal afib continue metoprolol, anemia more inflammatory/ckd, stool occult negative, will start eliquis ?acute COPD exacerbation continue xopenex, steroids ?continue home inhalers ?acute on chronic normocytic anemia likely mostly anemia of kidney disease, Procrit given some chronic iron deficiency as well, stool occult negative obesity bmi 31-36 recommend low-calorie diet, since contributing to other medical is sues like diabetes, hyperlipidemia and CHF diabetes mellitus started jardiance 10 mg as per cardiology ?Hyperlipidemia on statin ? chronic kidney disease stage 3 creat around baseline ?code status full code DVT prophylaxis with eliquis reason for continued hospitalization:ongoing iv diuresis Quality Stroke Does the patient have a stroke diagnosis?: No VTE Prior VTE?: No VTE Risk Level:: Medical - moderate - high VTE Device Contraindication: Treatment Not Indicated VTE Drug Contraindication: N/A - Med Ordered
[2022-05-04] MEDS: Ferrous Sulfate 324 MG TABLET.DR PO (14:04)
[2022-05-04 16:07] LABS: Glucose, Whole Blood 182 mg/dL (60-115)
[2022-05-04] MEDS: Valsartan 40 MG TABLET PO (20:24)
[2022-05-04] MEDS: Montelukast Sodium 10 MG TABLET PO (20:25)
[2022-05-04] MEDS: Apixaban 5 MG TABLET PO (20:25)
[2022-05-04] MEDS: traZODone HCL 50 MG TABLET PO (20:25)
[2022-05-04] MEDS: Atorvastatin Calcium 80 MG TABLET PO (20:25)
[2022-05-04 20:44] LABS: Glucose, Whole Blood 234 mg/dL (60-115)
[2022-05-05 04:00] VITALS: BP 109/59; PULSE 84; RESP 18; TEMP 36.3; O2SAT 96
[2022-05-05 07:22] LABS: Hematocrit 27.2 % (37.0-47.0); Hemoglobin 8.5 g/dl (12.0-16.0); Mean Corpuscular HGB Conc 31.3 g/dl (31.0-35.0); Mean Corpuscular Hemoglobin 28.7 pg (27.0-33.0); Mean Corpuscular Volume 91.9 fL (80.0-98.0); Mean Platelet Volume 10.2 fL (9.4-12.3); NRBC Pct Auto 0.5 /100WBC (0.0-0.2); Platelet Count 335 X10*3/uL (160-400); Red Blood Count 2.96 X10*6/uL (4.20-5.50); Red Cell Distribution Width 13.3 % (11.0-16.0)
[2022-05-05 07:29] LABS: Glucose, Whole Blood 104 mg/dL (60-115)
[2022-05-05 07:42] LABS: Anion Gap 16 (12-20); Blood Urea Nitrogen 62 mg/dL (9-16); Calcium 8.5 mg/dL (8.4-10.2); Carbon Dioxide 24 mmol/L (22-29); Chloride 103 mmol/L (96-108); Creatinine Clr Calc Pharmacy 21.9; Estimated Glomerular Filt Rate 24; Glucose Fasting 108 mg/dL (60-99); Potassium 4.4 mmol/L (3.3-5.1); Sodium 139 mmol/L (135-145)
[2022-05-05 08:00] VITALS: BP 123/64; PULSE 95; RESP 18; TEMP 36.4; O2SAT 98
[2022-05-05] MEDS: Fluticasone/Vilanterol 100/25 BLST.W.DEV 1 PUFF INHALE (08:04)
[2022-05-05 08:05] VITALS: PULSE 86; RESP 18; O2SAT 97
--- NOTE | 2022-05-05 09:47 | P.PNCA_ITS ---
Subjective Subjective Date of Service: 05/05/22 Principal diagnosis: CHF Interval history: She states that she feels okay. No specific cardiac complaints. Review of Systems Review of Systems Yes all other systems are reviewed and are negative Constitutional: Reports as per HPI Eyes: Reports as per HPI Reports as per HPI Cardiovascular: Reports as per HPI, Denies acrocyanosis, Denies cool extremities, Denies chest pain, Denies leg edema, Denies lightheadedness, Denies palpitations and Denies dyspnea Respiratory: Reports as per HPI, Reports no additional respiratory complaints and Denies dyspnea Gastrointestinal: Reports as per HPI and Reports no additional gastrointestinal complaints Genitourinary: Reports as per HPI Musculoskeletal: Reports no additional musculoskeletal complaints and Reports as per HPI Skin/Breast: Reports system reviewed and no additional complaints, except as docu Reports system reviewed and no additional complaints, except as documented and Reports as per HPI Psychiatric: Reports no additional psychiatric complaints and Reports as per HPI Endocrine: Reports no additional endocrine complaints, Reports as per HPI and Denies palpitations Hematologic/Lymphatic: Reports no additional hematologic/lymphatic complaints and Reports as per HPI Allergic/Immunologic: Reports no additional allergic/immunologic complaints and Reports as per HPI Physical Exam Vital Signs: Last Vital Signs Temp 97.6 F 05/05/22 08:00 Pulse 86 05/05/22 08:05 Resp 18 05/05/22 08:05 BP 123/64 05/05/22 08:00 Pulse Ox 98 05/05/22 08:00 O2 Del Method 05/05/22 08:00 O2 Flow Rate 5 05/04/22 07:34 BMI result Body Mass Index 37.5 Const General: comfortable and no acute distress Orientation/consciousness: patient oriented x3 HEENT Other: Unremarkable Head: Yes normal to inspection Neck Neck: Yes normal visual inspection Chest Chest palpation & inspection: normal inspection of the chest Resp Other: Minimal crackles in chest. Cardio Palpation: normal PMI Heart sounds: S1 normal heart sound present, S2 normal heart sound present, no gallops, no murmurs and no rubs GI Palpation (GI): Soft to palpation Back/Spine/Pelvis Other: unremarkable Skin General skin exam: no rashes or lesions noted Neuro General: patient oriented x3 Extrem Other: Trace edema. General: Yes normal to inspection Psych Mental Status: mental status grossly normal Objective Labs and Meds Result diagrams: 05/05/22 06:33 05/05/22 06:33 Lab results: Laboratory Results - last 24 hr 05/04/22 05/04/22 05/04/22 11:11 16:00 20:37 WBC RBC Hgb Hct MCV MCH MCHC RDW Plt Count MPV Absolute Nucleated RBC Nucleated RBC % (auto) Sodium Potassium Chloride Carbon Dioxide Anion Gap BUN Creatinine Estim Creat Clear Calc Estimated GFR POC Glucose 187 H 182 H 234 H Fasting Glucose Calcium 05/05/22 05/05/22 05/05/22 06:33 06:33 07:17 WBC 11.0 H RBC 2.96 L Hgb 8.5 L Hct 27.2 L MCV 91.9 MCH 28.7 MCHC 31.3 RDW 13.3 Plt Count 335 MPV 10.2 Absolute Nucleated RBC 0.060 H Nucleated RBC % (auto) 0.5 H Sodium 139 Potassium 4.4 Chloride 103 Carbon Dioxide 24 Anion Gap 16 BUN 62 H Creatinine 2.02 H Estim Creat Clear Calc 21.9 Estimated GFR 24 POC Glucose 104 Fasting Glucose 108 H Calcium 8.5 D Progress Note: A&P Assessment and plan (1) Acute HFrEF (heart failure with reduced ejection fraction): Status: Acute Assessment and Plan: In the recent echocardiogram, LVEF 30-35%. Clinically, she does not have much volume overload at this time. Mostly euvolemic. Diuretics. Can switch beta- blockers sustained release. On valsartan. Will need to follow renal function. (2) Non-rheumatic mitral regurgitation: Status: Acute Assessment and Plan: Moderate to severe mitral regurgitation on the echocardiogram. Will need to be followed as an outpatient. (3) Paroxysmal atrial fibrillation: Status: Acute Assessment and Plan: In sinus rhythm. Continue beta-blockers. With regard to anticoagulation, not clear if she would be a candidate or not as she also falls frequently at home. Additionally, has anemia. (4) Anemia: Status: Acute Assessment and Plan: As above, will need to be evaluated due to anticoagulation needs. Plan Discussed with hospitalist. Time Spent With Patient Time: Total time spent is greater than 50% in coordination of care (as documented) at patient's floor/unit and/or counseling patient: 35 minutes Progress Note: Quality Stroke Does the patient have a stroke diagnosis?: No Procedures Date of Service Date of Service: 05/05/22
[2022-05-05] MEDS: 0.9 % Sodium Chloride Flush 3 ML SYRINGE IVFLUSH (09:52)
[2022-05-05] MEDS: Furosemide 40 MG/4 ML VIAL IVPUSH (09:52)
[2022-05-05] MEDS: Aspirin Enteric Coated 81 MG TABLET.DR PO (09:53)
[2022-05-05] MEDS: Apixaban 5 MG TABLET PO (09:53)
[2022-05-05] MEDS: Valsartan 40 MG TABLET PO (09:53)
[2022-05-05] MEDS: Cholecalciferol (Vitamin D3) 25 MCG TABLET PO (09:53)
[2022-05-05] MEDS: predniSONE 10 MG TABLET PO (09:53)
[2022-05-05] MEDS: Empagliflozin 10 MG TABLET PO (09:53)
[2022-05-05] MEDS: Ferrous Sulfate 324 MG TABLET.DR PO (09:53)
[2022-05-05] MEDS: guaiFENesin DM 100/10/5 ML 5 ML SYRUP 10 ML PO (09:53)
[2022-05-05] MEDS: Metoprolol Tartrate 25 MG TABLET PO (09:53)
[2022-05-05 11:17] VITALS: BP 117/53; PULSE 89; RESP 18; TEMP 36.7; O2SAT 97
--- NOTE | 2022-05-05 11:26 | MHC.CLN ---
F/U NOTED PRESSURE INJURY HEALED SINCE 05/02 PER NSG GLUCERJESS D/C PO INTAKE 100% X [address] TO FOLLOW WEEKLY R/T LOW NUTRITION RISK AT THIS TIME
[2022-05-05 11:47] LABS: Glucose, Whole Blood 170 mg/dL (60-115)
--- NOTE | 2022-05-05 11:52 | P.DS_ITS ---
DS: Providers Provider Date of Service: 05/05/22 Date of admission: 05/01/22 16:11 Primary care physician: Lisa Rojo MD Consults: 05/02/22 07:56 Consult to Cardiology Routine Consulting Provider: Florian Tolliver Reason for consultation: chf Has provider been notified: No DS: Diagnosis Discharge Diagnosis (1) Acute HFrEF (heart failure with reduced ejection fraction): Status: Acute (2) Non-rheumatic mitral regurgitation: Status: Acute (3) Paroxysmal atrial fibrillation: Status: Acute (4) Anemia: Status: Acute DS: Summary Hospital Course Hospital Course: from initial hpi: Chief Complaint:? shortness of breath ?76-year-old female with past medical history of diastolic congestive heart failure, COPD, diabetes, hypertension, chronic kidney disease stage 3 presented to [facility] due to shortness of breath of few days duration patient was admitted to [facility] on March of 2022 and diagnosed to have COVID infection, patient was treated with steroids and bronchodilators with good response, as per patient shortness of breath started see since 4 days ago she described it as chest congestion associated with 1 episode of chest discomfort that occurred while resting and resolved no recurrence , c/o orthopnea,? leg swelling,cough productive of yellow phlegm, she denies associated fever chills, she denies recent travel, no sick contacts, she is compliant with home medications, denies hematemesis, no melena in the emergency room noted to have hematocrit of 25.8 hemoglobin 8, stable kidney function blood sugar 1389 troponin 28.8 and BNP of 659 chest x-ray shows mild congestive heart failure , chronic since last admission, in the emergency room patient treated with 1 dose of Decadron and updraft, and now being admitted due to acute CHF exacerbation,? 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 hospital course: Patient was admitted for acute on chronic systolic CHF. She was treated with IV Lasix and diuresed well. Her shortness of breath significantly improved. Her echo showed reduced EF 25-30%. She was seen by Cardiology who recommended adding will start on 40 mg b.i.d., Jardiance, metoprolol. Plans for eventual ischemic workup as outpatient. Patient also noted to have brief episodes of at rial fibrillation, she is mostly in sinus rhythm, given risks of bleeding due to falls and anemia decision was made to withhold anticoagulation for now, patient will follow-up with Cardiology for Holter, she will continue metoprolol. For COPD with acute decompensation she was given Xopenex, steroids, inhalers and improved. For patient's acute on chronic normocytic anemia, this was most likely inflammatory/ renal disease, there was some element of iron deficiency though stool occult was negative, she will be started on oral iron, she was also given Procrit during hospitalization. For her obesity weight loss recommended. For diabetes she will continue on metformin, Tradjenta, Jardiance was added due to CHF. For hyperlipidemia she will continue on statin, for CKD 3 creatinine was stable. Patient is feeling better will be discharged home. Time Spent with Patient Time attestation: Total time spent providing and/or coordinating discharge services: Discharge coordination time: Greater than 30 minutes Quality: Safe Use of Opioids Does Pt have an Active Cancer Diagnosis on the Problem List?: No Quality: Stroke Does the patient have a stroke diagnosis?: No Physical Exam Vital Signs: Vital Signs: Last Vital Signs Temp 98.1 F 05/05/22 11:17 Pulse 89 05/05/22 11:17 Resp 18 05/05/22 11:17 BP 117/53 L 05/05/22 11:17 Pulse Ox 97 05/05/22 11:17 O2 Del Method 05/05/22 11:17 O2 Flow Rate 5 05/04/22 07:34 BMI result Body Mass Index 37.5 General: AO X 3, no acute distress Resp: CTA bilateral, no accessory muscles used CVS: S1,S2,RRR GI: soft, non tender, non distended Neuro: motor grossly intact, alert Psych: appropriate affect, appropriate insight DS: Data Data Completed and Pending Labs on day of discharge: Laboratory Results - last 24 hr 05/04/22 05/04/22 05/05/22 16:00 20:37 06:33 WBC 11.0 H RBC 2.96 L Hgb 8.5 L Hct 27.2 L MCV 91.9 MCH 28.7 MCHC 31.3 RDW 13.3 Plt Count 335 MPV 10.2 Absolute Nucleated RBC 0.060 H Nucleated RBC % (auto) 0.5 H Sodium Potassium Chloride Carbon Dioxide Anion Gap BUN Creatinine Estim Creat Clear Calc Estimated GFR POC Glucose 182 H 234 H Fasting Glucose Calcium 05/05/22 05/05/22 05/05/22 06:33 07:17 11:16 WBC RBC Hgb Hct MCV MCH MCHC RDW Plt Count MPV Absolute Nucleated RBC Nucleated RBC % (auto) Sodium 139 Potassium 4.4 Chloride 103 Carbon Dioxide 24 Anion Gap 16 BUN 62 H Creatinine 2.02 H Estim Creat Clear Calc 21.9 Estimated GFR 24 POC Glucose 104 170 H Fasting Glucose 108 H Calcium 8.5 D Discharge Plan Discharge Patient Disposition: Home Health Service Discharge Diagnosis: chf Referrals: Lisa Todd MD [Primary Care Provider] - 1 Week Discharge Medications: New ferrous sulfate 324 mg (65 mg iron) Tablet,Delayed Release (Dr/Ec) 324 mg PO DAILY Qty: 30 0RF metoprolol succinate [Toprol XL] 50 mg tablet extended release 24 hr 50 mg PO DAILY Qty: 30 0RF valsartan 40 mg tablet 40 mg PO BID Qty: 60 0RF Jardiance 10 mg Tablet 10 mg PO DAILY Qty: 30 0RF furosemide 40 mg tablet 40 mg PO DAILY Qty: 30 0RF Continued cholecalciferol (vitamin D3) 25 mcg (1,000 unit) tablet 25 mcg PO DAILY 90 Days Qty: 90 3RF diphenhydramine HCl [Banophen] 25 mg capsule 25 mg PO TID PRN (Reason: for allergies) 30 Days Qty: 90 1RF metformin 500 mg tablet extended release 24 hr 1,000 mg PO BEDTIME 90 Days Qty: 180 3RF atorvastatin 80 mg tablet 80 mg PO BEDTIME trazodone 50 mg tablet 1 tab PO BEDTIME Tradjenta 5 mg tablet 1 tab PO DAILY albuterol sulfate 2.5 mg /3 mL (0.083 %) solution for nebulization 2.5 mg inhalation Q6H PRN (Reason: bronchospasm) 30 Days Qty: 360 0RF aspirin 81 mg Tablet,Delayed Release (Dr/Ec) 81 mg PO DAILY montelukast 10 mg tablet 10 mg PO BEDTIME (DME) lancets 30 gauge misc See Rx Instructions topical BID Qty: 100 Rx Instructions: As directed (DME) blood sugar diagnostic Strip See Rx Instructions Not Applicable BID Qty: 10 Rx Instructions: As directed (DME) blood-glucose meter Kit See Rx Instructions .ROUTE .MEDSUPPLY Qty: 1 Rx Instructions: As directed (DME) lancing device Misc See Rx Instructions topical .MEDSUPPLY Qty: 1 Rx Instructions: As directed (DME) blood glucose control high,low Solution See Rx Instructions .ROUTE .MEDSUPPLY Qty: 1 Rx Instructions: As directed fluticasone propion-salmeterol [Advair Diskus] 250-50 mcg/dose blister with device 1 inh inhalation BID Discontinued furosemide 20 mg tablet 20 mg PO DAILY 90 Days Qty: 90 3RF Discharge Orders: Discharge Order (Routine); Ordered 05/05/22 Ordered By: Gunnar Damon Diet: advance to usual diet Activity on Discharge: As tolerated Stand Alone Forms: Patient Portal Discharge page Care Plan Goals: recovery Health Concerns: chf, afib Plan of Treatment: meds changes noted in med rec, follow up with cardiology Assessment: see above
[2022-05-05] MEDS: Insulin Lispro 100 UNIT/ML 3 ML VIAL SUBCUT (12:40)
--- NOTE | 2022-05-05 13:23 | MHC.CM.PN ---
Patient has been medically cleared for dc to home today; no skilled services needed per discussion with MD. 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 Patient's Son will provide transportation to home.
== END 2022-05-05 15:41 | disposition home or self-care (01) | DRG 291 ==
LOC: HO.ED 14:38 → HO.EDOVER 16:19 → HO.IMC 21:17
PROVIDERS: Nurse Practitioner Acute Care; Physician Assistant Medical; Admitting Provider Hospitalist; Emergency Provider Student in an Organized Health Care Education/Training Program; PCP Internal Medicine; Visit Provider Internal Medicine
DX: I13.0 Hypertensive heart and chronic kidney disease with heart failure and stage 1 through stage 4 chronic kidney disease, or unspecified chronic kidney disease (principal); I50.33 Acute on chronic diastolic (congestive) heart failure; J44.1 Chronic obstructive pulmonary disease with (acute) exacerbation; G47.33 Obstructive sleep apnea (adult) (pediatric); F32.A Depression, unspecified; D63.1 Anemia in chronic kidney disease; E11.22 Type 2 diabetes mellitus with diabetic chronic kidney disease; N18.30 Chronic kidney disease, stage 3 unspecified; E78.5 Hyperlipidemia, unspecified; R00.0 Tachycardia, unspecified; Z86.16 Personal history of COVID-19; Z20.822 Contact with and (suspected) exposure to COVID-19; I48.0 Paroxysmal atrial fibrillation; I49.1 Atrial premature depolarization; Z99.3 Dependence on wheelchair; Z91.013 Allergy to seafood; Z88.8 Allergy status to other drugs, medicaments and biological substances; Z79.51 Long term (current) use of inhaled steroids; Z79.82 Long term (current) use of aspirin; Z79.84 Long term (current) use of oral hypoglycemic drugs; Z79.899 Other long term (current) drug therapy
CPT/HCPCS: 36415; 71046; 78580; 80048; 80053; 82272; 82728; 82803; 82947; 83540; 83735; 83880; 84484; 85025; 85027; 85379; 87633; 93005; 93306; 94640; 96374; 99285; A9540; J0885; J1100; J1940; Q9957

== ENCOUNTER → 2022-06-06 08:28 | Outpatient (REF) | payer OTHER, SELFPAY ==
--- NOTE | ~2022-06-06 | NM_ITS ---
Lexiscan Myocardial perfusion study Indication: Congestive heart failure, assess for coronary disease and ischemia Technique: The patient was brought in for a Lexiscan perfusion study on 06/06/2022 and was injected 0.4 mg of Lexiscan intravenously. Within a minute of this injection 25 mCi of sestamibi was given intravenously. Images were obtained using the SPECT gamma camera interlaced with the gating device. Images were obtained in supine position. Resting perfusion study was performed on 06/09/2022. Patient was administered 25 mCi of sestamibi intravenously at rest. Images were then obtained in supine position. Total DLP 167mGy-cm. Images were processed with the software and compared side to side in short axis, horizontal long axis and vertical long axis views. Findings: Raw acquisition reviewed. Arms by the patient's side. The stress perfusion study showed severely diminished tracer uptake in the distal part of inferolateral wall. Markedly diminished tracer uptake in the mid part of inferolateral wall. There is some improvement with CT attenuation correction but does not resolve completely. The gated study shows diminished LV systolic function with calculated LVEF of 43%. LV cavity is normal in size. The gated study shows globally reduced thickening but much more prominently in the inferolateral wall. Resting study shows markedly diminished tracer uptake in the distal part of inferolateral wall. Some thickening in the part of inferolateral wall. There is improvement with CT attenuation correction suggestive of diaphragmatic attenuation artifact Gating at rest reveals ejection fraction at 41%; difficult to assess the wall motion. The findings are consistent with mixed inferolateral defect in mid to distal portions with reversible and fixed components. Addition, components of diaphragmatic attenuation artifact. NM/NM cardiolite stress test Impression: 1. Myocardial perfusion imaging study shows mixed ischemia/infarct pattern in the inferolateral wall, mid to distal portions. 2. Gated LVEF is 43% during stress and 41% during rest. 3. Transient ischemic dilatation not present. EKG component of the test reported separately.
--- NOTE | 2022-06-06 08:32 | HM_ITS ---
Conclusion: 1. Patient was monitored for total period of 5 days and 23 hours 2. Baseline was normal sinus rhythm with average heart rate of 90 beats per minute 3. No significant pauses or bradycardia noted 4. Very frequent short burst of supraventricular tachycardia with longest lasting 9 beats. 5. Total of 6982 PACs accounting for 3% of total beats account for frequent PACs 6. No patient reported events MTDD
--- NOTE | 2022-06-06 08:32 | CA_ITS ---
Acquisition Time: 2022-06-06 09:03:49 Total Exercise Time: 00:02:00 Test Indications: AFIB Medications: SEE CHART Protocol: LEXISCAN Max HR: 116 BPM 81% of Pred: 142 BPM Max BP: 134/062 mmHG Max Work Load: 1.0 METS Pharmacologcial stress test with Lexiscan injection, while sitting and moving left arm, without anginal symptoms, with PACs which are frequent at times, with normotensive response to injection, with nondiagnostic EKG for ischemia. In recovery she reported dizziness that was treated with Aminophylline 75mg IVP to reverse Lexiscan with resolution of symptom. Nuclear images pending. Test reviewed with Dr Jones. Referred By: Florian Tolliver Overread By: SREEKANTH BERNSTEIN
== END ==
LOC: HO.CARD 08:28
PROVIDERS: Visit Provider Internal Medicine
DX: I50.21 Acute systolic (congestive) heart failure (principal); R00.0 Tachycardia, unspecified; I48.0 Paroxysmal atrial fibrillation
CPT/HCPCS: 78452; 93017; 93242; A9500; J0280; J2785

== ENCOUNTER → 2022-07-02 10:09 | Outpatient (BNVA) | payer OTHER, SELFPAY | PROVIDERS: PCP Internal Medicine; Visit Provider Internal Medicine | DX: G47.33 Obstructive sleep apnea (adult) (pediatric) (principal); J44.9 Chronic obstructive pulmonary disease, unspecified; R29.898 Other symptoms and signs involving the musculoskeletal system | CPT/HCPCS: 99212 ==

== ENCOUNTER → 2022-07-08 15:23 | Outpatient (BNVA) | payer OTHER, SELFPAY | PROVIDERS: PCP Internal Medicine; Referring Provider Internal Medicine; Visit Provider Internal Medicine Cardiovascular Disease | DX: I50.20 Unspecified systolic (congestive) heart failure (principal); I48.0 Paroxysmal atrial fibrillation | CPT/HCPCS: 99212 ==

== ENCOUNTER 2022-08-11 10:31 | Outpatient (REF) | payer OTHER, SELFPAY ==
[2022-08-11 11:13] LABS: MANUAL DIFF FLAG NO
[2022-08-11 11:46] LABS: Basophils Absolute Auto 0.1 X10*3/uL (0.0-0.2); Basophils Percent Auto 0.7 % (0-2); Eosinophils Absolute Auto 0.2 X10*3/uL (0.0-0.4); Eosinophils Percent Auto 1.7 % (0-4); Hematocrit 31.8 % (37.0-47.0); Imm Gran Abs Auto 0.12 X10*3/uL (0.00-0.03); Imm Gran Pct Auto 1.2 % (0.0-0.4); Lymphocytes Absolute Auto 2.7 X10*3/uL (1.2-4.9); Lymphocytes Percent Auto 26.5 % (20-40); Mean Corpuscular HGB Conc 31.4 g/dl (31.0-35.0); Mean Corpuscular Volume 89.1 fL (80.0-98.0); Mean Platelet Volume 9.4 fL (9.4-12.3); Monocytes Absolute Auto 0.8 X10*3/uL (0.1-1.2); Monocytes Percent Auto 7.6 % (2-11); Neutrophils Absolute Auto 6.3 x10*3/uL (2.0-8.3); Neutrophils Percent Auto 62.3 % (45-73); Platelet Count 403 X10*3/uL (160-400); Red Blood Count 3.57 X10*6/uL (4.20-5.50); Red Cell Distribution Width 13.7 % (11.0-16.0); White Blood Count 10.1 X10*3/uL (4.8-10.8)
[2022-08-11 11:53] LABS: INTERNATIONAL NORM RATIO 0.9 (0.9-1.1); Prothrombin Time 10.2 SEC (10.0-13.1)
[2022-08-11 12:19] LABS: Alanine Aminotransferase 19 U/L (0-31); Albumin Level 4.2 g/dL (3.5-5.0); Alkaline Phosphatase 77 U/L (39-117); Anion Gap 21 (12-20); Aspartate Amino Transferase 15 U/L (5-31); Bilirubin Total < 0.2 mg/dL (0.0-1.0); Blood Urea Nitrogen 62 mg/dL (9-16); Calcium 10.1 mg/dL (8.4-10.2); Carbon Dioxide 20 mmol/L (22-29); Chloride 103 mmol/L (96-108); Cholesterol 141 mg/dL; Estimated Glomerular Filt Rate 20; Glucose Fasting 196 mg/dL (60-99); HDL Cholesterol 41 mg/dL; Iron 65 mcg/dL (30-160); LDL Cholesterol Calculated 80 mg/dl; Percent Iron Saturation 22 % (15-50); Potassium 4.5 mmol/L (3.3-5.1); Sodium 139 mmol/L (135-145); Total Iron Binding Capacity 300 mcg/dL (228-428); Total Protein 6.7 g/dL (6.5-8.0); Triglycerides 104 mg/dL; Unsaturated Iron Binding 235 ug/dL
[2022-08-11 12:41] LABS: Vitamin D 25-OH Total 58.8 ng/mL (>30)
[2022-08-11 13:00] LABS: Folate > 20.0 ng/mL (> or = 4.0); Vitamin B12 521 pg/mL (200-900)
[2022-08-14 10:56] LABS: NT-proBNP 607 pg/mL
== END 2022-08-11 10:32 | disposition home or self-care (01) ==
LOC: HO.LAB 10:31
PROVIDERS: Absent Provider Internal Medicine Cardiovascular Disease; PCP Internal Medicine; Visit Provider Internal Medicine
DX: E11.21 Type 2 diabetes mellitus with diabetic nephropathy (principal); I50.20 Unspecified systolic (congestive) heart failure; N18.32 Chronic kidney disease, stage 3b; D64.9 Anemia, unspecified; E78.5 Hyperlipidemia, unspecified; E55.9 Vitamin D deficiency, unspecified; R06.00 Dyspnea, unspecified
CPT/HCPCS: 36415; 80048; 80053; 80061; 82306; 82607; 82746; 83540; 83880; 85025; 85610

== ENCOUNTER → 2022-09-04 09:57 | Outpatient (BNVA) | payer OTHER, SELFPAY | PROVIDERS: PCP Internal Medicine; Visit Provider Internal Medicine | DX: J44.9 Chronic obstructive pulmonary disease, unspecified (principal); G47.33 Obstructive sleep apnea (adult) (pediatric); R29.898 Other symptoms and signs involving the musculoskeletal system; E66.9 Obesity, unspecified; Z79.899 Other long term (current) drug therapy | CPT/HCPCS: 99212 ==

== ENCOUNTER → 2022-09-25 14:52 | Outpatient (BNVA) | payer OTHER, SELFPAY | PROVIDERS: PCP Internal Medicine; Referring Provider Internal Medicine; Visit Provider Nurse Practitioner Family | DX: I42.9 Cardiomyopathy, unspecified (principal); I11.0 Hypertensive heart disease with heart failure; I50.20 Unspecified systolic (congestive) heart failure; I48.0 Paroxysmal atrial fibrillation; Z98.890 Other specified postprocedural states | CPT/HCPCS: 99212 ==

== ENCOUNTER 2022-10-07 10:01 | Outpatient (REF) | payer OTHER, SELFPAY ==
[2022-10-07 10:25] LABS: MANUAL DIFF FLAG NO
[2022-10-07 10:35] LABS: Basophils Absolute Auto 0.1 X10*3/uL (0.0-0.2); Basophils Percent Auto 0.7 % (0-2); Eosinophils Absolute Auto 0.1 X10*3/uL (0.0-0.4); Eosinophils Percent Auto 1.4 % (0-4); Hematocrit 29.1 % (37.0-47.0); Hemoglobin 9.3 g/dl (12.0-16.0); Imm Gran Abs Auto 0.07 X10*3/uL (0.00-0.03); Imm Gran Pct Auto 0.8 % (0.0-0.4); Lymphocytes Percent Auto 21.6 % (20-40); Mean Corpuscular Hemoglobin 29.9 pg (27.0-33.0); Mean Corpuscular Volume 93.6 fL (80.0-98.0); Mean Platelet Volume 9.1 fL (9.4-12.3); Monocytes Absolute Auto 0.6 X10*3/uL (0.1-1.2); Monocytes Percent Auto 6.6 % (2-11); Neutrophils Absolute Auto 6.3 x10*3/uL (2.0-8.3); Neutrophils Percent Auto 68.9 % (45-73); Platelet Count 366 X10*3/uL (160-400); Red Blood Count 3.11 X10*6/uL (4.20-5.50); Red Cell Distribution Width 13.5 % (11.0-16.0); White Blood Count 9.1 X10*3/uL (4.8-10.8)
[2022-10-07 11:02] LABS: Alanine Aminotransferase 17 U/L (0-31); Albumin Level 3.9 g/dL (3.5-5.0); Alkaline Phosphatase 77 U/L (39-117); Anion Gap 16 (12-20); Aspartate Amino Transferase 11 U/L (5-31); Bilirubin Total 0.2 mg/dL (0.0-1.0); Blood Urea Nitrogen 48 mg/dL (9-16); Calcium 9.5 mg/dL (8.4-10.2); Carbon Dioxide 20 mmol/L (22-29); Chloride 107 mmol/L (96-108); Cholesterol 125 mg/dL; Estimated Glomerular Filt Rate 20; Glucose Fasting 318 mg/dL (60-99); HDL Cholesterol 38 mg/dL; Iron 38 mcg/dL (30-160); LDL Cholesterol Calculated 66 mg/dl; Percent Iron Saturation 15 % (15-50); Potassium 4.3 mmol/L (3.3-5.1); Sodium 139 mmol/L (135-145); Total Iron Binding Capacity 261 mcg/dL (228-428); Total Protein 6.3 g/dL (6.5-8.0); Triglycerides 108 mg/dL; Unsaturated Iron Binding 223 ug/dL
[2022-10-07 11:07] LABS: B Type Natriuretic Peptide 35 pg/mL (<100)
[2022-10-07 12:45] LABS: Creatinine Urine 41.76 mg/dL
[2022-10-07 13:12] LABS: Microalbum/Creatinine Ratio Ur 1161.3 ug/mg cr
[2022-10-12 15:09] LABS: Vitamin D 25-OH, D2 4 ng/mL; Vitamin D 25-OH, D3 42 ng/mL; Vitamin D 25-OH, Total 46 ng/mL (30-100)
== END 2022-10-07 10:02 | disposition home or self-care (01) ==
LOC: HO.LAB 10:01
PROVIDERS: Internal Medicine Cardiovascular Disease; PCP Internal Medicine; Visit Provider Nurse Practitioner Family
DX: I42.9 Cardiomyopathy, unspecified (principal); E11.9 Type 2 diabetes mellitus without complications; E78.5 Hyperlipidemia, unspecified; E55.9 Vitamin D deficiency, unspecified; J44.9 Chronic obstructive pulmonary disease, unspecified; D64.9 Anemia, unspecified; I50.20 Unspecified systolic (congestive) heart failure
CPT/HCPCS: 36415; 80048; 80053; 80061; 82043; 82306; 83540; 83880; 85025

== ENCOUNTER → 2022-10-08 10:35 | Outpatient (BNVA) | payer OTHER, SELFPAY | PROVIDERS: PCP Internal Medicine; Visit Provider Internal Medicine | DX: J44.9 Chronic obstructive pulmonary disease, unspecified (principal); G47.33 Obstructive sleep apnea (adult) (pediatric); Z79.899 Other long term (current) drug therapy | CPT/HCPCS: 99212 ==

== ENCOUNTER → 2022-10-24 10:29 | Outpatient (REF) | payer OTHER, SELFPAY ==
--- NOTE | 2022-10-24 10:31 | CA_ITS ---
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 The calculated ejection fraction is 59% by biplane method. Findings Procedure Information Contrast agent, definity, is being given per protocol without apparent complications. Left Ventricle Normal left ventricular cavity size. The left ventricular systolic function is normal. The calculated ejection fraction is 59% by biplane method. There is no evidence of regional wall motion abnormalities. Prior Study Comparison Changes noted compared to prior study dated: 05/02/2022. Improved LVEF. Measurements 2D Linear Measurements IVSd: 0.99 0.6-0.9/0.6-1.0 cm LVIDd: 4.39 3.9-5.3/4.2-5.9 cm LVIDd Index: 2.60 2.4-3.2/2.2-3.1 cm/m2 LVIDs: 3.04 2.0-3.6 cm LVPWd: 0.93 0.7-1.1 cm LV Mass: 173.18 67-162/88-224 g LV Mass Index: 102.47 43-95/49-115 g/m2 2D Systolic Function EF 4C: 51.60 >55% EF 2C: 63.80 >55% EF BiP: 58.60 >55% Updated in Other Vendor System with Status of Final Milton Jones MD electronically signed on 10/25/2022 1:35:53 PM with status of Final
== END ==
LOC: HO.CARD 10:29
PROVIDERS: PCP Internal Medicine; Visit Provider Nurse Practitioner Family
DX: I42.9 Cardiomyopathy, unspecified (principal)
CPT/HCPCS: 93308; Q9957

== ENCOUNTER → 2022-11-06 09:48 | Outpatient (BNVA) | payer OTHER, SELFPAY | PROVIDERS: PCP Internal Medicine; Visit Provider Internal Medicine | DX: G47.33 Obstructive sleep apnea (adult) (pediatric) (principal); J44.9 Chronic obstructive pulmonary disease, unspecified | CPT/HCPCS: 99212 ==

== ENCOUNTER 2022-11-12 17:32 | Emergency (ER) | payer OTHER, SELFPAY ==
--- NOTE | ~2022-11-12 | CT_ITS ---
Indication: Right-sided pain EXAMINATION: CT of the chest abdomen pelvis. Axial imaging with coronal and sagittal reformatted images. Noncontrast. This CT examination was performed using dose optimization techniques as appropriate, variously including the following: *Automated exposure control *Adjustment of mA and/or kV according to patient size (this includes techniques or standardized protocols for targeted exams where dose is matched to indication/reason for exam; i.e. extremities or head) *Use of iterative reconstruction technique. Radiation dose 561. Thoracic inlet shows a nodular left thyroid. Ultrasound recommended. The axillary regions are felt to be unremarkable. Mild coronary calcifications are noted. Mild subcarinal adenopathy. Short axis I cm. This is a noncontrast study but the hilar regions do not appear pathologically enlarged. Imaging of the lung juarez. Right lung; There is no significant infiltrate or effusion. There is no pneumothorax. Left lung; No pneumothorax or effusion. No significant infiltrate. Upper abdomen; Liver is within normal limits. High density within the gallbladder consistent with gallstones. Spleen is within normal limits. Mildly nodular left adrenal gland. The kidneys are nonhydronephrotic.. There are small nonobstructing renal calculi. Bladder is thick-walled. The bowel pattern is nonobstructing.. Some limitation from motion here. Region of the pancreas is unremarkable. Abdominal wall repair is noted. There is no bulky adenopathy Some atherosclerotic changes within the vessels. No free fluid in the deep pelvis. Review of the bone windows does not demonstrate acute finding. No fracture is seen. No suspicion for a bony lesion. Some degenerative changes are noted here. CT/CT abdomen pelvis wo IV con IMPRESSION: No acute finding. In the chest prominent subcarinal node borderline. This may be reactive. Attention to follow-up. In the abdomen pelvis small left adrenal nodule may be incidental. Cannot adequately characterize. Consider adrenal protocol CT. Thick-walled bladder could be cystitis or hypertrophy. Gallstones. Nodular left thyroid. Recommend ultrasound Other findings as noted above
[2022-11-12 18:03] VITALS: BP 151/83; BP 155/69; PULSE 105; RESP 16; TEMP 36.9; O2SAT 98; BMI 30.7
--- NOTE | 2022-11-12 18:19 | ECG_ITS ---
Test Reason : FALL Blood Pressure : / mmHG Vent. Rate : 089 BPM Atrial Rate : 089 BPM P-R Int : 168 ms QRS Dur : 078 ms QT Int : 352 ms P-R-T Axes : 060 044 055 degrees QTc Int : 428 ms Normal sinus rhythm Normal ECG When compared with ECG of 02-MAY-2022 10:18, Nonspecific T wave abnormality no longer evident in Inferior leads Referred By: Jennifer Milian Electronically Signed By:MAN HAZEL
--- NOTE | 2022-11-12 19:00 | PC.NURSE ---
Patient assessed with use of medical clinic manager , primary language Jenna Mackenzie . heart rate regular at 103 beats per minute . breathing even and unlabored . lungs clear throughout . skin pink warm and dry . patient reports a fall two days ago . reports right elbow pain , right thigh / leg pain that is a 9 out of 10 . patient has a bruise located on upper right side of her back shoulder . IV placed in left A.C . Labs sent . Medicated with Toradol as ordered by provider . bed at lowest position . patient aware of plan of care .
[2022-11-12] MEDS: Ketorolac Tromethamine 30 MG/ML VIAL 15 MG IVPUSH (19:13)
[2022-11-12 19:22] LABS: Prothrombin Time 11.1 SEC (10.0-13.1)
--- NOTE | 2022-11-12 19:53 | ED_ITS ---
HPI - Fall General Chief Complaint: Fall Stated Complaint: FLANK PAIN, FALL 2 DAYS AGO Time Seen by Provider: 11/12/22 17:42 Source: patient Mode of arrival: EMS History of Present Illness HPI Narrative: 77-year-old female who denies anticoagulation is brought in by EMS for continued pain after a fall that she sustained 2 days ago without head strike or loss of consciousness. Patient uses a walker at baseline but states that she has co ntinued to have right chest wall pain right-sided abdominal pain as well as right pelvic pain. She otherwise denies any shortness of breath, chest pain, nausea, vomiting, diarrhea but states she has noted some urinary burning. Related Data Home Medications Medication Instructions Recorded Confirmed blood glucose control high and low #1 ea 01/31/21 09/25/22 solution blood sugar diagnostic #10 ea 01/31/21 09/25/22 blood-glucose meter #1 ea 01/31/21 09/25/22 lancets 30 gauge #100 ea 01/31/21 09/25/22 lancing device #1 ea 01/31/21 09/25/22 fluticasone 250 mcg-salmeterol 50 1 inh inhalation BID 04/02/22 09/25/22 mcg/dose blistr powdr for inhalation (Advair Diskus) montelukast 10 mg tablet 10 mg PO BEDTIME 05/01/22 09/25/22 linagliptin 5 mg tablet (Tradjenta) 5 mg PO DAILY 09/25/22 09/25/22 Previous Rx's Medication Instructions Recorded cholecalciferol (vitamin D3) 25 25 mcg PO DAILY 90 days #90 tabs 02/24/22 mcg (1,000 unit) tablet diphenhydramine HCl 25 mg capsule 25 mg PO TID PRN for allergies 30 03/25/22 (Banophen) days #90 caps albuterol sulfate 2.5 mg/3 mL 2.5 mg (3 mL) inhalation Q6H PRN 03/31/22 (0.083 %) solution for nebulization bronchospasm 30 days #360 mL ferrous sulfate 324 mg (65 mg 324 mg PO DAILY #30 tabs 05/05/22 iron) tablet,delayed release metoprolol succinate 50 mg 50 mg PO DAILY #30 tabs 05/05/22 tablet,extended release 24 hr (Toprol XL) valsartan 40 mg tablet 40 mg PO BID #60 tabs 05/05/22 atorvastatin 80 mg tablet 80 mg PO BEDTIME 90 days #90 tabs 06/13/22 trazodone 50 mg tablet 50 mg PO BEDTIME 90 days #90 tabs 06/13/22 metformin 500 mg tablet,extended 1,000 mg PO BEDTIME 90 days #180 09/04/22 release 24 hr tabs aspirin 81 mg tablet,delayed 81 mg PO DAILY 90 days #90 tabs 09/12/22 release empagliflozin 25 mg tablet 25 mg PO DAILY 90 days #90 tabs 10/08/22 (Jardiance) furosemide 40 mg tablet 40 mg PO DAILY 90 days #90 tabs 11/03/22 cefdinir 300 mg capsule 300 mg PO Q12H 7 days #14 caps 11/12/22 Allergies Allergy/AdvReac Type Severity Reaction Status Date / Time fish derived [FISH] Allergy Mild RASH, Verified 11/06/22 10:36 ITCHY, SWELLING linagliptin [Tradjenta] AdvReac Mild rash Verified 11/06/22 10:36 Review of Systems Review of Systems: Pertinent positives and negatives as stated in HPI. [facility] Past Medical History Source: nursing notes reviewed Medical History Acute HFrEF (heart failure with reduced ejection fraction) Anemia, normocytic normochromic Anxiety Asthma Back pain COPD (chronic obstructive pulmonary disease) COPD (chronic obstructive pulmonary disease) Depression Diabetes mellitus Diabetes mellitus, type 2 Essential hypertension Hypertension Hypovitaminosis D Left elbow pain Leg weakness Obesity (BMI 30-39.9) Obstructive sleep apnea syndrome Polyuria Pure hypercholesterolemia Renal insufficiency Tachycardia Wheelchair bound Surgical History H/O: hysterectomy History of tubal ligation Family History Family History Father Cancer Mother Diabetes Daughter Myocardial infarction Social History Social History Household Members: None Housing: Apartment Do you presently have visiting nurse or other home services: No Alcohol intake: never Patient Tobacco Use Status: Never used Tobacco Smoked in Last 30 Days: No e-Cigarette/Vaping Use: Never Used Second Hand Smoke Exposure: No Advance Directives: Yes Advance Directives on File: Yes Advance Directives Date on File: 11/09/00 service: No Current occupational status: disabled Cognitive needs: Yes Hearing needs: No Vision needs: No Physical Exam 2 Vital Signs: Vital Signs: Last Vital Signs Temp 99.1 F 11/12/22 19:56 Pulse 85 11/12/22 19:56 Resp 25 H 11/12/22 19:56 BP 157/58 H 11/12/22 19:56 Pulse Ox 99 11/12/22 19:56 O2 Del Method 11/12/22 19:56 BMI result Body Mass Index 30.7 VITAL SIGNS: Reviewed. GENERAL: Well developed, well nourished, in no acute distress. HEAD: Normocephalic/atraumatic EYES: PERRLA, EOMI EARS: Ext canals without abnormality NOSE: Nares patent bilateral OROPHARYNX: no oral lesions noted, posterior pharynx clear NECK: Supple, no adenopathy LUNGS: Normal breath sounds. No adventitious sounds or accessory muscle use. SpO2<98>; CHEST WALL: There is tenderness to palpation along the lateral chest wall without obvious deformity or crepitus, patient does have bruising noted to the right posterior shoulder. CARDIOVASCULAR: Tachycardic rate and rhythm without noted murmurs, no JVD or lower extremity edema. ABDOMEN: Soft, right-sided abdominal discomfort without rebound, no ecchymosis or contusions noted, non-distended with bowel sounds. PELVIS: Stable, but tenderness over the very proximal anterior portion of the thigh as well as tenderness to palpation over right greater tuberosity MUSCULOSKELETAL: No tenderness, deformities, or effusions noted on gross inspection. EXTREMITIES: No cyanosis, clubbing or edema. SKIN: Inspection of the skin reveals no rashes NEUROLOGIC: Alert and oriented x 4. Strength and sensation to light touch were grossly intact x 4. Medications Administered Discontinued Medications Generic Name Dose Route Start Last Admin Trade Name Freq PRN Reason Stop Dose Admin Ketorolac Tromethamine 15 mg 11/12/22 18:20 11/12/22 19:13 Ketorolac Tromethamine 30 Mg/Ml Vial IVPUSH 11/12/22 18:21 15 mg ONCE ONE Administration Medical Decision Making Medical Decision Making MDM Narrative: 77-year-old female, not on anticoagulation who presents with persistent and continued pain since her fall 2 days ago. Although patient has stated that she has been able to walk with a walker I have concerns for possible fracture. I received a call saying that patient's Hgb-6.3.... I do not believe this, I ordered a type and screen as well as the repeat H&H which has been returned at 2100-9.0/28.8 which is patient is chronically stable level. Will pursue repeat CMP as well. 2154: I received a call back from the laboratory who states that the CMP is also within normal limits and comparable to patient's stable baseline. After the entire workup with the patient my review and interpretation is the patient has an acute UTI which likely contributed to her fall, she received 1 g of Rocephin here in the emergency room, she is otherwise afebrile and hemodynamically stable. She received medications for aches and pains sustained in her fall but otherwise there is no evidence of bleeding/fractures/dislocations. She will be sent home with a prescription for antibiotics. Differential Diagnosis Differential Diagnoses: The differential diagnosis associated with the presentation includes I will rule out rib fractures, pneumothorax, pelvic/femur fracture, abdominal wall contusion, UTI Lab Data MDM Lab Attestation statement: I reviewed the patient's lab results. Please see the above discussion Result Diagrams: 11/12/22 20:12 11/12/22 19:10 Labs: Lab Results 11/12/22 11/12/22 11/12/22 Range/Units 19:10 19:10 19:10 WBC 4.9 (4.8-10.8) X10*3/uL RBC 2.10 L D (4.20-5.50) X10*6/uL Hgb 6.3 L* D (12.0-16.0) g/dl Hct 20.5 L* D (37.0-47.0) % MCV 97.6 (80.0-98.0) fL MCH 30.0 (27.0-33.0) pg MCHC 30.7 L (31.0-35.0) g/dl RDW 13.3 (11.0-16.0) % Plt Count 209 D (160-400) X10*3/uL MPV 9.1 L (9.4-12.3) fL Immature Gran % (Auto) 1.2 H (0.0-0.4) % Neut % (Auto) 66.0 (45-73) % Lymph % (Auto) 23.1 (20-40) % [place] % (Auto) 8.9 (2-11) % Eos % (Auto) 0.4 (0-4) % Baso % (Auto) 0.4 (0-2) % Lymph # (Auto) 1.1 L (1.2-4.9) X10*3/uL [place] # (Auto) 0.4 (0.1-1.2) X10*3/uL Eos # (Auto) 0.0 (0.0-0.4) X10*3/uL Baso # (Auto) 0.0 (0.0-0.2) X10*3/uL Abs Immat Gran (auto) 0.06 H (0.00-0.03) X10*3/uL Absolute Neuts (auto) 3.3 (2.0-8.3) x10*3/uL Absolute Nucleated RBC 0.000 (0.0-0.012) X10*3/uL Nucleated RBC % (auto) 0.0 (0.0-0.2) /100WBC PT 11.1 (10.0-13.1) SEC INR 1.0 (0.9-1.1) Sodium 141 (135-145) mmol/L Potassium 2.8 L D (3.3-5.1) mmol/L Chloride 123 H (96-108) mmol/L Carbon Dioxide 14 L (22-29) mmol/L Anion Gap 7 L (12-20) BUN 23 H (9-16) mg/dL Creatinine 0.86 (0.5-1.4) mg/dL Estim Creat Clear Calc 47.5 Estimated GFR > 60 Random Glucose 200 H (60-115) mg/dL Calcium 5.1 L* D (8.4-10.2) mg/dL Total Bilirubin < 0.2 (0.0-1.0) mg/dL AST 6 (5-31) U/L ALT 7 (0-31) U/L Alkaline Phosphatase 38 L (39-117) U/L Total Protein 3.3 L (6.5-8.0) g/dL Albumin 2.1 L (3.5-5.0) g/dL Urine Color Urine Appearance Urine pH (5.0-9.0) Ur Specific Sherman (1.005-1.025) Urine Protein (Neg-Trace) mg/dL Urine Glucose (UA) (Negative) mg/dL Urine Ketones (Negative) mg/dL Urine Blood (Negative) Urine Nitrite (Negative) Ur Leukocyte Esterase (Negative) Urine RBC (0-2) /HPF Urine WBC (0-5) /HPF Ur Squamous Epith Cells (0-2) /HPF Urine Bacteria (None Seen) Hyaline Casts (0-2) /LPF Urine Yeast Blood Type Antibody Screen 11/12/22 11/12/22 11/12/22 Range/Units 20:12 20:12 21:13 WBC (4.8-10.8) X10*3/uL RBC (4.20-5.50) X10*6/uL Hgb 9.0 L D (12.0-16.0) g/dl Hct 28.8 L D (37.0-47.0) % MCV (80.0-98.0) fL MCH (27.0-33.0) pg MCHC (31.0-35.0) g/dl RDW (11.0-16.0) % Plt Count (160-400) X10*3/uL MPV (9.4-12.3) fL Immature Gran % (Auto) (0.0-0.4) % Neut % (Auto) (45-73) % Lymph % (Auto) (20-40) % [place] % (Auto) (2-11) % Eos % (Auto) (0-4) % Baso % (Auto) (0-2) % Lymph # (Auto) (1.2-4.9) X10*3/uL [place] # (Auto) (0.1-1.2) X10*3/uL Eos # (Auto) (0.0-0.4) X10*3/uL Baso # (Auto) (0.0-0.2) X10*3/uL Abs Immat Gran (auto) (0.00-0.03) X10*3/uL Absolute Neuts (auto) (2.0-8.3) x10*3/uL Absolute Nucleated RBC (0.0-0.012) X10*3/uL Nucleated RBC % (auto) (0.0-0.2) /100WBC PT (10.0-13.1) SEC INR (0.9-1.1) Sodium (135-145) mmol/L Potassium (3.3-5.1) mmol/L Chloride (96-108) mmol/L Carbon Dioxide (22-29) mmol/L Anion Gap (12-20) BUN (9-16) mg/dL Creatinine (0.5-1.4) mg/dL Estim Creat Clear Calc Estimated GFR Random Glucose (60-115) mg/dL Calcium (8.4-10.2) mg/dL Total Bilirubin (0.0-1.0) mg/dL AST (5-31) U/L ALT (0-31) U/L Alkaline Phosphatase (39-117) U/L Total Protein (6.5-8.0) g/dL Albumin (3.5-5.0) g/dL Urine Color Yellow Urine Appearance Turbid Urine pH 5.5 (5.0-9.0) Ur Specific Sherman 1.025 (1.005-1.025) Urine Protein 300 (3+) H (Neg-Trace) mg/dL Urine Glucose (UA) >=1000 H (Negative) mg/dL Urine Ketones Negative (Negative) mg/dL Urine Blood Small (1+) H (Negative) Urine Nitrite Positive H (Negative) Ur Leukocyte Esterase Moderate (2+) H (Negative) Urine RBC 0-2 (0-2) /HPF Urine WBC >50 H (0-5) /HPF Ur Squamous Epith Cells 3-5 (0-2) /HPF Urine Bacteria 3+ (None Seen) Hyaline Casts 0-2 (0-2) /LPF Urine Yeast Present Blood Type A Positive Antibody Screen NEGATIVE Independent Interpretation I performed an independent interpretation of an: EKG Interpretation: Normal sinus rhythm, HR-89, no STEMI, VT/QRS/QTC is within normal limits. Radiology Impression Radiologist Impression: My interpretation is in agreement with radiology's impression of imaging studies. Chronic Conditions Patient?s care impacted by: Diabetes Critical Care Time Critical Care Time Critical Care Time: Yes Total Critical Care Time: 60 Attestation: I personally attest to this time spent taking care of the patient. Discharge Plan Discharge Clinical Impression: Acute UTI, Fall Patient Disposition: Home, Self-Care Instructions: Urinary Tract Infection in Women (ED), Fall Prevention for Older Adults (ED) Additional Instructions: 1. Complete todo el curso de antibi?ticos seg?n lo prescrito. 2. Reanude todos srikanth medicamentos caseros seg?n lo prescrito. 3. Realice un seguimiento con browne proveedor de atenci?n primaria llamando a la oficina ma?lisa por la ma?lisa y programando lor stephanie para lor reevaluaci?n adicional para el manejo ambulatorio. Regrese a la jose de emergencias si los s?ntomas empeoran. 1. Complete the entire course of antibiotics as prescribed. 2. Resume all of your home medications as prescribed. 3. Please follow-up with your primary care provider by calling the office tomorrow morning and setting up an appointment for re-evaluation further outpatient management. Return to the ER for any worsening symptoms. Prescriptions: New cefdinir 300 mg capsule 300 mg PO Q12H 7 Days Qty: 14 0RF No Action cholecalciferol (vitamin D3) 25 mcg (1,000 unit) tablet 25 mcg PO DAILY 90 Days Qty: 90 3RF diphenhydramine HCl [Banophen] 25 mg capsule 25 mg PO TID PRN (Reason: for allergies) 30 Days Qty: 90 1RF atorvastatin 80 mg tablet 80 mg PO BEDTIME 90 Days Qty: 90 2RF trazodone 50 mg tablet 50 mg PO BEDTIME 90 Days Qty: 90 1RF metformin 500 mg tablet extended release 24 hr 1,000 mg PO BEDTIME 90 Days Qty: 180 3RF aspirin 81 mg tablet,delayed release (DR/EC) 81 mg PO DAILY 90 Days Qty: 90 1RF Jardiance 25 mg tablet 25 mg PO DAILY 90 Days Qty: 90 1RF furosemide 40 mg tablet 40 mg PO DAILY 90 Days Qty: 90 1RF albuterol sulfate 2.5 mg /3 mL (0.083 %) solution for nebulization 2.5 mg inhalation Q6H PRN (Reason: bronchospasm) 30 Days Qty: 360 0RF Tradjenta 5 mg tablet 5 mg PO DAILY montelukast 10 mg tablet 10 mg PO BEDTIME ferrous sulfate 324 mg (65 mg iron) Tablet,Delayed Release (Dr/Ec) 324 mg PO DAILY Qty: 30 0RF metoprolol succinate [Toprol XL] 50 mg tablet extended release 24 hr 50 mg PO DAILY Qty: 30 0RF valsartan 40 mg tablet 40 mg PO BID Qty: 60 0RF Hold Instructions: Doctor's Order (DME) lancets 30 gauge misc See Rx Instructions topical BID Qty: 100 Rx Instructions: As directed (DME) blood sugar diagnostic Strip See Rx Instructions Not Applicable BID Qty: 10 Rx Instructions: As directed (DME) blood-glucose meter Kit See Rx Instructions .ROUTE .MEDSUPPLY Qty: 1 Rx Instructions: As directed (DME) lancing device Misc See Rx Instructions topical .MEDSUPPLY Qty: 1 Rx Instructions: As directed (DME) blood glucose control high,low Solution See Rx Instructions .ROUTE .MEDSUPPLY Qty: 1 Rx Instructions: As directed fluticasone propion-salmeterol [Advair Diskus] 250-50 mcg/dose blister with device 1 inh inhalation BID Referrals: Lisa Todd MD [Primary Care Provider] -
[2022-11-12 19:56] VITALS: BP 157/58; PULSE 85; RESP 25; TEMP 37.3; O2SAT 99
--- NOTE | 2022-11-12 20:18 | PC.NURSE ---
Pt resting in bed, no needs expressed.
[2022-11-12 20:48] LABS: Hematocrit 28.8 % (37.0-47.0)
[2022-11-12 21:27] LABS: Appearance Urine Turbid; Color Urine Yellow; Glucose Urine UA >=1000 mg/dL (Negative); Leukocyte Esterase Urine Moderate (2+) (Negative); Nitrite Urine Positive (Negative); PH 5.5 (5.0-9.0); Specific Gravity - Urine 1.025 (1.005-1.025); UMIC TRIGGER UACC YES; Urine Blood Small (1+) (Negative); Urine Ketones Negative (Negative); Urine Protein 300 (3+) mg/dL (Neg-Trace)
[2022-11-12 21:47] LABS: Bacteria Urine 3+ (None Seen); Hyaline Casts Urine 0-2 /LPF (0-2); RBC Urine 0-2 /HPF (0-2); UACC Culture Trigger YES; WBC Urine >50 /HPF (0-5)
[2022-11-12 22:03] LABS: Alanine Aminotransferase 16 U/L (0-31); Albumin Level 3.7 g/dL (3.5-5.0); Alkaline Phosphatase 63 U/L (39-117); Anion Gap 14 (12-20); Aspartate Amino Transferase 13 U/L (5-31); Bilirubin Total 0.2 mg/dL (0.0-1.0); Blood Urea Nitrogen 40 mg/dL (9-16); Calcium 9.1 mg/dL (8.4-10.2); Carbon Dioxide 21 mmol/L (22-29); Chloride 109 mmol/L (96-108); Creatinine Clr Calc Pharmacy 19.8; Estimated Glomerular Filt Rate 23; Glucose Random 201 mg/dL (60-115); Potassium 5.2 mmol/L (3.3-5.1); Sodium 139 mmol/L (135-145); Total Protein 6.2 g/dL (6.5-8.0)
[2022-11-12] MEDS: cefTRIAXone sodium 1 GM in 0.9 % Sodium Chloride 50 ML IV (22:06)
== END 2022-11-12 23:33 | disposition home or self-care (01) ==
PROVIDERS: Emergency Provider Student in an Organized Health Care Education/Training Program; PCP Internal Medicine
DX: N39.0 Urinary tract infection, site not specified (principal); Z91.81 History of falling; I10 Essential (primary) hypertension; E78.00 Pure hypercholesterolemia, unspecified; E11.9 Type 2 diabetes mellitus without complications; Z79.899 Other long term (current) drug therapy
CPT/HCPCS: 36415; 71250; 74176; 80053; 81001; 85014; 85018; 85025; 85610; 86850; 86900; 86901; 87086; 93005; 96374; 96375; 99284; 99285; J0696; J1885

== ENCOUNTER 2022-11-14 12:22 | Emergency (ER) | payer OTHER, SELFPAY ==
[2022-11-14 12:29] VITALS: BP 153/69; BP 158/63; PULSE 96; RESP 18; O2SAT 97; O2SAT 98; BMI 32.3
--- NOTE | 2022-11-14 12:34 | ECG_ITS ---
Test Reason : CHEST PAIN Blood Pressure : / mmHG Vent. Rate : 087 BPM Atrial Rate : 087 BPM P-R Int : 140 ms QRS Dur : 080 ms QT Int : 342 ms P-R-T Axes : -19 026 081 degrees QTc Int : 411 ms Normal sinus rhythm Possible Inferior infarct , age undetermined Abnormal ECG When compared with ECG of 12-NOV-2022 19:48, No significant change was found Referred By: Generic ED Physician Electronically Signed By:MAN HAZEL
--- NOTE | 2022-11-14 13:31 | ED_ITS ---
HPI - Chest Pain General Chief Complaint: Chest Pain Stated Complaint: CHEST PAIN Time Seen by Provider: 11/14/22 12:54 Source: patient, EMS and bilingual interpreter Mode of arrival: EMS Limitations: language barrier History of Present Illness HPI narrative: Patient is a 77 year old assigned female at with a history of COPD, CHF, and recent UTI presenting to the emergency department today with right sided flank pain / lower abdominal pain. Patient states that she has been having this pain intermittently for 3 days. Patient states that she was diagnosed with a UTI 3 days ago and has been taking the medication as prescribed. Patient denies any dizziness, lightheadedness, nausea, vomiting, fever, chills, blurry vision, double vision, loss of vision, chest pain, difficulty breathing, shortness of breath, back pain, night sweats, pain with urination, increased urinary frequency, increased urinary urgency, blood in her urine or stool, syncope or a near syncopal episode, recent trauma or falls, bowel incontinence, bladder incontinence, bowel retention, bladder retention, or any other complaints at this time. Pain radiation: none Severity: mild Pain scale (0-10): 3 Relieving factors: nothing Exacerbating factors: nothing Treatment prior to arrival: none Related Data Home Medications Medication Instructions Recorded Confirmed blood glucose control high and low #1 ea 01/31/21 09/25/22 solution blood sugar diagnostic #10 ea 01/31/21 09/25/22 blood-glucose meter #1 ea 01/31/21 09/25/22 lancets 30 gauge #100 ea 01/31/21 09/25/22 lancing device #1 ea 01/31/21 09/25/22 fluticasone 250 mcg-salmeterol 50 1 inh inhalation BID 04/02/22 09/25/22 mcg/dose blistr powdr for inhalation (Advair Diskus) montelukast 10 mg tablet 10 mg PO BEDTIME 05/01/22 09/25/22 linagliptin 5 mg tablet (Tradjenta) 5 mg PO DAILY 09/25/22 09/25/22 Previous Rx's Medication Instructions Recorded cholecalciferol (vitamin D3) 25 25 mcg PO DAILY 90 days #90 tabs 02/24/22 mcg (1,000 unit) tablet diphenhydramine HCl 25 mg capsule 25 mg PO TID PRN for allergies 30 03/25/22 (Banophen) days #90 caps albuterol sulfate 2.5 mg/3 mL 2.5 mg (3 mL) inhalation Q6H PRN 03/31/22 (0.083 %) solution for nebulization bronchospasm 30 days #360 mL ferrous sulfate 324 mg (65 mg 324 mg PO DAILY #30 tabs 05/05/22 iron) tablet,delayed release metoprolol succinate 50 mg 50 mg PO DAILY #30 tabs 05/05/22 tablet,extended release 24 hr (Toprol XL) valsartan 40 mg tablet 40 mg PO BID #60 tabs 05/05/22 atorvastatin 80 mg tablet 80 mg PO BEDTIME 90 days #90 tabs 06/13/22 trazodone 50 mg tablet 50 mg PO BEDTIME 90 days #90 tabs 06/13/22 metformin 500 mg tablet,extended 1,000 mg PO BEDTIME 90 days #180 09/04/22 release 24 hr tabs aspirin 81 mg tablet,delayed 81 mg PO DAILY 90 days #90 tabs 09/12/22 release empagliflozin 25 mg tablet 25 mg PO DAILY 90 days #90 tabs 10/08/22 (Jardiance) furosemide 40 mg tablet 40 mg PO DAILY 90 days #90 tabs 11/03/22 cefdinir 300 mg capsule 300 mg PO Q12H 7 days #14 caps 11/12/22 Allergies Allergy/AdvReac Type Severity Reaction Status Date / Time fish derived [FISH] Allergy Mild RASH, Verified 11/06/22 10:36 ITCHY, SWELLING linagliptin [Tradjenta] AdvReac Mild rash Verified 11/06/22 10:36 Review of Systems Constitutional: Constitutional: Reports no additional constitutional complaints, Denies chills, Denies fever(s) and Denies night sweats Eyes: Eyes: Reports no additional eye complaints, Denies blurry vision, Denies change in vision, Denies diplopia, Denies eye discharge, Denies loss of vision and Denies eye pain ENT: Denies dizziness Cardiovascular: Cardiovascular: Reports no additional cardiovascular complaints, Denies chest pain, Denies lightheadedness, Denies Loss of Consciousness and Denies dyspnea Respiratory: Respiratory: Reports no additional respiratory complaints and Denies dyspnea Gastrointestinal: Gastrointestinal: Reports no additional gastrointestinal complaints, Reports abdominal pain, Denies melena, Denies hematochezia, Denies change in bowel habits and Denies change in stool character Comments: right sided flank pain Genitourinary: Genitourinary: Denies hematuria, Denies urinary frequency, Denies dysuria, Denies urinary incontinence, Denies urinary hesitancy and Denies urinary urgency Musculoskeletal: Musculoskeletal: Reports no additional musculoskeletal complaints, Denies numbness and Denies tingling Neurologic: Denies dizziness, Denies loss of vision, Denies numbness and Denies tingling Psychiatric: Psychiatric: Reports no additional psychiatric complaints Endocrine: Endocrine: Reports no additional endocrine complaints Hematologic/Lymphatic: Hematologic/Lymphatic: Reports no additional hematologic/lymphatic complaints Allergic/Immunologic: Allergic/Immunologic: Reports no additional allergic/immunologic complaints FOR[facility]LY [facility] Past Medical History Attestation statement: The following information was validated with the patient. Source: old records reviewed and nursing notes reviewed Medical History Acute HFrEF (heart failure with reduced ejection fraction) Anemia, normocytic normochromic Anxiety Asthma Back pain COPD (chronic obstructive pulmonary disease) COPD (chronic obstructive pulmonary disease) Depression Diabetes mellitus Diabetes mellitus, type 2 Essential hypertension Hypertension Hypovitaminosis D Left elbow pain Leg weakness Obesity (BMI 30-39.9) Obstructive sleep apnea syndrome Polyuria Pure hypercholesterolemia Renal insufficiency Tachycardia Wheelchair bound Surgical History H/O: hysterectomy History of tubal ligation Family History Family History Father Cancer Mother Diabetes Daughter Myocardial infarction Social History Social History Household Members: None Housing: Apartment Do you presently have visiting nurse or other home services: No Alcohol intake: never Patient Tobacco Use Status: Never used Tobacco e-Cigarette/Vaping Use: Never Used Second Hand Smoke Exposure: No Advance Directives: Yes Advance Directives Information Provided: Yes Advance Directives on File: No Advance Directives Date on File: 11/09/00 service: No Current occupational status: disabled Cognitive needs: Yes Hearing needs: No Vision needs: No Physical Exam Vital Signs: Vital Signs: Last Vital Signs Pulse 96 11/14/22 12:29 Resp 18 11/14/22 12:29 BP 158/63 H 11/14/22 12:29 Pulse Ox 98 11/14/22 12:29 O2 Del Method 11/14/22 12:29 BMI result Body Mass Index 32.3 Const: General: cooperative, no acute distress, alert and awake Nutritional Appearance: well nourished Orientation/consciousness: patient oriented x3 Limitations: no limitations HEENT: Head: Yes normal to inspection and Yes atraumatic Ears: hearing grossly normal bilaterally and external ears normal General nose exam: Normal external nose present, no nasal discharge noted and no epistaxis Face and sinus: Yes normal facial exam, No abrasion and No laceration Mouth: Normal oral and palatal mucosa present, no drooling and no muffled voice Eyes: General: appearance normal, both eyes and all related structures Periorbital: periorbital findings normal Eyelids: Yes eyelids normal Conjunctivae: conjunctivae normal Pupils: Equal, round and reactive pupils present EOM: EOMs intact bilaterally Neck: Neck: Yes normal visual inspection, Yes full ROM and Yes no lymphadenopathy Chest: Chest palpation & inspection: normal inspection of the chest Resp: Effort & Inspection: normal respiratory effort and able to speak in complete sentences Auscultation: clear to auscultation bilaterally Cardio: Rate: regular rate Rhythm: regular rhythm GI: Inspection: Yes normal to inspection Palpation (GI): Soft to palpation, not firm, nontender and no guarding Neuro: General: patient oriented x3 and moves all extremities Cranial nerve s: Yes Equal, round and reactive pupils present Cognition (Neuro): normal cognition Motor exam (neuro): 5/5 motor strength present throughout Sensory Exam: Normal double simultaneous stimulation for sensation Coordination: [id number] test normal Extrem: General: Yes normal to inspection, Yes full ROM and Yes capillary re fill normal Psych: Appearance: grossly normal Mental Status: mental status grossly normal Affect: normal affect Attitude: cooperative Thought process: Normal thought process present Thought content: Normal thought content present Insight: Good insight present (Psych) Medical Decision Making Medical Decision Making MDM Narrative: Patient is a 77 year old assigned female at with a history of CHF, COPD and recent UTI presenting to the emergency department today with right sided flank pain and lower abdominal pain. Patient's physical exam was unremarkable. Patient's blood work was unremarkable. Patient's urine showed continued UTI. Patient's EKG was unremarkable. Patient's abdominal and chest CTs from 11/12/2022 showed no acute process. I explained my physical exam findings as well as all test results to the patient. I answered all questions asked by the patient. I stressed the importance of the patient taking her medication as prescribed. I stressed the importance of the patient following up with her primary care provider. I stressed the importance of the patient returning to the emergency department immediately if her symptoms were to worsen or if she were to develop any dizziness, shortness of breath, difficulty breathing, chest pain, blurry vision, loss of vision, nausea, vomiting, abdominal pain, fever, chills, back pain, or any other complaints. Patient verbalized agreement and understanding with this treatment plan and discharge. Differential Diagnosis Differential Diagnoses: The differential diagnosis associated with the presentation includes UTI, right sided flank pain, abdominal pain Lab Data MDM Lab Attestation statement: I reviewed the patient's lab results. 11/14/22 13:38 11/14/22 13:38 Labs: Lab Results 11/14/22 11/14/22 11/14/22 Range/Units 13:38 13:38 13:38 WBC 8.2 (4.8-10.8) X10*3/uL RBC 3.08 L (4.20-5.50) X10*6/uL Hgb 9.3 L (12.0-16.0) g/dl Hct 29.3 L (37.0-47.0) % MCV 95.1 (80.0-98.0) fL MCH 30.2 (27.0-33.0) pg MCHC 31.7 (31.0-35.0) g/dl RDW 13.2 (11.0-16.0) % Plt Count 362 (160-400) X10*3/uL MPV 9.2 L (9.4-12.3) fL Immature Gran % (Auto) 1.1 H (0.0-0.4) % Neut % (Auto) 71.9 (45-73) % Lymph % (Auto) 19.2 L (20-40) % [place] % (Auto) 6.7 (2-11) % Eos % (Auto) 0.6 (0-4) % Baso % (Auto) 0.5 (0-2) % Lymph # (Auto) 1.6 (1.2-4.9) X10*3/uL [place] # (Auto) 0.6 (0.1-1.2) X10*3/uL Eos # (Auto) 0.1 (0.0-0.4) X10*3/uL Baso # (Auto) 0.0 (0.0-0.2) X10*3/uL Abs Immat Gran (auto) 0.09 H (0.00-0.03) X10*3/uL Absolute Neuts (auto) 5.9 (2.0-8.3) x10*3/uL Absolute Nucleated RBC 0.000 (0.0-0.012) X10*3/uL Nucleated RBC % (auto) 0.0 (0.0-0.2) /100WBC Sodium 139 (135-145) mmol/L Potassium 4.8 (3.3-5.1) mmol/L Chloride 107 (96-108) mmol/L Carbon Dioxide 21 L (22-29) mmol/L Anion Gap 16 (12-20) BUN 39 H (9-16) mg/dL Creatinine 2.08 H (0.5-1.4) mg/dL Estim Creat Clear Calc 19.3 Estimated GFR 23 Random Glucose 296 H (60-115) mg/dL Calcium 9.5 (8.4-10.2) mg/dL Troponin I High Sens 5.8 (<3.5-17.0) ng/L Urine Color Urine Appearance Urine pH (5.0-9.0) Ur Specific [place] (1.005-1.025) Urine Protein (Neg-Trace) mg/dL Urine Glucose (UA) (Negative) mg/dL Urine Ketones (Negative) mg/dL Urine Blood (Negative) Urine Nitrite (Negative) Ur Leukocyte Esterase (Negative) Urine RBC (0-2) /HPF Urine WBC (0-5) /HPF Urine WBC Clumps Ur Squamous Epith Cells (0-2) /HPF Ur Renal Epithelial Cell Urine Bacteria (None Seen) Hyaline Casts (0-2) /LPF Urine Yeast 11/14/22 Range/Units 14:03 WBC (4.8-10.8) X10*3/uL RBC (4.20-5.50) X10*6/uL Hgb (12.0-16.0) g/dl Hct (37.0-47.0) % MCV (80.0-98.0) fL MCH (27.0-33.0) pg MCHC (31.0-35.0) g/dl RDW (11.0-16.0) % Plt Count (160-400) X10*3/uL MPV (9.4-12.3) fL Immature Gran % (Auto) (0.0-0.4) % Neut % (Auto) (45-73) % Lymph % (Auto) (20-40) % [place] % (Auto) (2-11) % Eos % (Auto) (0-4) % Baso % (Auto) (0-2) % Lymph # (Auto) (1.2-4.9) X10*3/uL [place] # (Auto) (0.1-1.2) X10*3/uL Eos # (Auto) (0.0-0.4) X10*3/uL Baso # (Auto) (0.0-0.2) X10*3/uL Abs Immat Gran (auto) (0.00-0.03) X10*3/uL Absolute Neuts (auto) (2.0-8.3) x10*3/uL Absolute Nucleated RBC (0.0-0.012) X10*3/uL Nucleated RBC % (auto) (0.0-0.2) /100WBC Sodium (135-145) mmol/L Potassium (3.3-5.1) mmol/L Chloride (96-108) mmol/L Carbon Dioxide (22-29) mmol/L Anion Gap (12-20) BUN (9-16) mg/dL Creatinine (0.5-1.4) mg/dL Estim Creat Clear Calc Estimated GFR Random Glucose (60-115) mg/dL Calcium (8.4-10.2) mg/dL Troponin I High Sens (<3.5-17.0) ng/L Urine Color Yellow Urine Appearance Turbid Urine pH 5.5 (5.0-9.0) Ur Specific [place] 1.015 (1.005-1.025) Urine Protein 100 (2+) H (Neg-Trace) mg/dL Urine Glucose (UA) 500 H (Negative) mg/dL Urine Ketones Negative (Negative) mg/dL Urine Blood Moderate (2+) H (Negative) Urine Nitrite Negative (Negative) Ur Leukocyte Esterase Large (3+) H (Negative) Urine RBC 0-2 (0-2) /HPF Urine WBC >50 (0-5) /HPF Urine WBC Clumps Present Ur Squamous Epith Cells 3-5 (0-2) /HPF Ur Renal Epithelial Cell Present Urine Bacteria None Seen (None Seen) Hyaline Casts 0-2 (0-2) /LPF Urine Yeast Present Independent Interpretation I performed an independent interpretation of an: EKG Interpretation: Vent. Rate: 087 BPM ? ? Atrial Rate: 087 BPM P-R Int: 140 ms? QRS Dur: 080 ms QT Int: 342 ms ? ? ? P-R-T Axes: -19 026 081 degrees QTc Int: 411 ms ? Normal sinus rhythm Possible Inferior infarct , age undetermined Abnormal ECG When compared with ECG of 12-NOV-2022 19:48, No significant change was found DD/ 1239 Radiology Impression Discussion of test interpretation with radiology: I have reviewed the radiologist's reading. Radiologist Impression: My interpretation is in agreement with the radiologist's impression of these imaging studies. EXAMINATION: CT of the chest abdomen pelvis. Axial imaging with coronal and sagittal reformatted images. Noncontrast. This CT examination was performed using dose optimization techniques as appropriate, variously including the following: *Automated exposure control *Adjustment of mA and/or kV according to patient size (this includes techniques or standardized protocols for targeted exams where dose is matched to indication/reason for exam; i.e. extremities or head) *Use of iterative reconstruction technique. Radiation dose 561. Thoracic inlet shows a nodular left thyroid. Ultrasound recommended. The axillary regions are felt to be unremarkable. Mild coronary calcifications are noted. Mild subcarinal adenopathy. Short axis I cm. This is a noncontrast study but the hilar regions do not appear pathologically enlarged. Imaging of the lung juarez. Right lung; There is no significant infiltrate or effusion. There is no pneumothorax. Left lung; No pneumothorax or effusion. No significant infiltrate. Upper abdomen; Liver is within normal limits. High density within the gallbladder consistent with gallstones. Spleen is within normal limits. Mildly nodular left adrenal gland. The kidneys are nonhydronephrotic.. There are small nonobstructing renal calculi. Bladder is thick-walled. The bowel pattern is nonobstructing.. Some limitation from motion here. Region of the pancreas is unremarkable. Abdominal wall repair is noted. There is no bulky adenopathy Some atherosclerotic changes within the vessels. No free fluid in the deep pelvis. Review of the bone windows does not demonstrate acute finding. No fracture is seen. No suspicion for a bony lesion. Some degenerative changes are noted here. CT/CT chest wo IV con IMPRESSION: No acute finding. ? In the chest prominent subcarinal node borderline. This may be reactive. Attention to follow-up. ? In the abdomen pelvis small left adrenal nodule may be incidental. Cannot adequately characterize. Consider adrenal protocol CT. ? Thick-walled bladder could be cystitis or hypertrophy. ? Gallstones. ? Nodular left thyroid. Recommend ultrasound ? Other findings as noted above Dictated By: Bryan Swartz MD Signed By: Electronically signed by Bryan Swartz MD 11/12/222022 Independent Historian Clinical information obtained from an independent historian. History obtained from or confirmed by: EMS Chronic Conditions Patient?s care impacted by: Other (COPD, CHF) Discharge Plan Discharge Clinical Impression: Urinary tract infection Patient Disposition: Home, Self-Care Instructions: Urinary Tract Infection in Women (ED) Additional Instructions: Continue taking the antibiotic that was prescribed to you 3 days ago for this issue. Follow up with your primary care provider. Return to the emergency department immediately if your symptoms worsen or if you develop any dizziness, shortness of breath, difficulty breathing, chest pain, blurry vision, loss of vision, nausea, vomiting, abdominal pain, fever, chills, back pain, or any other complaints. Contin?e tomando el antibi?cindy que le recetaron hace 3 d?as para charile problema.Evelin un seguimiento con browne proveedor de atenci?n primaria. Regrese al departamento de emergencias de inmediato si srikanth s?ntomas empeoran o si presenta mareos, falta de aire, dificultad para respirar, dolor de pecho, visi?n borrosa, p?rdida de la visi?n, n?useas, v?mitos, dolor abdominal, fiebre, escalofr?os, dolor de espalda o cualquier otras quejas. Prescriptions: No Action cholecalciferol (vitamin D3) 25 mcg (1,000 unit) tablet 25 mcg PO DAILY 90 Days Qty: 90 3RF diphenhydramine HCl [Banophen] 25 mg capsule 25 mg PO TID PRN (Reason: for allergies) 30 Days Qty: 90 1RF atorvastatin 80 mg tablet 80 mg PO BEDTIME 90 Days Qty: 90 2RF trazodone 50 mg tablet 50 mg PO BEDTIME 90 Days Qty: 90 1RF metformin 500 mg tablet extended release 24 hr 1,000 mg PO BEDTIME 90 Days Qty: 180 3RF aspirin 81 mg tablet,delayed release (DR/EC) 81 mg PO DAILY 90 Days Qty: 90 1RF Jardiance 25 mg tablet 25 mg PO DAILY 90 Days Qty: 90 1RF furosemide 40 mg tablet 40 mg PO DAILY 90 Days Qty: 90 1RF albuterol sulfate 2.5 mg /3 mL (0.083 %) solution for nebulization 2.5 mg inhalation Q6H PRN (Reason: bronchospasm) 30 Days Qty: 360 0RF Tradjenta 5 mg tablet 5 mg PO DAILY montelukast 10 mg tablet 10 mg PO BEDTIME ferrous sulfate 324 mg (65 mg iron) Tablet,Delayed Release (Dr/Ec) 324 mg PO DAILY Qty: 30 0RF metoprolol succinate [Toprol XL] 50 mg tablet extended release 24 hr 50 mg PO DAILY Qty: 30 0RF valsartan 40 mg tablet 40 mg PO BID Qty: 60 0RF Hold Instructions: Doctor's Order cefdinir 300 mg capsule 300 mg PO Q12H 7 Days Qty: 14 0RF (DME) lancets 30 gauge misc See Rx Instructions topical BID Qty: 100 Rx Instructions: As directed (DME) blood sugar diagnostic Strip See Rx Instructions Not Applicable BID Qty: 10 Rx Instructions: As directed (DME) blood-glucose meter Kit See Rx Instructions .ROUTE .MEDSUPPLY Qty: 1 Rx Instructions: As directed (DME) lancing device Misc See Rx Instructions topical .MEDSUPPLY Qty: 1 Rx Instructions: As directed (DME) blood glucose control high,low Solution See Rx Instructions .ROUTE .MEDSUPPLY Qty: 1 Rx Instructions: As directed fluticasone propion-salmeterol [Advair Diskus] 250-50 mcg/dose blister with device 1 inh inhalation BID Referrals: Lisa Todd MD [Primary Care Provider] - Interventions: ED Discharge Assessment Last Done: 11/14/22 15:33 Print Language: Chinese
[2022-11-14 13:45] LABS: MANUAL DIFF FLAG NO
[2022-11-14 13:47] LABS: Basophils Percent Auto 0.5 % (0-2); Eosinophils Absolute Auto 0.1 X10*3/uL (0.0-0.4); Eosinophils Percent Auto 0.6 % (0-4); Hematocrit 29.3 % (37.0-47.0); Hemoglobin 9.3 g/dl (12.0-16.0); Imm Gran Abs Auto 0.09 X10*3/uL (0.00-0.03); Imm Gran Pct Auto 1.1 % (0.0-0.4); Lymphocytes Absolute Auto 1.6 X10*3/uL (1.2-4.9); Lymphocytes Percent Auto 19.2 % (20-40); Mean Corpuscular HGB Conc 31.7 g/dl (31.0-35.0); Mean Corpuscular Hemoglobin 30.2 pg (27.0-33.0); Mean Corpuscular Volume 95.1 fL (80.0-98.0); Mean Platelet Volume 9.2 fL (9.4-12.3); Monocytes Absolute Auto 0.6 X10*3/uL (0.1-1.2); Monocytes Percent Auto 6.7 % (2-11); Neutrophils Absolute Auto 5.9 x10*3/uL (2.0-8.3); Neutrophils Percent Auto 71.9 % (45-73); Platelet Count 362 X10*3/uL (160-400); Red Blood Count 3.08 X10*6/uL (4.20-5.50); Red Cell Distribution Width 13.2 % (11.0-16.0); White Blood Count 8.2 X10*3/uL (4.8-10.8)
[2022-11-14 13:57] LABS: Anion Gap 16 (12-20); Blood Urea Nitrogen 39 mg/dL (9-16); Calcium 9.5 mg/dL (8.4-10.2); Carbon Dioxide 21 mmol/L (22-29); Chloride 107 mmol/L (96-108); Creatinine Clr Calc Pharmacy 19.3; Estimated Glomerular Filt Rate 23; Glucose Random 296 mg/dL (60-115); Potassium 4.8 mmol/L (3.3-5.1); Sodium 139 mmol/L (135-145)
[2022-11-14 14:05] LABS: Troponin-I High Sensitivity 5.8 ng/L (<3.5-17.0)
[2022-11-14 14:17] LABS: Appearance Urine Turbid; Color Urine Yellow; Glucose Urine UA 500 mg/dL (Negative); Leukocyte Esterase Urine Large (3+) (Negative); Nitrite Urine Negative (Negative); PH 5.5 (5.0-9.0); Specific Gravity - Urine 1.015 (1.005-1.025); UMIC TRIGGER UACC YES; Urine Blood Moderate (2+) (Negative); Urine Ketones Negative (Negative); Urine Protein 100 (2+) mg/dL (Neg-Trace)
[2022-11-14 14:38] LABS: UACC Culture Trigger YES; WBC Clumps Urine Present; WBC Urine >50 /HPF (0-5)
[2022-11-14 14:40] LABS: Renal Epithelial Cells Urine Present
[2022-11-14 14:41] LABS: Bacteria Urine None Seen (None Seen); Hyaline Casts Urine 0-2 /LPF (0-2); RBC Urine 0-2 /HPF (0-2)
== END 2022-11-14 15:45 | disposition home or self-care (01) ==
PROVIDERS: Physician Assistant Medical; Emergency Provider Emergency Medicine; PCP Internal Medicine
DX: N39.0 Urinary tract infection, site not specified (principal); R07.89 Other chest pain; Z79.899 Other long term (current) drug therapy
CPT/HCPCS: 36415; 80048; 81001; 84484; 85025; 93005; 99284

== ENCOUNTER 2022-11-16 11:47 | Emergency (ER) | payer OTHER, SELFPAY ==
[2022-11-16 12:02] VITALS: BP 137/66; BP 140/61; PULSE 99; RESP 16; TEMP 36.8; O2SAT 98; BMI 33.3
--- NOTE | 2022-11-16 13:04 | PC.NURSE ---
pt states(with precision lens generator present) that she s/p fall on thursday hitting her r leg 04/18 in her bathroom at home. pt denied hitting her head/loc.
[2022-11-16 13:07] LABS: MANUAL DIFF FLAG NO
[2022-11-16 13:08] LABS: Basophils Absolute Auto 0.1 X10*3/uL (0.0-0.2); Basophils Percent Auto 0.7 % (0-2); Eosinophils Percent Auto 0.4 % (0-4); Hematocrit 36.6 % (37.0-47.0); Hemoglobin 11.4 g/dl (12.0-16.0); Imm Gran Abs Auto 0.09 X10*3/uL (0.00-0.03); Lymphocytes Absolute Auto 2.4 X10*3/uL (1.2-4.9); Lymphocytes Percent Auto 26.6 % (20-40); Mean Corpuscular HGB Conc 31.1 g/dl (31.0-35.0); Mean Corpuscular Hemoglobin 29.2 pg (27.0-33.0); Mean Corpuscular Volume 93.6 fL (80.0-98.0); Mean Platelet Volume 8.7 fL (9.4-12.3); Monocytes Absolute Auto 0.6 X10*3/uL (0.1-1.2); Monocytes Percent Auto 6.8 % (2-11); Neutrophils Absolute Auto 5.9 x10*3/uL (2.0-8.3); Neutrophils Percent Auto 64.5 % (45-73); Platelet Count 376 X10*3/uL (160-400); Red Blood Count 3.91 X10*6/uL (4.20-5.50); White Blood Count 9.1 X10*3/uL (4.8-10.8)
[2022-11-16 13:12] VITALS: BP 142/61; PULSE 98; RESP 16; O2SAT 97
[2022-11-16 13:25] LABS: Alanine Aminotransferase 14 U/L (0-31); Albumin Level 4.2 g/dL (3.5-5.0); Alkaline Phosphatase 85 U/L (39-117); Anion Gap 17 (12-20); Aspartate Amino Transferase 13 U/L (5-31); Bilirubin Total 0.3 mg/dL (0.0-1.0); Blood Urea Nitrogen 38 mg/dL (9-16); Calcium 10.8 mg/dL (8.4-10.2); Carbon Dioxide 26 mmol/L (22-29); Chloride 102 mmol/L (96-108); Creatinine Clr Calc Pharmacy 20.4; Estimated Glomerular Filt Rate 24; Glucose Random 153 mg/dL (60-115); Potassium 4.9 mmol/L (3.3-5.1); Sodium 140 mmol/L (135-145); Total Protein 6.9 g/dL (6.5-8.0)
[2022-11-16 13:47] VITALS: BP 165/72; PULSE 92; RESP 16; TEMP 36.5; O2SAT 96
--- NOTE | 2022-11-16 15:21 | ED_ITS ---
HPI - Back Pain/Injury General Chief Complaint: Back Pain/Injury Stated Complaint: back pain Time Seen by Provider: 11/16/22 13:15 Source: patient Mode of arrival: EMS Limitations: language barrier (Patient speaks Zambian only, translator/interpreter) History of Present Illness HPI Narrative: 77-year-old female who presents emergency department for evaluation of lower back pain. Patient states that she fell on 11/12/2022. The patient states that she cannot walk and uses a wheelchair at home. She states that her wheelchair is too big to get into the small bathroom. She states she can stand and walk for short distance and dad is how she usually goes the bathroom. She was trying to walk into her back bathroom and fell to the floor landing on her back. She states since the fall the back pain has been severe, 8/10, worse with movement. She is having difficulty sitting in the wheelchair and sitting secondary to the severity of her pain This is the patient's 3rd visit to the emergency department, she was seen on 11/12/2022 for the initial fall. She had a CT scan of the chest, abdomen pelvis which revealed no acute findings, in reviewing the radiology report, bone windows did not reveal any acute findings. No fracture was seen. No suspicion for bony lesions. She did have some degenerative changes. Patient's urinalysis was positive for wbc's and bacteria however the urine culture from 11/12/2022 grew greater than 100,000 colony-forming units of mixed bacteria. She seen again on 11/14/2022 for increased back pain, was evaluated and discharged home. She states that since being home she has had severe pain, difficulty using her wheelchair, difficulty sitting therefore she came back to the emergency department by ambulance for re-evaluation Related Data Home Medications Medication Instructions Recorded Confirmed blood glucose control high and low #1 ea 01/31/21 09/25/22 solution blood sugar diagnostic #10 ea 01/31/21 09/25/22 blood-glucose meter #1 ea 01/31/21 09/25/22 lancets 30 gauge #100 ea 01/31/21 09/25/22 lancing device #1 ea 01/31/21 09/25/22 montelukast 10 mg tablet 10 mg PO BEDTIME 05/01/22 09/25/22 furosemide 40 mg tablet 40 - 80 mg PO DAILY 11/16/22 Previous Rx's Medication Instructions Recorded cholecalciferol (vitamin D3) 25 25 mcg PO DAILY 90 days #90 tabs 02/24/22 mcg (1,000 unit) tablet albuterol sulfate 2.5 mg/3 mL 2.5 mg (3 mL) inhalation Q6H PRN 03/31/22 (0.083 %) solution for nebulization bronchospasm 30 days #360 mL ferrous sulfate 324 mg (65 mg 324 mg PO DAILY #30 tabs 05/05/22 iron) tablet,delayed release metoprolol succinate 50 mg 50 mg PO DAILY #30 tabs 05/05/22 tablet,extended release 24 hr (Toprol XL) valsartan 40 mg tablet 40 mg PO BID #60 tabs 05/05/22 atorvastatin 80 mg tablet 80 mg PO BEDTIME 90 days #90 tabs 06/13/22 trazodone 50 mg tablet 50 mg PO BEDTIME 90 days #90 tabs 06/13/22 metformin 500 mg tablet,extended 1,000 mg PO BEDTIME 90 days #180 09/04/22 release 24 hr tabs aspirin 81 mg tablet,delayed 81 mg PO DAILY 90 days #90 tabs 09/12/22 release empagliflozin 25 mg tablet 25 mg PO DAILY 90 days #90 tabs 10/08/22 (Jardiance) cefdinir 300 mg capsule 300 mg PO BID 7 days #14 caps 11/14/22 Allergies Allergy/AdvReac Type Severity Reaction Status Date / Time fish derived [FISH] Allergy Mild RASH, Verified 11/06/22 10:36 ITCHY, SWELLING linagliptin [Tradjenta] AdvReac Mild rash Verified 11/06/22 10:36 Review of Systems Review of Systems: Yes all other systems are reviewed and are negative [facility] Past Medical History [facility] Narrative: Social history: She states she lives at home, she does have [employer] care. Medical History Acute HFrEF (heart failure with reduced ejection fraction) Anemia, normocytic normochromic Anxiety Asthma Back pain COPD (chronic obstructive pulmonary disease) COPD (chronic obstructive pulmonary disease) Depression Diabetes mellitus Diabetes mellitus, type 2 Essential hypertension Hypertension Hypovitaminosis D Left elbow pain Leg weakness Obesity (BMI 30-39.9) Obstructive sleep apnea syndrome Polyuria Pure hypercholesterolemia Renal insufficiency Tachycardia Wheelchair bound Surgical History H/O: hysterectomy History of tubal ligation Family History Family History Father Cancer Mother Diabetes Daughter Myocardial infarction Social History Social History Household Members: None Housing: Apartment Do you presently have visiting nurse or other home services: No Alcohol intake: never Patient Tobacco Use Status: Never used Tobacco Smoked in Last 30 Days: No e-Cigarette/Vaping Use: Never Used Second Hand Smoke Exposure: No Use of substances other than those prescribed or required for medical reasons: No Advance Directives: Yes Advance Directives Information Provided: No Advance Directives on File: No Advance Directives Date on File: 11/09/00 service: No Current occupational status: disabled Cognitive needs: Yes Hearing needs: No Vision needs: No Physical Exam Vital Signs: Vital Signs: Last Vital Signs Temp 97.7 F 11/16/22 13:47 Pulse 92 11/16/22 13:47 Resp 16 11/16/22 13:47 BP 165/72 H 11/16/22 13:47 Pulse Ox 96 11/16/22 13:47 O2 Del Method 11/16/22 13:47 BMI result Body Mass Index 33.3 Const: Other: Awake, alert, female patient, appears to be in distress secondary to her pain, has difficulty sitting up secondary to her pain HEENT: Head: Yes normal to inspection, Yes normocephalic and Yes atraumatic Ears: external ears normal General nose exam: Normal external nose present Face and sinus: Yes normal facial exam Mouth: Normal oral and palatal mucosa present Throat: Yes posterior oropharynx normal Eyes: General: appearance normal, both eyes and all related structures Pupils: Equal, round and reactive pupils present Neck: Neck: Yes normal visual inspection, Yes no lymphadenopathy, Yes trachea midline and Yes supple Chest: Chest palpation & inspection: normal inspection of the chest and normal palpation of entire chest wall Resp: Effort & Inspection: normal respiratory effort and able to speak in complete sentences Auscultation: clear to auscultation bilaterally Cardio: Rate: regular rate Rhythm: regular rhythm Heart sounds: S1 normal heart sound present, S2 normal heart sound present and no murmurs GI: Inspection: Yes normal to inspection Palpation (GI): Soft to palpation, nontender and no guarding Auscultation: normal bowel sounds Back/Spine/Pelvis: Other: Patient has tenderness palpation of her paraspinal muscles in the lumbar sacral area as well as her vertebrae in the lumbar sacral area. There is no ecchymosis noted. Skin: General skin exam: no rashes or lesions noted Neuro: Other: A Cranial nerves: Yes CN's II-XII intact bilaterally and Yes Equal, round and reactive pupils present Cognition (Neuro): normal cognition Extrem: General: Yes normal to inspection Psych: Appearance: grossly normal Speech and movement: Normal speech and movement present Affect: normal affect Attitude: cooperative Thought process: Normal thought process present Thought content: Normal thought content present Course Course Course Narrative: 77-year-old female patient who presents emergency department for evaluation of lower back pain after a fall at home on 11/12/2021. Patient was also seen in the emergency department on 11/14/2021 for increased pain. The patient did have an extensive workup on her 1st visit which included CT scan of her chest, abdomen pelvis with no acute findings, specifically no fractures noted of the patient's vertebrae. Patient states she does not walk and uses a wheelchair. The patient however is not able to set up and is having difficulty transferring secondary to her pain. Patient's physical examination did reveal tenderness palpation over her lower vertebral area as well as her paraspinal muscles in lumbar sacral area. The patient was being treated for a urine infection since 11/12/2021 but the patient's urine culture from this day was negative. I did order laboratory evaluation to include CBC, CMP, urinalysis. Patient's pain will be treated with Toradol 15 mg IV morphine 4 mg IV. 1447: My interpretation the patient's laboratory evaluation is as follows: WBC normal. Mild anemia with an H&H of 11.4 and 36.6-this is chronic. BUN and creatinine elevated 38 and 2.0-this is chronic. Glucose elevated 153. Calcium elevated 10.8. LFTs were normal. Given that this is the patient's 3rd visit and she is having significant pain with limited mobility, I will obtain a case management consult and physical therapy to determine this patient qualifies for short-term fdc placement. I did order medical reconciliation and diet for the patient. Medical Decision Making Medical Decision Making [facility] Narrative: 77-year-old female patient who presents emergency department for evaluation of lower back pain after a fall at home on 11/12/2021. Patient was also seen in the emergency department on 11/14/2021 for increased pain. The patient did have an extensive workup on her 1st visit which included CT scan of her chest, abdomen pelvis with no acute findings, specifically no fractures noted of the patient's vertebrae. Patient states she does can only walk short distances and uses a wheelchair. Since the fall, her pain is got worse and she is having trouble sitting in using her wheelchair. Patient's physical examination did reveal tenderness palpation over her lower vertebral area as well as her paraspinal muscles in lumbar sacral area. The patient was being treated for a urine infection since 11/12/2021 but the patient's urine culture from this day was negative therefore she does not need to be on antibiotic. I did order laboratory evaluation to include CBC, CMP, urinalysis. Patient's pain will be treated with Toradol 15 mg IV morphine 4 mg IV. 1447: My interpretation the patient's laboratory evaluation is as follows: WBC normal. Mild anemia with an H&H of 11.4 and 36.6-this is chronic. BUN and creatinine elevated 38 and 2.0-this is chronic. Glucose elevated 153. Calcium elevated 10.8. LFTs were normal. Given that this is the patient's 3rd visit and she is having significant pain with limited mobility, I will obtain a case management consult and physical therapy to determine this patient qualifies for short-term fdc placement. I did order medical reconciliation and diet for the patient. Patient was ordered to get morphine 15 mg every 6 hours as needed for pain, Tylenol 975 mg every 6 hours as needed for pain. 1624: Start physician observation: The patient will be placed in physician observation and kept in the emergency department overnight since case management and physical therapy are not available at this time. I did turn the patient's care over to my colleague, Dr. Ba Duarte. Differential Diagnosis Differential diagnosis includes was not limited to urinary tract infection, pyelonephritis, lumbar back strain/contusion, vertebral fracture, degenerative disc disease, osteoarthritis Lab Data 11/16/22 13:03 11/16/22 13:03 Labs: Lab Results 11/16/22 11/16/22 Range/Units 13:03 13:03 WBC 9.1 (4.8-10.8) X10*3/uL RBC 3.91 L D (4.20-5.50) X10*6/uL Hgb 11.4 L D (12.0-16.0) g/dl Hct 36.6 L D (37.0-47.0) % MCV 93.6 (80.0-98.0) fL MCH 29.2 (27.0-33.0) pg MCHC 31.1 (31.0-35.0) g/dl RDW 13.0 (11.0-16.0) % Plt Count 376 (160-400) X10*3/uL MPV 8.7 L (9.4-12.3) fL Immature Gran % (Auto) 1.0 H (0.0-0.4) % Neut % (Auto) 64.5 (45-73) % Lymph % (Auto) 26.6 (20-40) % Tama % (Auto) 6.8 (2-11) % Eos % (Auto) 0.4 (0-4) % Baso % (Auto) 0.7 (0-2) % Lymph # (Auto) 2.4 (1.2-4.9) X10*3/uL Tama # (Auto) 0.6 (0.1-1.2) X10*3/uL Eos # (Auto) 0.0 (0.0-0.4) X10*3/uL Baso # (Auto) 0.1 (0.0-0.2) X10*3/uL Abs Immat Gran (auto) 0.09 H (0.00-0.03) X10*3/uL Absolute Neuts (auto) 5.9 (2.0-8.3) x10*3/uL Absolute Nucleated RBC 0.000 (0.0-0.012) X10*3/uL Nucleated RBC % (auto) 0.0 (0.0-0.2) /100WBC Sodium 140 (135-145) mmol/L Potassium 4.9 (3.3-5.1) mmol/L Chloride 102 (96-108) mmol/L Carbon Dioxide 26 (22-29) mmol/L Anion Gap 17 (12-20) BUN 38 H (9-16) mg/dL Creatinine 2.00 H (0.5-1.4) mg/dL Estim Creat Clear Calc 20.4 Estimated GFR 24 Random Glucose 153 H (60-115) mg/dL Calcium 10.8 H D (8.4-10.2) mg/dL Total Bilirubin 0.3 (0.0-1.0) mg/dL AST 13 (5-31) U/L ALT 14 (0-31) U/L Alkaline Phosphatase 85 (39-117) U/L Total Protein 6.9 (6.5-8.0) g/dL Albumin 4.2 (3.5-5.0) g/dL Discharge Plan Discharge Clinical Impression: Fall, Lower back pain Prescriptions: No Action cholecalciferol (vitamin D3) 25 mcg (1,000 unit) tablet 25 mcg PO DAILY 90 Days Qty: 90 3RF atorvastatin 80 mg tablet 80 mg PO BEDTIME 90 Days Qty: 90 2RF trazodone 50 mg tablet 50 mg PO BEDTIME 90 Days Qty: 90 1RF metformin 500 mg tablet extended release 24 hr 1,000 mg PO BEDTIME 90 Days Qty: 180 3RF aspirin 81 mg tablet,delayed release (DR/EC) 81 mg PO DAILY 90 Days Qty: 90 1RF Jardiance 25 mg tablet 25 mg PO DAILY 90 Days Qty: 90 1RF albuterol sulfate 2.5 mg /3 mL (0.083 %) solution for nebulization 2.5 mg inhalation Q6H PRN (Reason: bronchospasm) 30 Days Qty: 360 0RF montelukast 10 mg tablet 10 mg PO BEDTIME ferrous sulfate 324 mg (65 mg iron) Tablet,Delayed Release (Dr/Ec) 324 mg PO DAILY Qty: 30 0RF metoprolol succinate [Toprol XL] 50 mg tablet extended release 24 hr 50 mg PO DAILY Qty: 30 0RF valsartan 40 mg tablet 40 mg PO BID Qty: 60 0RF Hold Instructions: Doctor's Order cefdinir 300 mg capsule 300 mg PO BID 7 Days Qty: 14 0RF furosemide 40 mg tablet 40 - 80 mg PO DAILY (DME) lancets 30 gauge misc See Rx Instructions topical BID Qty: 100 Rx Instructions: As directed ([facility] [place]) blood sugar diagnostic Strip See Rx Instructions Not Applicable BID Qty: 10 Rx Instructions: As directed ([facility] [place]) blood-glucose meter Kit See Rx Instructions .ROUTE .MEDSUPPLY Qty: 1 Rx Instructions: As directed ([facility] [place]) lancing device Misc See Rx Instructions topical .MEDSUPPLY Qty: 1 Rx Instructions: As directed ([facility] [place]) blood glucose control high,low Solution See Rx Instructions .ROUTE .MEDSUPPLY Qty: 1 Rx Instructions: As directed
--- NOTE | 2022-11-16 15:55 | MHC.CM.ED ---
Received notification from Dr Gramajo that patient will be a case management consult if work up is negative. Patient was recently in the Er due to a fall. Work up was negative at that time and patient was discharged home. Patient is wheelchair bound at baseline but is unable to even sit in her wheelchair without pain. Patient is active with [facility]. Patient received 3 Moderna vaccines. Continue to monitor for d/c needs.
[2022-11-16] MEDS: Morphine Sulfate 4 MG/ML CARTRIDGE IVPUSH (17:09)
[2022-11-16] MEDS: Ketorolac Tromethamine 15 MG/ML VIAL IVPUSH (17:10)
--- NOTE | 2022-11-16 17:30 | PHA.MEDREC ---
Pharmacy Consult ? Medication Reconciliation Pharmacy has completed the medication reconciliation.
[2022-11-16 17:37] LABS: Appearance Urine Cloudy; Color Urine Yellow; Glucose Urine UA >=1000 mg/dL (Negative); Leukocyte Esterase Urine Moderate (2+) (Negative); Nitrite Urine Negative (Negative); PH 5.5 (5.0-9.0); Specific Gravity - Urine 1.015 (1.005-1.025); UMIC TRIGGER UACC YES; Urine Blood Trace (Negative); Urine Ketones Negative (Negative); Urine Protein 100 (2+) mg/dL (Neg-Trace)
[2022-11-16 17:50] LABS: Bacteria Urine None Seen (None Seen); Hyaline Casts Urine 0-2 /LPF (0-2); RBC Urine 0-2 /HPF (0-2); UACC Culture Trigger YES; WBC Urine >50 /HPF (0-5)
[2022-11-16 21:39] VITALS: BP 123/49; PULSE 105; RESP 18; TEMP 36.6; O2SAT 96
--- NOTE | 2022-11-16 23:47 | PC.NURSE ---
Night time medications now verified by pharmacy. Valsartan is unavailable in ED pyxis. Messaged tipple supervisor and she will deliver to the ED for the pt.
[2022-11-17] MEDS: metFORMIN HCl ER 500 MG TAB.ER.24H 1000 MG PO (00:18)
[2022-11-17] MEDS: Valsartan 40 MG TABLET PO ×2 (00:19→08:50)
[2022-11-17] MEDS: Montelukast Sodium 10 MG TABLET PO (00:19)
[2022-11-17] MEDS: traZODone HCL 50 MG TABLET PO (00:19)
[2022-11-17] MEDS: Atorvastatin Calcium 80 MG TABLET PO (00:19)
--- NOTE | 2022-11-17 00:39 | PC.NURSE ---
Pt. awoke when entering the room. Pt. took her nightime medications. COVID swab completed and sent to lab. Pt. back to sleep.
[2022-11-17 00:40] LABS: COVID-19 Test Negative (Negative); IDNOW Serial# BCCEAD1C
--- NOTE | 2022-11-17 02:57 | PC.NURSE ---
Pt. sleeping, under no apparent distress. Respirations even and unlabored. Will continue to monitor.
--- NOTE | 2022-11-17 06:29 | PC.NURSE ---
Pt. sleeping. Respirations even and unlabored, no apparent distress noted. Will continue to monitor.
[2022-11-17 06:43] VITALS: BP 124/51; PULSE 104; RESP 16; TEMP 36.5; O2SAT 98
--- NOTE | 2022-11-17 07:00 | PC.NURSE ---
Patient resting comfortably no distress noted no SOB or respiratory distress denies chest pain. No facial droop no deviation of tongue grasp equal no drift noted. Complaint of 4/10 pain in back to groin. Primarily Yoruba speaking can understand some polish Will CTM
--- NOTE | 2022-11-17 08:10 | MHC.EDTECH ---
pt up out of bed sitting in the wheelchair, patient belongings on bedside tray within reach, call watt placed on patients lap. pt resting comfortably in wheelchair.
--- NOTE | 2022-11-17 08:19 | PC.NURSE ---
Pharmacy notified need valsation and jardiance
[2022-11-17] MEDS: Furosemide 40 MG TABLET PO (08:27)
[2022-11-17] MEDS: Metoprolol Succinate ER 50 MG TAB.ER.24H PO (08:27)
[2022-11-17] MEDS: Aspirin Enteric Coated 81 MG TABLET.DR PO (08:28)
[2022-11-17] MEDS: Cholecalciferol (Vitamin D3) 25 MCG TABLET PO (08:28)
[2022-11-17] MEDS: Ferrous Sulfate 324 MG TABLET.DR PO (08:28)
[2022-11-17] MEDS: Empagliflozin 25 MG TABLET PO (08:50)
--- NOTE | 2022-11-17 09:14 | MHC.EDTECH ---
pt transferred from wheel chair to stretcher. Repositioned for comfort.
--- NOTE | 2022-11-17 09:51 | PC.NURSE ---
Patient placed back in stretcher from wheelchair reports continued pain 4/10 reports is tolerable. Will CTM
--- NOTE | 2022-11-17 11:50 | MHC.EDTECH ---
pt washed up in bed, new gown given. pt repositioned and resting comfortably.
--- NOTE | 2022-11-17 13:04 | PC.NURSE ---
Case management a bedside with fire patroller awaiting dispo wll CTM
[2022-11-17 13:24] VITALS: BP 123/55; PULSE 92; RESP 18; TEMP 36.8; O2SAT 97
--- NOTE | 2022-11-17 13:36 | MHC.CM.ED ---
Pt has been accepted to [facility] for a 3:30 pm transport by [facility]ara JOSE. Pt in agreement with transfer and asked appropriate questions w/assistance from surveyor's assistant. Call placed to son / HCP Jack who is pleased with d/c plan.
--- NOTE | 2022-11-17 13:42 | PC.NURSE ---
Patient tolerated PO food resting comfortably no distress noted will CTM
[2022-11-17 15:26] VITALS: BP 128/49; PULSE 99; RESP 20; TEMP 36.6; O2SAT 97
--- NOTE | 2022-11-17 15:42 | PC.NURSE ---
rn-rn report called into [facility]. EMS at bedside to transport.
== END 2022-11-17 15:43 | disposition home or self-care (01) ==
PROVIDERS: Emergency Medicine Emergency Medical Services; Emergency Provider Internal Medicine; PCP Internal Medicine
DX: M54.50 Low back pain, unspecified (principal); R26.2 Difficulty in walking, not elsewhere classified; Z20.822 Contact with and (suspected) exposure to COVID-19; Z79.899 Other long term (current) drug therapy
CPT/HCPCS: 36415; 80053; 81001; 85025; 87086; 87088; 87635; 96374; 96375; 97162; 99284; J1885; J2270

== ENCOUNTER 2023-04-07 08:40 | Emergency (ER) | payer OTHER, SELFPAY ==
[2023-04-07 08:46] VITALS: BP 132/48; PULSE 67; O2SAT 98
[2023-04-07 08:47] VITALS: BP 124/42; PULSE 68; RESP 18; TEMP 37.1; O2SAT 99; BMI 33.4
--- NOTE | 2023-04-07 09:08 | ED_ITS ---
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 EMS states she has a history of GI bleed in the past 6 months and sent her in for diarrhea and black stools. Patient is on iron. Onset (ago): hour(s) Severity: mild Related Data Home Medications Medication Instructions Recorded Confirmed blood glucose control high and low #1 ea 01/31/21 09/25/22 solution blood sugar diagnostic #10 ea 01/31/21 09/25/22 blood-glucose meter #1 ea 01/31/21 09/25/22 lancets 30 gauge #100 ea 01/31/21 09/25/22 lancing device #1 ea 01/31/21 09/25/22 montelukast 10 mg tablet 10 mg PO BEDTIME 05/01/22 11/16/22 furosemide 40 mg tablet 40 - 80 mg PO DAILY 11/16/22 11/16/22 Previous Rx's Medication Instructions Recorded albuterol sulfate 2.5 mg/3 mL 2.5 mg (3 mL) inhalation Q6H PRN 03/31/22 (0.083 %) solution for nebulization bronchospasm 30 days #360 mL ferrous sulfate 324 mg (65 mg 324 mg PO DAILY #30 tabs 05/05/22 iron) tablet,delayed release metoprolol succinate 50 mg 50 mg PO DAILY #30 tabs 05/05/22 tablet,extended release 24 hr (Toprol XL) valsartan 40 mg tablet 40 mg PO BID #60 tabs 05/05/22 atorvastatin 80 mg tablet 80 mg PO BEDTIME 90 days #90 tabs 06/13/22 trazodone 50 mg tablet 50 mg PO BEDTIME 90 days #90 tabs 06/13/22 metformin 500 mg tablet,extended 1,000 mg PO BEDTIME 90 days #180 09/04/22 release 24 hr tabs aspirin 81 mg tablet,delayed 81 mg PO DAILY 90 days #90 tabs 09/12/22 release empagliflozin 25 mg tablet 25 mg PO DAILY 90 days #90 tabs 10/08/22 (Jardiance) cefdinir 300 mg capsule 300 mg PO BID 7 days #14 caps 11/14/22 cholecalciferol (vitamin D3) 25 25 mcg PO DAILY 90 days #90 tabs 03/09/23 mcg (1,000 unit) tablet Allergies Allergy/AdvReac Type Severity Reaction Status Date / Time fish derived [FISH] Allergy Mild RASH, Verified 11/06/22 10:36 ITCHY, SWELLING linagliptin [Tradjenta] AdvReac Mild rash Verified 11/06/22 10:36 Review of Systems Review of Systems: Yes all other systems are reviewed and are negative Neurologic: Denies Sensory deficit (Neuro) COUNTS INCLUDE 234 BEDS AT THE [facility] Past Medical History Medical History Acute HFrEF (heart failure with reduced ejection fraction) Anemia, normocytic normochromic Anxiety Asthma Back pain COPD (chronic obstructive pulmonary disease) COPD (chronic obstructive pulmonary disease) Depression Diabetes mellitus Diabetes mellitus, type 2 Essential hypertension Hypertension Hypovitaminosis D Left elbow pain Leg weakness Obesity (BMI 30-39.9) Obstructive sleep apnea syndrome Polyuria Pure hypercholesterolemia Renal insufficiency Tachycardia Wheelchair bound Surgical History H/O: hysterectomy History of tubal ligation Family History Family History Father Cancer Mother Diabetes Daughter Myocardial infarction Social History Social History Household Members: None Housing: Apartment Do you presently have visiting nurse or other home services: No Alcohol intake: unknown Patient Tobacco Use Status: Never used Tobacco e-Cigarette/Vaping Use: Never Used Second Hand Smoke Exposure: No Advance Directives: Yes Advance Directives on File: Yes Advance Directives Date on File: 11/18/22 service: No Current occupational status: disabled Cognitive needs: Yes Hearing needs: No Vision needs: No Physical Exam Vital Signs: Vital Signs: Last Vital Signs Temp 98.8 F 04/07/23 08:47 Pulse 80 04/07/23 14:14 Resp 16 04/07/23 14:14 BP 131/41 L 04/07/23 14:14 Pulse Ox 96 04/07/23 14:14 O2 Del Method Room Air 04/07/23 14:14 BMI result Body Mass Index 33.4 Const: Other: elderly female General: healthy appearing Nutritional Appearance: average body habitus Orientation/consciousness: oriented to person and patient oriented x3 Limitations: no limitations HEENT: Head: Yes normal to inspection Ears: external ears normal General nose exam: Normal external nose present Mouth: Normal oral and palatal mucosa present and oropharynx normal Throat: Yes posterior oropharynx normal Eyes: General: appearance normal, both eyes and all related structures Neck: Other: supple Neck: Yes normal visual inspection Chest: Chest palpation & inspection: normal inspection of the chest Resp: Auscultation: clear to auscultation bilaterally Cardio: Jugular venous distension: no JVD Rate: regular rate Rhythm: regular rhythm Heart sounds: S1 normal heart sound present and S2 normal heart sound present GI: Inspection: Yes normal to inspection Palpation (GI): Soft to palpation, nontender and No hepatosplenomegaly present Auscultation: normal bowel sounds : Other: rectal black stool heme negative General: Yes no CVA tenderness Back/Spine/Pelvis: Back: no CVA tenderness Skin: General skin exam: no rashes or lesions noted Neuro: General: oriented to person and patient oriented x3 Cranial nerves: Yes CN's II-XII intact bilaterally Motor exam (neuro): 5/5 motor strength present throughout Sensory Exam: No Sensory deficit (Neuro) Extrem: General: Yes normal to inspection Psych: Appearance: grossly normal Course Reevaluation(s) Reevaluation #1: patient hydrated, renal failure heading in the right direction, bicarbonate back to baseline, no evidence of GI bleed Time: 15:11 Medications Administered Generic Name Dose Route Start Last Admin Trade Name Freq PRN Reason Stop Dose Admin Sodium Chloride 1,000 mls @ 200 mls/hr 04/07/23 11:00 04/07/23 11:20 Ns IVCONT 04/07/23 15:59 200 mls/hr .Q5H VANESSA Administration Medical Decision Making Differential Diagnosis Differential Diagnoses: The differential diagnosis associated with the pre sentation includes (GI bleed, renal failure, dehydration) Admission/Observation Consideration of admission/observation: Escalation of care including ad mission/observation considered (In this patient with poor heart, afib, prior GI bleed now with a concern of GI bleed, admission was considered) Lab Data MDM Lab Attestation statement: I reviewed the patient's lab results. 04/07/23 09:19 04/07/23 14:08 Labs: Lab Results 04/07/23 04/07/23 04/07/23 Range/Units 09:19 09:19 09:19 WBC 8.2 (4.8-10.8) X10*3/uL RBC 3.15 L (4.20-5.50) X10*6/uL Hgb 9.2 L (12.0-16.0) g/dl Hct 29.8 L (37.0-47.0) % MCV 94.6 (80.0-98.0) fL MCH 29.2 (27.0-33.0) pg MCHC 30.9 L (31.0-35.0) g/dl RDW 12.7 (11.0-16.0) % Plt Count 253 D (160-400) X10*3/uL MPV 9.4 (9.4-12.3) fL Immature Gran % (Auto) 0.9 H (0.0-0.4) % Neut % (Auto) 51.7 (45-73) % Lymph % (Auto) 35.7 (20-40) % [place] % (Auto) 7.5 (2-11) % Eos % (Auto) 3.3 (0-4) % Baso % (Auto) 0.9 (0-2) % Lymph # (Auto) 2.9 (1.2-4.9) X10*3/uL [place] # (Auto) 0.6 (0.1-1.2) X10*3/uL Eos # (Auto) 0.3 (0.0-0.4) X10*3/uL Baso # (Auto) 0.1 (0.0-0.2) X10*3/uL Abs Immat Gran (auto) 0.07 H (0.00-0.03) X10*3/uL Absolute Neuts (auto) 4.2 (2.0-8.3) x10*3/uL Absolute Nucleated RBC 0.000 (0.0-0.012) X10*3/uL Nucleated RBC % (auto) 0.0 (0.0-0.2) /100WBC Sodium 138 (135-145) mmol/L Potassium 4.8 (3.3-5.1) mmol/L Chloride 112 H (96-108) mmol/L Carbon Dioxide 18 L (22-29) mmol/L Anion Gap 13 (12-20) BUN 79 H (9-16) mg/dL Creatinine 2.32 H (0.5-1.4) mg/dL Estim Creat Clear Calc 17.6 Estimated GFR 20 Random Glucose 101 (60-115) mg/dL Calcium 9.4 D (8.4-10.2) mg/dL Total Bilirubin 0.3 (0.0-1.0) mg/dL Direct Bilirubin 0.1 (0.0-0.5) mg/dL AST 12 (5-31) U/L ALT 17 (0-31) U/L Alkaline Phosphatase 76 (39-117) U/L Total Protein 5.9 L (6.5-8.0) g/dL Albumin 3.5 (3.5-5.0) g/dL Blood Type A Positive Antibody Screen NEGATIVE 04/07/23 Range/Units 14:08 WBC (4.8-10.8) X10*3/uL RBC (4.20-5.50) X10*6/uL Hgb (12.0-16.0) g/dl Hct (37.0-47.0) % MCV (80.0-98.0) fL MCH (27.0-33.0) pg MCHC (31.0-35.0) g/dl RDW (11.0-16.0) % Plt Count (160-400) X10*3/uL MPV (9.4-12.3) fL Immature Gran % (Auto) (0.0-0.4) % Neut % (Auto) (45-73) % Lymph % (Auto) (20-40) % [place] % (Auto) (2-11) % Eos % (Auto) (0-4) % Baso % (Auto) (0-2) % Lymph # (Auto) (1.2-4.9) X10*3/uL [place] # (Auto) (0.1-1.2) X10*3/uL Eos # (Auto) (0.0-0.4) X10*3/uL Baso # (Auto) (0.0-0.2) X10*3/uL Abs Immat Gran (auto) (0.00-0.03) X10*3/uL Absolute Neuts (auto) (2.0-8.3) x10*3/uL Absolute Nucleated RBC (0.0-0.012) X10*3/uL Nucleated RBC % (auto) (0.0-0.2) /100WBC Sodium 140 (135-145) mmol/L Potassium 4.8 (3.3-5.1) mmol/L Chloride 112 H (96-108) mmol/L Carbon Dioxide 20 L (22-29) mmol/L Anion Gap 13 (12-20) BUN 77 H (9-16) mg/dL Creatinine 2.23 H (0.5-1.4) mg/dL Estim Creat Clear Calc 18.4 Estimated GFR 21 Random Glucose 197 H (60-115) mg/dL Calcium 9.2 (8.4-10.2) mg/dL Total Bilirubin (0.0-1.0) mg/dL Direct Bilirubin (0.0-0.5) mg/dL AST (5-31) U/L ALT (0-31) U/L Alkaline Phosphatase (39-117) U/L Total Protein (6.5-8.0) g/dL Albumin (3.5-5.0) g/dL Blood Type Antibody Screen Independent Historian Clinical information obtained from an independent historian. History obtained from or confirmed by: EMS Chronic Conditions Patient?s care impacted by: Other (afib and chf) Discharge Plan Discharge Clinical Impression: Chronic kidney failure, CHF (congestive heart failure) Patient Disposition: Home, Self-Care Instructions: Heart Failure (ED), Chronic Kidney Disease (ED) Prescriptions: No Action atorvastatin 80 mg tablet 80 mg PO BEDTIME 90 Days Qty: 90 2RF trazodone 50 mg tablet 50 mg PO BEDTIME 90 Days Qty: 90 1RF metformin 500 mg tablet extended release 24 hr 1,000 mg PO BEDTIME 90 Days Qty: 180 3RF aspirin 81 mg tablet,delayed release (DR/EC) 81 mg PO DAILY 90 Days Qty: 90 1RF Jardiance 25 mg tablet 25 mg PO DAILY 90 Days Qty: 90 1RF cholecalciferol (vitamin D3) 25 mcg (1,000 unit) tablet 25 mcg PO DAILY 90 Days Qty: 90 3RF albuterol sulfate 2.5 mg /3 mL (0.083 %) solution for nebulization 2.5 mg inhalation Q6H PRN (Reason: bronchospasm) 30 Days Qty: 360 0RF montelukast 10 mg tablet 10 mg PO BEDTIME ferrous sulfate 324 mg (65 mg iron) Tablet,Delayed Release (Dr/Ec) 324 mg PO DAILY Qty: 30 0RF metoprolol succinate [Toprol XL] 50 mg tablet extended release 24 hr 50 mg PO DAILY Qty: 30 0RF valsartan 40 mg tablet 40 mg PO BID Qty: 60 0RF Hold Instructions: Doctor's Order cefdinir 300 mg capsule 300 mg PO BID 7 Days Qty: 14 0RF furosemide 40 mg tablet 40 - 80 mg PO DAILY (DME) lancets 30 gauge misc See Rx Instructions topical BID Qty: 100 Rx Instructions: As directed (DME) blood sugar diagnostic Strip See Rx Instructions Not Applicable BID Qty: 10 Rx Instructions: As directed (DME) blood-glucose meter Kit See Rx Instructions .ROUTE .MEDSUPPLY Qty: 1 Rx Instructions: As directed (DME) lancing device Misc See Rx Instructions topical .MEDSUPPLY Qty: 1 Rx Instructions: As directed (DME) blood glucose control high,low Solution See Rx Instructions .ROUTE .MEDSUPPLY Qty: 1 Rx Instructions: As directed Referrals: Lisa Todd MD [Primary Care Provider] - 5 days
[2023-04-07 09:24] LABS: MANUAL DIFF FLAG NO
[2023-04-07 09:26] LABS: Basophils Absolute Auto 0.1 X10*3/uL (0.0-0.2); Basophils Percent Auto 0.9 % (0-2); Eosinophils Absolute Auto 0.3 X10*3/uL (0.0-0.4); Eosinophils Percent Auto 3.3 % (0-4); Hematocrit 29.8 % (37.0-47.0); Hemoglobin 9.2 g/dl (12.0-16.0); Imm Gran Abs Auto 0.07 X10*3/uL (0.00-0.03); Imm Gran Pct Auto 0.9 % (0.0-0.4); Lymphocytes Absolute Auto 2.9 X10*3/uL (1.2-4.9); Lymphocytes Percent Auto 35.7 % (20-40); Mean Corpuscular HGB Conc 30.9 g/dl (31.0-35.0); Mean Corpuscular Hemoglobin 29.2 pg (27.0-33.0); Mean Corpuscular Volume 94.6 fL (80.0-98.0); Mean Platelet Volume 9.4 fL (9.4-12.3); Monocytes Absolute Auto 0.6 X10*3/uL (0.1-1.2); Monocytes Percent Auto 7.5 % (2-11); Neutrophils Absolute Auto 4.2 x10*3/uL (2.0-8.3); Neutrophils Percent Auto 51.7 % (45-73); Platelet Count 253 X10*3/uL (160-400); Red Blood Count 3.15 X10*6/uL (4.20-5.50); Red Cell Distribution Width 12.7 % (11.0-16.0); White Blood Count 8.2 X10*3/uL (4.8-10.8)
[2023-04-07 09:40] LABS: Alanine Aminotransferase 17 U/L (0-31); Albumin Level 3.5 g/dL (3.5-5.0); Alkaline Phosphatase 76 U/L (39-117); Anion Gap 13 (12-20); Aspartate Amino Transferase 12 U/L (5-31); Bilirubin Direct 0.1 mg/dL (0.0-0.5); Bilirubin Total 0.3 mg/dL (0.0-1.0); Blood Urea Nitrogen 79 mg/dL (9-16); Calcium 9.4 mg/dL (8.4-10.2); Carbon Dioxide 18 mmol/L (22-29); Chloride 112 mmol/L (96-108); Creatinine Clr Calc Pharmacy 17.6; Estimated Glomerular Filt Rate 20; Glucose Random 101 mg/dL (60-115); Potassium 4.8 mmol/L (3.3-5.1); Sodium 138 mmol/L (135-145); Total Protein 5.9 g/dL (6.5-8.0)
[2023-04-07 10:07] VITALS: BP 125/45; PULSE 71; RESP 16; O2SAT 100
[2023-04-07] MEDS: 0.9 % Sodium Chloride 1,000 ML 200 ML IVCONT (11:20)
[2023-04-07 12:17] VITALS: BP 138/40; PULSE 78; RESP 16; O2SAT 96
[2023-04-07 14:14] VITALS: BP 131/41; PULSE 80; RESP 16; O2SAT 96
[2023-04-07 14:31] LABS: Anion Gap 13 (12-20); Blood Urea Nitrogen 77 mg/dL (9-16); Calcium 9.2 mg/dL (8.4-10.2); Carbon Dioxide 20 mmol/L (22-29); Chloride 112 mmol/L (96-108); Creatinine Clr Calc Pharmacy 18.4; Estimated Glomerular Filt Rate 21; Glucose Random 197 mg/dL (60-115); Potassium 4.8 mmol/L (3.3-5.1); Sodium 140 mmol/L (135-145)
== END 2023-04-07 18:02 | disposition home or self-care (01) ==
PROVIDERS: Emergency Provider Emergency Medicine; PCP Internal Medicine
DX: E11.22 Type 2 diabetes mellitus with diabetic chronic kidney disease (principal); I13.0 Hypertensive heart and chronic kidney disease with heart failure and stage 1 through stage 4 chronic kidney disease, or unspecified chronic kidney disease; N18.9 Chronic kidney disease, unspecified; I50.20 Unspecified systolic (congestive) heart failure; I48.0 Paroxysmal atrial fibrillation; E78.00 Pure hypercholesterolemia, unspecified; D64.9 Anemia, unspecified; Z79.899 Other long term (current) drug therapy; Z79.02 Long term (current) use of antithrombotics/antiplatelets
CPT/HCPCS: 36415; 80048; 80076; 85025; 86850; 86900; 86901; 99283

== ENCOUNTER → 2023-05-14 12:07 | Outpatient (BNVA) | payer OTHER, SELFPAY | PROVIDERS: Visit Provider Internal Medicine ==

== ENCOUNTER 2023-07-31 10:46 | Outpatient (REF) | payer OTHER, SELFPAY ==
[2023-07-31 13:36] LABS: Basophils Absolute Auto 0.1 X10*3/uL (0.0-0.2); Basophils Percent Auto 0.9 % (0-2); Eosinophils Absolute Auto 0.4 X10*3/uL (0.0-0.4); Eosinophils Percent Auto 4.5 % (0-4); Hematocrit 32.5 % (37.0-47.0); Hemoglobin 9.5 g/dl (12.0-16.0); Imm Gran Abs Auto 0.08 X10*3/uL (0.00-0.03); Imm Gran Pct Auto 0.9 % (0.0-0.4); Lymphocytes Absolute Auto 2.7 X10*3/uL (1.2-4.9); Lymphocytes Percent Auto 30.2 % (20-40); MANUAL DIFF FLAG SCAN; Mean Corpuscular HGB Conc 29.2 g/dl (31.0-35.0); Mean Corpuscular Hemoglobin 29.4 pg (27.0-33.0); Mean Corpuscular Volume 100.6 fL (80.0-98.0); Monocytes Absolute Auto 0.6 X10*3/uL (0.1-1.2); Monocytes Percent Auto 6.4 % (2-11); Neutrophils Absolute Auto 5.2 x10*3/uL (2.0-8.3); Neutrophils Percent Auto 57.1 % (45-73); PLT CLUMP 1; Red Blood Count 3.23 X10*6/uL (4.20-5.50); Red Cell Distribution Width 12.7 % (11.0-16.0); SCAN SMEAR FLAG 1
[2023-07-31 13:58] LABS: Platelet Count 146 X10*3/uL (160-400); White Blood Count 9.1 X10*3/uL (4.8-10.8)
[2023-07-31 13:59] LABS: SLIDE REVIEW VERIFIED
[2023-07-31 14:13] LABS: Alanine Aminotransferase 15 U/L (0-31); Albumin Level 3.8 g/dL (3.5-5.0); Alkaline Phosphatase 76 U/L (39-117); Anion Gap 17 (12-20); Aspartate Amino Transferase 16 U/L (5-31); Bilirubin Total 0.1 mg/dL (0.0-1.0); Blood Urea Nitrogen 67 mg/dL (9-16); Calcium 9.4 mg/dL (8.4-10.2); Carbon Dioxide 13 mmol/L (22-29); Chloride 110 mmol/L (96-108); Estimated Glomerular Filt Rate 20; Glucose Random 185 mg/dL (60-115); Potassium 4.7 mmol/L (3.3-5.1); Sodium 135 mmol/L (135-145)
[2023-08-03 14:38] LABS: Calcium (PTHI) 9.3 mg/dL (8.6-10.4); PTHI 44 pg/mL (16-77)
== END 2023-07-31 10:47 | disposition home or self-care (01) ==
LOC: HO.10HDL 10:46
PROVIDERS: Visit Provider Internal Medicine Hypertension Specialist
DX: N18.4 Chronic kidney disease, stage 4 (severe) (principal)
CPT/HCPCS: 36415; 80053; 83970; 85025